=== PATIENT | male | born 1960 | race Caucasian/White ===

== ENCOUNTER → 2018-09-10 08:07 | Outpatient (CLI) | payer OTHER, SELFPAY ==
[2018-09-10 08:55] LABS: Add Manual Diff / Slide Review NO; Basophils Absolute Auto 0 /uL (0-100); Basophils Percent Auto 0.5 % (0-2); Eosinophils Absolute Auto 200 /uL (0-450); Eosinophils Percent Auto 3.3 % (2-4); Hematocrit 44.9 % (41-53); Hemoglobin 15.6 g/dL (13.5-17.5); Lymphocytes Absolute Auto 1700 /uL (1100-4500); Lymphocytes Percent Auto 27.3 % (25-40); Mean Corpuscular HGB Conc 34.8 % (30-36); Mean Corpuscular Hemoglobin 32.4 PG (26-34); Monocytes Absolute Auto 600 /uL (0-900); Monocytes Percent Auto 9.6 % (3-14); Neutrophils Absolute Auto 3600 /uL (1500-7000); Neutrophils Percent Auto 59.3 % (50-75); Platelet Count 261 X10^3/uL (150-400); Red Blood Cell Count 4.83 X10^6/uL (4.5-5.9); Red Cell Distribution Width 13.3 % (11.6-14.8); White Blood Cell Count 6.1 X10^3/uL (4.5-11.0)
[2018-09-10 09:20] LABS: Alanine Aminotransferase 21 IU/L (21-72); Albumin 4.2 g/dL (3.5-5.0); Albumin Globulin Ratio 1.5 (1.0-2.8); Alkaline Phosphatase 72 U/L (38-126); Aspartate Aminotransferase 24 IU/L (17-59); Bilirubin Total 0.9 mg/dL (0.2-1.3); Blood Urea Nitrogen 18 mg/dL (9-20); Calcium 9.4 mg/dL (8.4-10.2); Carbon Dioxide 29 mmol/L (22-32); Chloride 104 mmol/L (98-107); Cholesterol 195 mg/dL (140-199); Estimated Glomerular Filt Rate > 60.0 mL/min (>60); Globulin 2.8 g/dL (1.7-4.1); Glucose 104 mg/dL (70-100); HDL Cholesterol 56 mg/dL (40-60); HEMOLYSIS < 15 (0-50); LDL Cholesterol Calculated 121 mg/dL (<100); Potassium 4.4 mmol/L (3.4-5.1); Sodium 140 mmol/L (137-145); Triglycerides 92 mg/dL (35-150)
[2018-09-10 09:49] LABS: Prostate Specific Antigen Scrn 2.42 ng/mL (0.1-4.0)
[2018-09-10 09:50] LABS: Thyroid Stimulating Hormone 1.58 uIU/mL (0.47-4.68)
== END ==
PROVIDERS: PCP Family Medicine; Visit Provider Family Medicine
DX: Z13.29 Encounter for screening for other suspected endocrine disorder (principal); Z12.5 Encounter for screening for malignant neoplasm of prostate; I10 Essential (primary) hypertension; E78.2 Mixed hyperlipidemia
CPT/HCPCS: 36415; 80053; 80061; 84443; 85025; G0103

== ENCOUNTER 2019-06-15 10:42 | Emergency (ER) | payer OTHER, SELFPAY ==
[2019-06-15 10:45] VITALS: BP 157/91; PULSE 83; RESP 14; TEMP 36.7; O2SAT 100
--- NOTE | 2019-06-15 10:54 | PC.NURSE ---
arrived with bloody bandage right upper thigh, dressing removed, noted 2cm laceration, no active bleeding at this time, +distal cms intact. denies other injuries. site cleansed with water, tolerated well.
[2019-06-15] MEDS: TET,DIPH,PERTUSS(ACELL),VAC/PF 0.5 ML SYRINGE IM (11:00)
--- NOTE | 2019-06-15 11:16 | ED_ITS ---
HPI - Wound/Laceration <CEASAR Luis-BC - Last Filed: 06/15/19 12:19> General Chief Complaint: Wound/Laceration Stated Complaint: Rt leg cut above knee Time Seen by Provider: 06/15/19 11:09 Source: patient Mode of arrival: Ambulatory Limitations: no limitations History of Present Illness HPI narrative: The patient is a 58-year-old male nonsmoker with history of hypertension who presents with a chief complaint of a laceration above his right knee. 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 He does not know when his last tetanus was prior to today. He states that the box sealing machine operator was clean, does not think he has any chip fractures or foreign bodies. It happened just prior to arrival and he states he wanted to suture himself at home, but he did not have any numbing medicine. The patient works as in [employer], so he has sutures at home. Related Data Previous Rx's Medication Instructions Recorded amlodipine 5 mg tablet 5 mg PO QDAY #90 tab 05/10/19 lisinopril 40 mg tablet 40 mg PO QDAY #90 tab 05/10/19 cyclobenzaprine 10 mg tablet 10 mg PO BID #20 tab 05/17/19 naproxen 500 mg tablet 500 mg PO BID #30 tab 05/17/19 Allergies Allergy/AdvReac Type Severity Reaction Status Date / Time No Known Drug Allergies Allergy Verified 06/15/19 10:51 Review of Systems <CEASAR Luis-BC - Last Filed: 06/15/19 12:19> Review of Systems Narrative: GENERAL: Denies chills, fatigue, malaise, fever, sweats. HEENT: Denies sinus pain, ear pain, sore throat, difficulty swallowing, dizziness. RESPIRATORY: Denies dyspnea, cough, wheezing, hemoptysis, sputum. CARDIOVASCULAR: Denies chest pain, palpitations, orthopnea, edema, GASTROINTESTINAL: Denies nausea, vomiting, abdominal pain, diarrhea, constipation, melena. : Denies dysuria, frequency, incontinence, hematuria, urinary retention. MUSCULOSKELETAL: denies weakness, joint pain, or bony pain SKIN: See HPI NEUROLOGIC: Denies weakness, headache, numbness, change in speech, confusion, se izures, incoordination. PSYCHIATRIC: No concerning psychosocial issues. 12 point review of systems is negative except for those stated above Patient History <ANGE Luis - Last Filed: 06/15/19 12:19> Medical History Back pain (Acute) Family History Father Age: 92 Hypertension Sister Age: 55 Melanoma Social History Smoking Status: Never smoker Smoking Status: Never smoker alcohol intake frequency: holidays/special occasions only Substance Use Type: does not use Exam <ANGE Luis - Last Filed: 06/15/19 12:19> Narrative Exam Narrative: GENERAL: This is a well-nourished, well-developed patient, in no acute distress HEAD: Atraumatic. Normocephalic. No temporal or scalp tenderness. EYES: Pupils equal round and reactive. Extraocular motions intact. No scleral icterus. No injection or drainage. ENT: Nose without bleeding, purulent drainage or septal hematoma. Throat without erythema, tonsillar hypertrophy or exudate. Uvula midline. Airway patent. NECK: Trachea midline. No JVD or lymphadenopathy. Supple, nontender, no meningeal signs. CARDIOVASCULAR: Regular rate and rhythm RESPIRATORY: No cough. No increased respiratory effort. No accessory muscle use. EXTREMITIES: No clubbing, cyanosis, or edema. No joint tenderness, effusion, or edema noted. Right pedal pulses intact. Laceration as noted in skin exam. Full range of motion noted bilateral knees. BACK: Nontender without deformity or crepitance. No flank tenderness. NEURO: AOx3. SKIN: 1.5 cm laceration just superior to right knee. Through dermis. Fascia visible. No obvious muscle or tendon involvement. Linear, well-approximated Initial Vital Signs Initial Vital Signs: Vital Signs Temperature 98.0 F 06/15/19 10:45 Pulse Rate 83 06/15/19 10:45 Respiratory Rate 14 06/15/19 10:45 Blood Pressure 157/91 H 06/15/19 10:45 Pulse Oximetry 100 06/15/19 10:45 <Xu Maciel MD - Last Filed: 06/15/19 14:25> Initial Vital Signs Initial Vital Signs: Vital Signs Temperature 98.0 F 06/15/19 10:45 Pulse Rate 83 06/15/19 10:45 Respiratory Rate 14 06/15/19 10:45 Blood Pressure 157/91 H 06/15/19 10:45 Pulse Oximetry 100 06/15/19 10:45 Procedures <ANGE Luis - Last Filed: 06/15/19 12:19> Laceration Repair Laceration 1: Site: lower extremity Side (If applicable): right Size (cm): 1.5 Description: linear Depth: simple, single layer Local Anesthetic: lidocaine 1% and with bicarb Amount of anesthesia used (mL): 3 Pre-repair: wound explored, irrigated extensively (Cleansed with chlorhexidine) and deep structures intact Skin layer closed with: nylon Size (cm): 4-0 Number of sutures: 2 Technique: simple, interrupted Course <ANGE Luis - Last Filed: 06/15/19 12:19> Orders Ordered: Discontinued Medications Diphtheria/Tetanus/Acell Pertussis (Adacel) 0.5 ml IM .ONCE ONE Stop: 06/15/19 10:56 Last Admin: 06/15/19 11:00 Dose: 0.5 ml Documented by: MEISENB Lidocaine/Sodium Bicarbonate (Buffered Lidocaine 10 Ml Syr) 10 ml INJ NOW ONE Stop: 06/15/19 11:17 Last Admin: 06/15/19 11:31 Dose: 10 ml Documented by: ROBBI Vital Signs Vital signs: Vital Signs - 8 hr 06/15/19 10:45 06/15/19 11:46 Temperature 98.0 F Pulse Rate 83 75 Respiratory Rate 14 Blood Pressure 157/91 H 128/74 Pulse Oximetry 100 97 <Xu Maciel MD - Last Filed: 06/15/19 14:25> Orders Ordered: Discontinued Medications Diphtheria/Tetanus/Acell Pertussis (Adacel) 0.5 ml IM .ONCE ONE Stop: 06/15/19 10:56 Last Admin: 06/15/19 11:00 Dose: 0.5 ml Documented by: MEISENB Lidocaine/Sodium Bicarbonate (Buffered Lidocaine 10 Ml Syr) 10 ml INJ NOW ONE Stop: 06/15/19 11:17 Last Admin: 06/15/19 11:31 Dose: 10 ml Documented by: ROBBI Vital Signs Vital signs: Vital Signs - 8 hr 06/15/19 10:45 06/15/19 11:46 Temperature 98.0 F Pulse Rate 83 75 Respiratory Rate 14 Blood Pressure 157/91 H 128/74 Pulse Oximetry 100 97 MDM - Wound/Laceration <MELODY LuisP-BC - Last Filed: 06/15/19 12:19> [facility] Narrative Medical decision making narrative: The patient is a 58-year-old male who presents with a chief complaint of laceration above his right knee. His tetanus was updated. He declined an x-ray. Wound was closed as per procedural note which the patient tolerated very well. He was cleansed with chlorhexidine. I discussed at length monitoring for signs and symptoms of infection, follow up for suture removal, coming back to the emergency department for any acute concerns. Patient has no questions or concerns upon discharge and states understanding return precautions as well as follow-up care. Discharge Plan Departure Patient Disposition: Home Clinical Impression: Laceration Discharge Date/Time: 06/15/19 11:47 Instructions: How to Care for a Laceration After Repair, DI for Laceration Repair, DI for Minor Laceration Activity Restrictions/Additional Instructions: Thank you for trusting us with your care today. 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 I placed 2 sutures in your laceration today. We also updated your tetanus. Please monitor your wound for signs and symptoms of infection such as redness, pus etcetera. Please follow up with these occur. I suggest not swimming or sitting and pulls etcetera as this can increase your chance of infection. Your sutures need to come out in approximately 8-10 days Please come back to emergency department for any acute concerns. We suggest following up with primary care provider in the next few days. Prescriptions: No Action cyclobenzaprine 10 mg tablet 10 mg PO BID Qty: 20 RF: 0 naproxen 500 mg tablet 500 mg PO BID Qty: 30 RF: 0 amlodipine [Norvasc] 5 mg tablet 5 mg PO QDAY Qty: 90 RF: 0 lisinopril 40 mg tablet 40 mg PO QDAY Qty: 90 RF: 0 Referrals: Freddie Knight MD [Primary Care Provider] - <Xu Maciel MD - Last Filed: 06/15/19 14:25> Cosign ED Attending Cosignature Attestation: I was immediately available in the department for consultation. This documentation has been reviewed and I agree with assessment and plan. Supervised by Xu Maciel MD
[2019-06-15] MEDS: LIDO 1%/SOD BICARB 8.4% (10ML) 10 ML SYRINGE INJ (11:31)
[2019-06-15 11:46] VITALS: BP 128/74; PULSE 75; O2SAT 97
== END 2019-06-15 11:47 | disposition home or self-care (01) ==
PROVIDERS: Emergency Provider Nurse Practitioner Family; PCP Family Medicine
DX: S81.011A Laceration without foreign body, right knee, initial encounter (principal); W27.8XXA Contact with other nonpowered hand tool, initial encounter; I10 Essential (primary) hypertension; Z23 Encounter for immunization
CPT/HCPCS: 12001; 90471; 99283; 99284; 90715

== ENCOUNTER 2019-12-29 08:15 | Outpatient (RCR) | payer OTHER, SELFPAY ==
--- NOTE | 2019-09-09 18:00 | PT.OPPOC ---
Physical, Occupational & Speech Therapy At [facility] Current Diagnoses Dorsalgia, unspecified (09/09/19) Other muscle spasm (09/09/19) Abnormal posture (09/09/19) Visit Care Team Role Provider Type Freddie Knight MD Attending Provider Physician Primary Care Provider Referring Provider Specialty: Family Practice Address: [address] [place] [address], [facility] Email: [email or web address] Plan Of Care PT-OP-T Assessment and Plan Start: 09/08/19 17:39 Freq: Status: Active Protocol: Document 09/09/19 08:18 LRN (Rec: 09/09/19 17:24 LRN [id number]) Physical Therapy Assessment Rehab Potential Rehabilitation Potential Good Evaluation Complexity Number of Personal Factors/Comorbidities 1-2 Number of Body Systems Impaired 4 or More Clinical Presentation at Evaluation Evolving Impairments Impairments Activity Tolerance,Functional Activities,Pain,Posture,ROM, Strength Goals Four Impairment Pain with traveling/work activities due to poor body awareness & core stab. Short Term Goal (STG) Pt will be educated in proper sitting posture, proper body mechanics for sitting, lifting , reaching, and throwing activities for painfree mobility. STG Duration 10/17/19 Alf Goal (LTG) Improve core stability with pt able to maintain transverse abdominus contraction during above stated functional activities. LTG Duration 11/11/19 Three Impairment Low back pain with sit to stand transfers after prolonged sitting Short Term Goal (STG) Pt will demonstrate improved sitting posture and postural awareness with ability to sit 30 minutes without onset of pain transferring to standing. STG Duration 10/14/19 Ballet Professor Goal (LTG) Improve posture in standing with lessening of C-curve ( apex on L) and pt able to exercise and perform work duties with awareness of proper body mechanics and posture. LTG Duration 11/11/19 Two Impairment Decreased hip mobility (Ext lacks 10 lokesh, ER 20 L, 35 R, IR 25 L, 45 R) Short Term Goal (STG) Pt will be educated in a self care hip flexibility home program of hip stretches. STG Duration 09/23/19 Ballet Professor Goal (LTG) Improve hip mobility for movement painfree in the anterior hip and low back (hip Ext 8 deg's, ER 40 deg's, IR 45 deg's bilaterally) LTG Duration 11/11/19 One Impairment Pt lacks appropriate self care HEP. Alf Goal (LTG) Pt will be independent and safe with a self care HEP to prevent onset of back pain. 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 The pt will benefit from skilled physical therapy to improve hip and trunk mobility, increase core and hip stability, improve posture and body mechanics and education in self care activities and exercises. Physical Therapy Plan Frequency and Duration Frequency of Treatment 2x/Week Plan of Care Start Date 09/09/19 Plan of Care End Date 11/11/19 Therapeutic Interventions Therapeutic Interventions Home Exercise Program,Joint Mobilizations,Manual Therapy, Neuromuscular Re-education, Patient/Caregiver Education, Self-Care/Home Management,Soft Tissue Mobilization,Taping, Therapeutic Activities, Therapeutic Exercises Modalities Cold Pack/Ice Massage,Electric Stimulation,Hot Packs, Ultrasound Next Visit Focus/Plan Next Note Type Treatment Note Next Visit Plan Review instructed home ex given (Hip flexor stretch) & issue HEP, Improve postural awareness, Educate pt in proper sitting ( chair/plane/sofa), standing posture, Educate proper posture and body mechanics with functional activities, Assess trunk strength and automatic TA activation, JMT to lower thoracic and lumbar spine and ex to correct for C-Curve, Progress onto HEP of hip and low back stretches, & core strengthening, End modalities of E-Stim to the back or ice to anterior hips/LB in prone for hip flexor stretch, or passive stretch to hip flexors on MH. Plan of Care Dates Plan of Care Start Date 09/09/19 Plan of Care End Date 11/11/19 Electronically Signed by: Leny Jensen, PT 09/13/19 2219 Please Sign and Return: I have reviewed this Plan of Care and certify that the skilled therapy services above are required to meet the patient?s needs. Physician Signature Date Printed Name and Credentials Clinical Instructor Signature Printed Name and Credentials
--- NOTE | 2019-09-09 18:12 | PT.OIE ---
Current Diagnoses Dorsalgia, unspecified (09/09/19) Other muscle spasm (09/09/19) Abnormal posture (09/09/19) Past Medical History (Last Reviewed 06/15/19 @ 12:15 by ANGE Luis) Back pain (Acute) Visit Care Team Role Provider Type Freddie Knight MD Attending Provider Physician Primary Care Provider Referring Provider Specialty: Family Practice Address: [address] [place] [address], [facility] Email: [email or web address] Physical Therapy Initial Evaluation PT-OP-A Visit Information Start: 09/08/19 17:39 Freq: Status: Active Protocol: Document 09/09/19 08:18 LRN (Rec: 09/09/19 09:08 LRN [id number]) Out-Patient Physical Therapy Visit Information Visit Information Visit Type Initial Evaluation Visit Start Time 08:18 Visit Stop Time 09:08 Total Visit Minutes 50 Visit Number 1 Evaluation Information Evaluation Date 09/09/19 Precautions Precautions Per history review: Plantar fasciitis, essential HTN, L4- L5 surgery thought to be a fusion. PT-OP-B Current Condition Start: 09/08/19 17:39 Freq: Status: Active Protocol: Document 09/09/19 08:18 LRN (Rec: 09/09/19 09:08 LRN [id number]) Current Condition History of Current Condition Onset Date April 2019 Current Complaints Back pain History of Current Condition Pt states he was picking something up (records indicate it was a full bucket of water ) when he experienced back pain. He reports he has had to go [facility] for pain medications to function; therefore the last visit they gave him a referral for PT, then everything shut down due to COVID 19. Currently he has pain in the anterior hips (indicating area of the ASIS) that radiates up his lateral trunk and back bilaterally and sometimes into the ribs posteriorly. He states he can sit, but when he gets up the pain in the ASIS' s pulls him forward, and that it radiates to the back (along iliac crest) and up the back. Sitting makes it worse. Currently he feels he has an episode of back pain coming on . During an episode, he states, the severity of pain spikes 1-9/10, causing him to walk around bent over holding onto the L LB, and it pulls him to the L side,. He is extremely slow to stand. He reports if he hits his heel walking he gets a jolt of pain in the back. 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 He now sits at a desk more since 2001 after getting and having kids. He states he stopped being physically active. Prior Treatments and Tests X-ray 4 yrs ago showed signs of arthritis in the back. Report is unavailable. 6 months rehabilitation after initial surgery (20 yrs ago) and was able to bike and run again. Developmental History Developmental History 20 yrs ago pt had surgery at L4-L5 in [facility] for a disc injury. Something went wrong and he ended up with a severe foot drop that eventually went away. He initially recovered while positioning in supine with knees flexed. He then noticed anterior hip pain when lying straight. He started to ex and do triathlons to counteract the problem. Since then he has had pain and spasms in his back and it has increased in frequency as he has aged. Treatment Goals Patient/Caregiver Goals Pt goal is to stretch episodes out to not have pain, Build muscles to help prevent onset, and to learn what exercises to do to prevent onset. Prior Functional Status Baseline Function- ADL's Modified Independent Baseline Function- Mobility Modified Independent Baseline Function- Gait Modified gait to be careful not to hit heel Baseline Function- Work/School Has ASIS and LBP, dull in nature, after sitting. Baseline Function- Recreation/Hobbies Careful with movements ( throwing ball) Baseline Function- Other Pain before injury/onset was 1 -04/04. Current Functional Impairments (Reported) Functional Limitations- ADL's Dull pain in ASIS radiating to low back after sitting. Takes awhile to straighten up after sitting. Recent episode caused by bending over to put shoes. Denies peripheral pain. Functional Limitations- Mobility/Gait If hits heel with gait gets a jolt of pain in bilateral lower thoracic and low back. When in an episode if hits foot, will get pain. Functional Limitations- Work/School Sitting limit to 1 hour or less. Functional Limitations- Recreation/ Unable to play football with Hobbies son. 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 9 yr old daughter and 11 yr old son. PT-OP-C Subjective Start: 09/08/19 17:39 Freq: Status: Active Protocol: Document 09/09/19 08:18 LRN (Rec: 09/09/19 15:00 LRN [id number]) Patient Questionnaires Oswestry Low Back Index Oswestry Score 30 Oswestry Impairment 20 to 39% Impaired (Score 20- 39) OP-PT Pain Assessment Pain Assessment Grid Paper Pain Assessment Grid Completed Yes Location Left Lower Thoracic Pain Location Details Left lower thoracic and ribs Intensity 3 Description Aching Frequency Intermittent Low back Pain Location Details Across lumbar region Intensity 3 Scale Used Numeric (0 - 10) Description Aching L Anterior Hip Pain Location Details ASIS Intensity 3 Scale Used Numeric (0 - 10) Description Aching R Anterior hip Pain Location Details ASIS Intensity 3 Scale Used Numeric (0 - 10) Description Aching PT-OP-G Mobility & Gait Start: 09/08/19 17:39 Freq: Status: Active Protocol: Document 09/09/19 08:18 LRN (Rec: 09/09/19 17:24 LRN [id number]) OP Mobility Evaluation Bed Mobility Rolling Independent Supine to and from Sit Independent Transfers Sit to Stand With difficulty leaning to L side and holds his L low back. PT-OP-J Posture/Palpation/Skin Start: 09/08/19 17:39 Freq: Status: Active Protocol: Document 09/09/19 08:18 LRN (Rec: 09/09/19 17:24 LRN [id number]) Posture Evaluation Comments Posture Comments Standing the pt has a C-curve of his back with the apex on the left at ~T6. His R Iliac crest is high. Palpation Assessment Location L lower T/S Palpation Location T6-T8 Palpation Findings Soft Tissue Tightness,Muscle Guarding,Tenderness L Lumbar paraspinals Palpation Location L lumbar paraspinals Palpation Findings Soft Tissue Tightness,Muscle Guarding,Tenderness PT-OP-K Range of Motion Start: 09/08/19 17:39 Freq: Status: Active Protocol: Document 09/09/19 08:18 LRN (Rec: 09/09/19 17:24 LRN [id number]) Lumbar Spine Range of Motion Lumbar Spine Active Degrees Testing Position Standing Flexion 70 Extension 20 Lateral Flexion Left 10 Lateral Flexion Right 15 ROM Limitations Soft Tissue Tightness Comments Active rotation is ~20 deg's bilaterally. Rotation R is normal spinal movement. Rotation L has a pivot at L2. Hip Goniometric Range of Motion Hip Right Passive Testing Position Supine Straight Leg Raise 65 Internal Rotation 45 External Rotation 35 Left Passive Testing Position Supine Straight Leg Raise 60 Internal Rotation 25 External Rotation 20 Hip ROM Limitations Hip ROM Limitations Soft Tissue Tightness,Pain Comments Bilateral Hip ext: lacks ~10 deg's as assessed during James test. PT-OP-L Special Tests Start: 09/08/19 17:39 Freq: Status: Active Protocol: Document 09/09/19 08:18 LRN (Rec: 09/09/19 17:24 LRN [id number]) Special Tests Lumbar Spine Special Tests Straight Leg Raise Test Results Borderline right, negative left Comments 60 degs right with ASIS pain, 65 deg's left with HS tightness Hip Special Tests James Test Results postive bilaterally Comments Tight Iliopsoas bilaterally PT-OP-M Strength Start: 09/08/19 17:39 Freq: Status: Active Protocol: Document 09/09/19 08:18 LRN (Rec: 09/09/19 17:24 LRN [id number]) Trunk Strength Trunk Manual Muscle Testing Testing Position Supine Flexion 5 Normal Hip Strength Hip Manual Muscle Testing Right Flexion (L2) 4+ Good+ Adduction 3+ Fair+ Comments Generally 5/5 except as indicated above. Left Comments Generally 5/5 except as indicated above. PT-OP-Q Treatments Start: 09/08/19 17:39 Freq: Status: Active Protocol: Document 09/09/19 08:18 LRN (Rec: 09/09/19 17:24 LRN [id number]) Therapeutic Exercises Supine Exercises Hip flexor stretch Supine Exercise Name James test position with ext of straight leg, followed by active stretch Side bilateral Reps/Minutes 60 plus active stretch x 10 Self-Care/Home Management Treatment Education Patient Education Home Exercise Program Other Education Discussed results of evaluation and plan of care. Activities Self-Care/Home Management Activities I/S pt in home ex of hip flexor stretch as reviewed ( see supine ex) with instruction on hold time and reps for active stretch and for pt to do 2 times, 2-3 times per day. PT-OP-T Assessment and Plan Start: 09/08/19 17:39 Freq: Status: Active Protocol: Document 09/09/19 08:18 LRN (Rec: 09/09/19 17:24 LRN [id number]) Physical Therapy Assessment Rehab Potential Rehabilitation Potential Good Evaluation Complexity Number of Personal Factors/Comorbidities 1-2 Number of Body Systems Impaired 4 or More Clinical Presentation at Evaluation Evolving Impairments Impairments Activity Tolerance,Functional Activities,Pain,Posture,ROM, Strength Goals Four Impairment Pain with traveling/work activities due to poor body awareness & core stab. Short Term Goal (STG) Pt will be educated in proper sitting posture, proper body mechanics for sitting, lifting , reaching, and throwing activities for painfree mobility. STG Duration 10/17/19 Lighting Designer Goal (LTG) Improve core stability with pt able to maintain transverse abdominus contraction during above stated functional activities. LTG Duration 11/11/19 Three Impairment Low back pain with sit to stand transfers after prolonged sitting Short Term Goal (STG) Pt will demonstrate improved sitting posture and postural awareness with ability to sit 30 minutes without onset of pain transferring to standing. STG Duration 10/14/19 Alf Goal (LTG) Improve posture in standing with lessening of C-curve ( apex on L) and pt able to exercise and perform work duties with awareness of proper body mechanics and posture. LTG Duration 11/11/19 Two Impairment Decreased hip mobility (Ext lacks 10 lokesh, ER 20 L, 35 R, IR 25 L, 45 R) Short Term Goal (STG) Pt will be educated in a self care hip flexibility home program of hip stretches. STG Duration 09/23/19 Alf Goal (LTG) Improve hip mobility for movement painfree in the anterior hip and low back (hip Ext 8 deg's, ER 40 deg's, IR 45 deg's bilaterally) LTG Duration 11/11/19 One Impairment Pt lacks appropriate self care HEP. Lighting Designer Goal (LTG) Pt will be independent and safe with a self care HEP to prevent onset of back pain. 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 The pt will benefit from skilled physical therapy to improve hip and trunk mobility, increase core and hip stability, improve posture and body mechanics and education in self care activities and exercises. Physical Therapy Plan Frequency and Duration Frequency of Treatment 2x/Week Plan of Care Start Date 09/09/19 Plan of Care End Date 11/11/19 Therapeutic Interventions Therapeutic Interventions Home Exercise Program,Joint Mobilizations,Manual Therapy, Neuromuscular Re-education, Patient/Caregiver Education, Self-Care/Home Management,Soft Tissue Mobilization,Taping, Therapeutic Activities, Therapeutic Exercises Modalities Cold Pack/Ice Massage,Electric Stimulation,Hot Packs, Ultrasound Next Visit Focus/Plan Next Note Type Treatment Note Next Visit Plan Review instructed home ex given (Hip flexor stretch) & issue HEP, Improve postural awareness, Educate pt in proper sitting ( chair/plane/sofa), standing posture, Educate proper posture and body mechanics with functional activities, Assess trunk strength and automatic TA activation, JMT to lower thoracic and lumbar spine and ex to correct for C-Curve, Progress onto HEP of hip and low back stretches, & core strengthening, End modalities of E-Stim to the back or ice to anterior hips/LB in prone for hip flexor stretch, or passive stretch to hip flexors on MH.
--- NOTE | 2019-09-23 17:12 | PT.OTN ---
Current Diagnoses Dorsalgia, unspecified (09/23/19) Other muscle spasm (09/23/19) Abnormal posture (09/23/19) Physical Therapy Treatment Note PT-OP-A Visit Information Start: 09/08/19 17:39 Freq: Status: Active Protocol: Document 09/23/19 09:51 LRN (Rec: 09/23/19 10:34 LRN [id number]) Out-Patient Physical Therapy Visit Information Visit Information Visit Type Treatment Note Visit Start Time 09:51 Visit Stop Time 10:40 Total Visit Minutes 49 Visit Number 2 Evaluation Information Evaluation Date 09/09/19 Precautions Precautions Per history review: Plantar fasciitis, essential HTN, L4- L5 surgery thought to be a fusion. 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 9 yr old daughter and 11 yr old son. PT-OP-C Subjective Start: 09/08/19 17:39 Freq: Status: Active Protocol: Document 09/23/19 09:51 LRN (Rec: 09/23/19 10:34 LRN [id number]) OP-PT Subjective Patient Comments Patient Comments States 4 days ago had to drop the anchor to his boat, then pulled it up quickly after starting engine, did a few times. States took Advil today so pain is okay, rated 5 /10. PT-OP-G Mobility & Gait Start: 09/08/19 17:39 Freq: Status: Active Protocol: Document 09/09/19 08:18 LRN (Rec: 09/09/19 17:24 LRN [id number]) OP Mobility Evaluation Bed Mobility Rolling Independent Supine to and from Sit Independent Transfers Sit to Stand With difficulty leaning to L side and holds his L low back. PT-OP-J Posture/Palpation/Skin Start: 09/08/19 17:39 Freq: Status: Active Protocol: Document 09/09/19 08:18 LRN (Rec: 09/09/19 17:24 LRN [id number]) Posture Evaluation Comments Posture Comments Standing the pt has a C-curve of his back with the apex on the left at ~T6. His R Iliac crest is high. Palpation Assessment Location L lower T/S Palpation Location T6-T8 Palpation Findings Soft Tissue Tightness,Muscle Guarding,Tenderness L Lumbar paraspinals Palpation Location L lumbar paraspinals Palpation Findings Soft Tissue Tightness,Muscle Guarding,Tenderness PT-OP-K Range of Motion Start: 09/08/19 17:39 Freq: Status: Active Protocol: Document 09/09/19 08:18 LRN (Rec: 09/09/19 17:24 LRN [id number]) Lumbar Spine Range of Motion Lumbar Spine Active Degrees Testing Position Standing Flexion 70 Extension 20 Lateral Flexion Left 10 Lateral Flexion Right 15 ROM Limitations Soft Tissue Tightness Comments Active rotation is ~20 deg's bilaterally. Rotation R is normal spinal movement. Rotation L has a pivot at L2. Hip Goniometric Range of Motion Hip Right Passive Testing Position Supine Straight Leg Raise 65 Internal Rotation 45 External Rotation 35 Left Passive Testing Position Supine Straight Leg Raise 60 Internal Rotation 25 External Rotation 20 Hip ROM Limitations Hip ROM Limitations Soft Tissue Tightness,Pain Comments Bilateral Hip ext: lacks ~10 deg's as assessed during James test. PT-OP-L Special Tests Start: 09/08/19 17:39 Freq: Status: Active Protocol: Document 09/09/19 08:18 LRN (Rec: 09/09/19 17:24 LRN [id number]) Special Tests Lumbar Spine Special Tests Straight Leg Raise Test Results Borderline right, negative left Comments 60 degs right with ASIS pain, 65 deg's left with HS tightness Hip Special Tests James Test Results postive bilaterally Comments Tight Iliopsoas bilaterally PT-OP-M Strength Start: 09/08/19 17:39 Freq: Status: Active Protocol: Document 09/09/19 08:18 LRN (Rec: 09/09/19 17:24 LRN [id number]) Trunk Strength Trunk Manual Muscle Testing Testing Position Supine Flexion 5 Normal Hip Strength Hip Manual Muscle Testing Right Flexion (L2) 4+ Good+ Adduction 3+ Fair+ Comments Generally 5/5 except as indicated above. Left Comments Generally 5/5 except as indicated above. PT-OP-Q Treatments Start: 09/08/19 17:39 Freq: Status: Active Protocol: Document 09/23/19 09:51 LRN (Rec: 09/23/19 10:34 LRN [id number]) Therapeutic Exercises Supine Exercises Hands/knees push Supine Exercise Name Hands/knees push - awareness training for TA Reps/Minutes 2' TA tightening Supine Exercise Name TA tightening Reps/Minutes 20 Comments Awareness training w/breathing , coughing, leg moving Hip flexor stretch Supine Exercise Name James test position with ext of straight leg, followed by active stretch Side bilateral Reps/Minutes 60 plus active stretch x 10 Self-Care/Home Management Treatment Education Patient Education Home Exercise Program Other Education Body mechanics training for lifting from a boat or higher surface using legs to brace and pelvic bracing. Activities Self-Care/Home Management Activities HEP Issued & reviewed: Hip flexor stretch & TA tightening , and Lower abdominal Progression. Handout issued for TA anatomy education, Discussed Pelvic Brace w/ Daily activities, teaching of neutral spine positioning, discussing the different daily activities and how to manage the core with pelvic bracing. PT-OP-R Modalities Start: 09/08/19 17:39 Freq: Status: Active Protocol: Document 09/23/19 09:51 LRN (Rec: 09/23/19 10:34 LRN [id number]) Electric Stimulation Electric Stimulation Interferential Current (IFC) Body Location Pads: midback>Low back paraspinals Duration (Minutes) 15 Intensity 10 Target/Sweep Sweep Patient Position Hooklying Combined With Heat/Cold Hot Pack Comments Hot pack to back with bolster Hot Pack/Cold Pack Treatment Hot Pack Location Back>LB Patient Position Hooklying Treatment Duration (minutes) 15 Comments Bolster under legs PT-OP-T Assessment and Plan Start: 09/08/19 17:39 Freq: Status: Active Protocol: Document 09/23/19 09:51 LRN (Rec: 09/23/19 10:34 LRN [id number]) Physical Therapy Assessment Goals Four Impairment Pain with traveling/work activities due to poor body awareness & core stab. Short Term Goal (STG) Pt will be educated in proper sitting posture, proper body mechanics for sitting, lifting , reaching, and throwing activities for painfree mobility. STG Duration 10/17/19 Detention Goal (LTG) Improve core stability with pt able to maintain transverse abdominus contraction during above stated functional activities. LTG Duration 11/11/19 Three Impairment Low back pain with sit to stand transfers after prolonged sitting Short Term Goal (STG) Pt will demonstrate improved sitting posture and postural awareness with ability to sit 30 minutes without onset of pain transferring to standing. STG Duration 10/14/19 Computer Systems Manager Goal (LTG) Improve posture in standing with lessening of C-curve ( apex on L) and pt able to exercise and perform work duties with awareness of proper body mechanics and posture. LTG Duration 11/11/19 Two Impairment Decreased hip mobility (Ext lacks 10 lokesh, ER 20 L, 35 R, IR 25 L, 45 R) Short Term Goal (STG) Pt will be educated in a self care hip flexibility home program of hip stretches. STG Duration 09/23/19 Detention Goal (LTG) Improve hip mobility for movement painfree in the anterior hip and low back (hip Ext 8 deg's, ER 40 deg's, IR 45 deg's bilaterally) LTG Duration 11/11/19 One Impairment Pt lacks appropriate self care HEP. Detention Goal (LTG) Pt will be independent and safe with a self care HEP to prevent onset of back pain. LTG Duration 11/11/19 (: Progressing) Assessment Summary Assessment Pt able to understand a proper TA contraction. Doing hip flexor stretch properly now after training. Pt does appear to be performing a reflexive TA contraction with cough, acharya and breathing. Physical Therapy Plan Frequency and Duration Frequency of Treatment 2x/Week Plan of Care Start Date 09/09/19 Plan of Care End Date 11/11/19 Next Visit Focus/Plan Next Note Type Treatment Note Next Visit Plan Assess home response to E-Stim . Review home ex given (Hip flexor stretch & TA progression), Improve postural awareness, Educate pt in proper sitting ( chair/plane/sofa), standing posture, Assess trunk strength, JMT to lower thoracic and lumbar spine and ex to correct for C-Curve, Progress onto HEP of hip and low back stretches, & core strengthening, End modalities of E-Stim to the back or ice to anterior hips/LB in prone for hip flexor stretch, or passive stretch to hip flexors on MH.
--- NOTE | 2019-09-26 17:44 | PT.OTN ---
Current Diagnoses Dorsalgia, unspecified (09/26/19) Other muscle spasm (09/26/19) Abnormal posture (09/26/19) Physical Therapy Treatment Note PT-OP-A Visit Information Start: 09/08/19 17:39 Freq: Status: Active Protocol: Document 09/26/19 09:08 LRN (Rec: 09/26/19 09:47 LRN [id number]) Out-Patient Physical Therapy Visit Information Visit Information Visit Type Treatment Note Visit Start Time 09:08 Visit Stop Time 09:56 Total Visit Minutes 48 Visit Number 3 Evaluation Information Evaluation Date 09/09/19 Precautions Precautions Per history review: Plantar fasciitis, essential HTN, L4- L5 surgery thought to be a fusion. 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 9 yr old daughter and 11 yr old son. PT-OP-C Subjective Start: 09/08/19 17:39 Freq: Status: Active Protocol: Document 09/26/19 09:08 LRN (Rec: 09/26/19 09:47 LRN [id number]) OP-PT Subjective Patient Comments Patient Comments States after last session he has felt better than usual. No midback pain and hasn't taken any Tylenol since last treatment. PT-OP-G Mobility & Gait Start: 09/08/19 17:39 Freq: Status: Active Protocol: Document 09/09/19 08:18 LRN (Rec: 09/09/19 17:24 LRN [id number]) OP Mobility Evaluation Bed Mobility Rolling Independent Supine to and from Sit Independent Transfers Sit to Stand With difficulty leaning to L side and holds his L low back. PT-OP-J Posture/Palpation/Skin Start: 09/08/19 17:39 Freq: Status: Active Protocol: Document 09/09/19 08:18 LRN (Rec: 09/09/19 17:24 LRN [id number]) Posture Evaluation Comments Posture Comments Standing the pt has a C-curve of his back with the apex on the left at ~T6. His R Iliac crest is high. Palpation Assessment Location L lower T/S Palpation Location T6-T8 Palpation Findings Soft Tissue Tightness,Muscle Guarding,Tenderness L Lumbar paraspinals Palpation Location L lumbar paraspinals Palpation Findings Soft Tissue Tightness,Muscle Guarding,Tenderness PT-OP-K Range of Motion Start: 09/08/19 17:39 Freq: Status: Active Protocol: Document 09/09/19 08:18 LRN (Rec: 09/09/19 17:24 LRN [id number]) Lumbar Spine Range of Motion Lumbar Spine Active Degrees Testing Position Standing Flexion 70 Extension 20 Lateral Flexion Left 10 Lateral Flexion Right 15 ROM Limitations Soft Tissue Tightness Comments Active rotation is ~20 deg's bilaterally. Rotation R is normal spinal movement. Rotation L has a pivot at L2. Hip Goniometric Range of Motion Hip Right Passive Testing Position Supine Straight Leg Raise 65 Internal Rotation 45 External Rotation 35 Left Passive Testing Position Supine Straight Leg Raise 60 Internal Rotation 25 External Rotation 20 Hip ROM Limitations Hip ROM Limitations Soft Tissue Tightness,Pain Comments Bilateral Hip ext: lacks ~10 deg's as assessed during James test. PT-OP-L Special Tests Start: 09/08/19 17:39 Freq: Status: Active Protocol: Document 09/09/19 08:18 LRN (Rec: 09/09/19 17:24 LRN [id number]) Special Tests Lumbar Spine Special Tests Straight Leg Raise Test Results Borderline right, negative left Comments 60 degs right with ASIS pain, 65 deg's left with HS tightness Hip Special Tests James Test Results postive bilaterally Comments Tight Iliopsoas bilaterally PT-OP-M Strength Start: 09/08/19 17:39 Freq: Status: Active Protocol: Document 09/09/19 08:18 LRN (Rec: 09/09/19 17:24 LRN [id number]) Trunk Strength Trunk Manual Muscle Testing Testing Position Supine Flexion 5 Normal Hip Strength Hip Manual Muscle Testing Right Flexion (L2) 4+ Good+ Adduction 3+ Fair+ Comments Generally 5/5 except as indicated above. Left Comments Generally 5/5 except as indicated above. PT-OP-Q Treatments Start: 09/08/19 17:39 Freq: Status: Active Protocol: Document 09/26/19 09:08 LRN (Rec: 09/26/19 09:47 LRN [id number]) Therapeutic Exercises Supine Exercises Hands/knees push Supine Exercise Name Hands/knees push - awareness training for TA Reps/Minutes 2' Comments V. & phys cuing for proper positioning for ex TA tightening Supine Exercise Name TA tightening Reps/Minutes Holding 10 x 10 Comments Awareness training w/breathing , coughing, leg moving Hip flexor stretch Supine Exercise Name James test position with ext of straight leg, followed by active stretch Side bilateral Reps/Minutes 60 plus active stretch x 10 Comments Extra time to modify stretch position as he would at home on soft bed. Prone Exercises Quad stretch Prone Exercise Name Passive Quad stretch f/b active stretch Side bilateral Equipment Used Gait Belt Reps/Minutes 5' Comments Training needed to get proper stretch position Other Exercises Cat/Camel Other Exercise Name Cat/Camel Reps/Minutes 5 hold x 10 Self-Care/Home Management Treatment Education Patient Education Home Exercise Program Other Education Issued & reviewed HEP: Cat/ Camel (to neutral only) stretch, and prone Quad stretch. PT-OP-R Modalities Start: 09/08/19 17:39 Freq: Status: Active Protocol: Document 09/26/19 09:08 LRN (Rec: 09/26/19 09:47 LRN [id number]) Electric Stimulation Electric Stimulation Interferential Current (IFC) Body Location Pads: midback>Low back paraspinals Duration (Minutes) 15 Intensity 11 Target/Sweep Sweep Patient Position Hooklying Combined With Heat/Cold Hot Pack Comments Hot pack to back with bolster Hot Pack/Cold Pack Treatment Hot Pack Location Back>LB Patient Position Hooklying Treatment Duration (minutes) 15 Comments Bolster under legs PT-OP-T Assessment and Plan Start: 09/08/19 17:39 Freq: Status: Active Protocol: Document 09/26/19 09:08 LRN (Rec: 09/26/19 09:47 LRN [id number]) Physical Therapy Assessment Goals Four Impairment Pain with traveling/work activities due to poor body awareness & core stab. Short Term Goal (STG) Pt will be educated in proper sitting posture, proper body mechanics for sitting, lifting , reaching, and throwing activities for painfree mobility. STG Duration 10/17/19 Correction Goal (LTG) Improve core stability with pt able to maintain transverse abdominus contraction during above stated functional activities. LTG Duration 11/11/19 Three Impairment Low back pain with sit to stand transfers after prolonged sitting Short Term Goal (STG) Pt will demonstrate improved sitting posture and postural awareness with ability to sit 30 minutes without onset of pain transferring to standing. STG Duration 10/14/19 Correction Goal (LTG) Improve posture in standing with lessening of C-curve ( apex on L) and pt able to exercise and perform work duties with awareness of proper body mechanics and posture. LTG Duration 11/11/19 Two Impairment Decreased hip mobility (Ext lacks 10 lokesh, ER 20 L, 35 R, IR 25 L, 45 R) Short Term Goal (STG) Pt will be educated in a self care hip flexibility home program of hip stretches. STG Duration 09/23/19 Field Auditor Goal (LTG) Improve hip mobility for movement painfree in the anterior hip and low back (hip Ext 8 deg's, ER 40 deg's, IR 45 deg's bilaterally) LTG Duration 11/11/19 One Impairment Pt lacks appropriate self care HEP. Correction Goal (LTG) Pt will be independent and safe with a self care HEP to prevent onset of back pain. LTG Duration 11/11/19 (: Progressing) Progress Towards Goals Progress Towards Goals Progressing Toward Goals Progress Comments Back Pain is 0/10 after treatment. Assessment Summary Assessment + response to E-Stim since last visit with a reduction in pain. Pt demonstrates improved awareness of posture by including TA contraction in standing and with exercise. He has been able to control pain onset by incorporating improved body mechanics during activities and abdominal braciing. He has tight hip flexors affecting his back pain. Physical Therapy Plan Frequency and Duration Frequency of Treatment 2x/Week Plan of Care Start Date 09/09/19 Plan of Care End Date 11/11/19 Next Visit Focus/Plan Next Note Type Progress Note Next Visit Plan Improve postural awareness ( educate in wall stand activity ), Educate pt in proper sitting ( chair/plane/sofa), standing posture, Assess trunk strength, Initiate back strengthening and postural training during general conditioning. JMT to lower thoracic and lumbar spine and ex to correct for C-Curve, Progress onto HEP of hip and low back stretches, & core strengthening, End modalities of E-Stim to the back or ice to anterior hips/LB
--- NOTE | 2019-10-04 09:19 | PT.OTN ---
Current Diagnoses Dorsalgia, unspecified (10/04/19) Other muscle spasm (10/04/19) Abnormal posture (10/04/19) Physical Therapy Treatment Note PT-OP-A Visit Information Start: 09/08/19 17:39 Freq: Status: Active Protocol: Document 10/04/19 08:17 LRN (Rec: 10/04/19 09:14 LRN [id number]) Out-Patient Physical Therapy Visit Information Visit Information Visit Type Treatment Note Visit Start Time 08:17 Visit Stop Time 09:06 Total Visit Minutes 49 Visit Number 5 Evaluation Information Evaluation Date 09/09/19 Precautions Precautions Per history review: Plantar fasciitis, essential HTN, L4- L5 surgery thought to be a fusion. 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 9 yr old daughter and 11 yr old son. PT-OP-C Subjective Start: 09/08/19 17:39 Freq: Status: Active Protocol: Document 10/04/19 08:17 LRN (Rec: 10/04/19 09:14 LRN [id number]) OP-PT Subjective Patient Comments Patient Comments This morning turned to feed dog medicine and got pain in the mid back. Today having cramping across the back ~T7- T12 level. Has new shoes and lower legs are sore. No pain in hips or lower back, was able to pull a boat onto the embankment and put it into trunk without any back pain 2 days ago. Pt states he can sit 30 minutes without pain and work and do activities without pain. PT-OP-G Mobility & Gait Start: 09/08/19 17:39 Freq: Status: Active Protocol: Document 09/09/19 08:18 LRN (Rec: 09/09/19 17:24 LRN [id number]) OP Mobility Evaluation Bed Mobility Rolling Independent Supine to and from Sit Independent Transfers Sit to Stand With difficulty leaning to L side and holds his L low back. PT-OP-J Posture/Palpation/Skin Start: 07/16/20 17:39 Freq: Status: Active Protocol: Document 09/09/19 08:18 LRN (Rec: 09/09/19 17:24 LRN [id number]) Posture Evaluation Comments Posture Comments Standing the pt has a C-curve of his back with the apex on the left at ~T6. His R Iliac crest is high. Palpation Assessment Location L lower T/S Palpation Location T6-T8 Palpation Findings Soft Tissue Tightness,Muscle Guarding,Tenderness L Lumbar paraspinals Palpation Location L lumbar paraspinals Palpation Findings Soft Tissue Tightness,Muscle Guarding,Tenderness PT-OP-K Range of Motion Start: 09/08/19 17:39 Freq: Status: Active Protocol: Document 09/09/19 08:18 LRN (Rec: 09/09/19 17:24 LRN [id number]) Lumbar Spine Range of Motion Lumbar Spine Active Degrees Testing Position Standing Flexion 70 Extension 20 Lateral Flexion Left 10 Lateral Flexion Right 15 ROM Limitations Soft Tissue Tightness Comments Active rotation is ~20 deg's bilaterally. Rotation R is normal spinal movement. Rotation L has a pivot at L2. Hip Goniometric Range of Motion Hip Right Passive Testing Position Supine Straight Leg Raise 65 Internal Rotation 45 External Rotation 35 Left Passive Testing Position Supine Straight Leg Raise 60 Internal Rotation 25 External Rotation 20 Hip ROM Limitations Hip ROM Limitations Soft Tissue Tightness,Pain Comments Bilateral Hip ext: lacks ~10 deg's as assessed during James test. PT-OP-L Special Tests Start: 09/08/19 17:39 Freq: Status: Active Protocol: Document 09/09/19 08:18 LRN (Rec: 09/09/19 17:24 LRN [id number]) Special Tests Lumbar Spine Special Tests Straight Leg Raise Test Results Borderline right, negative left Comments 60 degs right with ASIS pain, 65 deg's left with HS tightness Hip Special Tests James Test Results postive bilaterally Comments Tight Iliopsoas bilaterally PT-OP-M Strength Start: 09/08/19 17:39 Freq: Status: Active Protocol: Document 09/09/19 08:18 LRN (Rec: 09/09/19 17:24 LRN [id number]) Trunk Strength Trunk Manual Muscle Testing Testing Position Supine Flexion 5 Normal Hip Strength Hip Manual Muscle Testing Right Flexion (L2) 4+ Good+ Adduction 3+ Fair+ Comments Generally 5/5 except as indicated above. Left Comments Generally 5/5 except as indicated above. PT-OP-Q Treatments Start: 09/08/19 17:39 Freq: Status: Active Protocol: Document 10/04/19 08:17 LRN (Rec: 10/04/19 09:14 LRN [id number]) Cardio Equipment Treadmill Duration (Minutes) 9 Speed 2.5 Incline 0 Other v. cuing for core stab. Pt good at self monitoring anterior hip symmetry Therapeutic Exercises Standing Exercises C-curve ex Standing Exercise Name R arm lifts & row Side right Reps/Minutes 10 hold x 10 Stretch into ankle DF Standing Exercise Name Ankle DF stretch, followed by active stretch on ELÍAS Side bilateral Equipment Used ELÍAS Reps/Minutes 2' Comments Active stretch = active lien ankle DF Other Exercises Trunk rot stretch Other Exercise Name Thread the needle reaching left hand to right Side bilateral Reps/Minutes 10 hold Child pose Other Exercise Name Child pose for R>L paraspinal stretch Side bilateral Reps/Minutes 10 hold, 3' Self-Care/Home Management Treatment Education Patient Education Home Exercise Program Activities Self-Care/Home Management Activities Issue & reviewed HEP: Child's pose w/stretch to L paraspinals; Thread the Needle stretch to upper trunk R rot; standing R arm lifts. PT-OP-R Modalities Start: 09/08/19 17:39 Freq: Status: Active Protocol: Document 10/04/19 08:17 LRN (Rec: 10/04/19 09:14 LRN [id number]) Electric Stimulation Electric Stimulation Interferential Current (IFC) Body Location Pads: midback>Low back paraspinals Duration (Minutes) 16 Intensity 11 Target/Sweep Sweep Patient Position Hooklying Combined With Heat/Cold Hot Pack Comments Hot pack to back with bolster Hot Pack/Cold Pack Treatment Hot Pack Location Back>LB Patient Position Hooklying Treatment Duration (minutes) 15 Comments Bolster under legs PT-OP-T Assessment and Plan Start: 09/08/19 17:39 Freq: Status: Active Protocol: Document 10/04/19 08:17 LRN (Rec: 10/04/19 09:14 LRN [id number]) Physical Therapy Assessment Goals Four Impairment Pain with traveling/work activities due to poor body awareness & core stab. Short Term Goal (STG) Pt will be educated in proper sitting posture, proper body mechanics for sitting, lifting , reaching, and throwing activities for painfree mobility. STG Duration 10/17/19 Regional Director Of Finance Goal (LTG) Improve core stability with pt able to maintain transverse abdominus contraction during above stated functional activities. LTG Duration 11/11/19 Three Impairment Low back pain with sit to stand transfers after prolonged sitting Short Term Goal (STG) Pt will demonstrate improved sitting posture and postural awareness with ability to sit 30 minutes without onset of pain transferring to standing. STG Duration 10/14/19 (10/04/19: MET GOAL) Regional Director Of Finance Goal (LTG) Improve posture in standing with lessening of C-curve ( apex on L) and pt able to exercise and perform work duties with awareness of proper body mechanics and posture. LTG Duration 11/11/19 (10/04/19: progressing , awareness with work duties, not home moves) Two Impairment Decreased hip mobility (Ext lacks 10 lokesh, ER 20 L, 35 R, IR 25 L, 45 R) Short Term Goal (STG) Pt will be educated in a self care hip flexibility home program of hip stretches. (09/30/19: HEP issued for hip flexors) STG Duration 09/23/19 (09/30/19: Progressing) Regional Director Of Finance Goal (LTG) Improve hip mobility for movement painfree in the anterior hip and low back (hip Ext 8 deg's, ER 40 deg's, IR 45 deg's bilaterally) LTG Duration 11/11/19 One Impairment Pt lacks appropriate self care HEP. Regional Director Of Finance Goal (LTG) Pt will be independent and safe with a self care HEP to prevent onset of back pain. LTG Duration 11/11/19 (10/04/19: Progressing) Progress Towards Goals Progress Comments Pt having no pain with sittng. Assessment Summary Assessment Pt low back and anterior hip pain is mostly resolved. Pain has moved to mid back probably due to lack of trunk stabilization. Physical Therapy Plan Frequency and Duration Frequency of Treatment 2x/Week Plan of Care Start Date 09/09/19 Plan of Care End Date 11/11/19 Next Visit Focus/Plan Next Note Type Treatment Note Next Visit Plan Educate in wall stand activity , Educate pt in proper sitting ( chair/plane/sofa), standing posture, Add hip ER/IR stretches to HEP , Assess trunk strength, Initiate back strengthening JMT to lower thoracic and lumbar spine and ex to correct for C-Curve, Progress onto HEP of low back stretches, & core strengthening, Modalities of E-Stim to the back or ice to anterior hips/ LB as needed.
--- NOTE | 2019-10-04 18:27 | PT.OTN ---
Current Diagnoses Dorsalgia, unspecified (10/04/19) Other muscle spasm (10/04/19) Abnormal posture (10/04/19) Physical Therapy Treatment Note PT-OP-A Visit Information Start: 09/08/19 17:39 Freq: Status: Active Protocol: Document 10/04/19 08:17 LRN (Rec: 10/04/19 09:14 LRN [id number]) Out-Patient Physical Therapy Visit Information Visit Information Visit Type Treatment Note Visit Start Time 08:17 Visit Stop Time 09:06 Total Visit Minutes 49 Visit Number 5 Evaluation Information Evaluation Date 09/09/19 Precautions Precautions Per history review: Plantar fasciitis, essential HTN, L4- L5 surgery thought to be a fusion. 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 9 yr old daughter and 11 yr old son. PT-OP-C Subjective Start: 09/08/19 17:39 Freq: Status: Active Protocol: Document 10/04/19 08:17 LRN (Rec: 10/04/19 09:14 LRN [id number]) OP-PT Subjective Patient Comments Patient Comments This morning turned to feed dog medicine and got pain in the mid back. Today having cramping across the back ~T7- T12 level. Has new shoes and lower legs are sore. No pain in hips or lower back, was able to pull a boat onto the embankment and put it into trunk without any back pain 2 days ago. Pt states he can sit 30 minutes without pain and work and do activities without pain. PT-OP-G Mobility & Gait Start: 09/08/19 17:39 Freq: Status: Active Protocol: Document 09/09/19 08:18 LRN (Rec: 09/09/19 17:24 LRN [id number]) OP Mobility Evaluation Bed Mobility Rolling Independent Supine to and from Sit Independent Transfers Sit to Stand With difficulty leaning to L side and holds his L low back. PT-OP-J Posture/Palpation/Skin Start: 07/16/20 17:39 Freq: Status: Active Protocol: Document 09/09/19 08:18 LRN (Rec: 09/09/19 17:24 LRN [id number]) Posture Evaluation Comments Posture Comments Standing the pt has a C-curve of his back with the apex on the left at ~T6. His R Iliac crest is high. Palpation Assessment Location L lower T/S Palpation Location T6-T8 Palpation Findings Soft Tissue Tightness,Muscle Guarding,Tenderness L Lumbar paraspinals Palpation Location L lumbar paraspinals Palpation Findings Soft Tissue Tightness,Muscle Guarding,Tenderness PT-OP-K Range of Motion Start: 09/08/19 17:39 Freq: Status: Active Protocol: Document 09/09/19 08:18 LRN (Rec: 09/09/19 17:24 LRN [id number]) Lumbar Spine Range of Motion Lumbar Spine Active Degrees Testing Position Standing Flexion 70 Extension 20 Lateral Flexion Left 10 Lateral Flexion Right 15 ROM Limitations Soft Tissue Tightness Comments Active rotation is ~20 deg's bilaterally. Rotation R is normal spinal movement. Rotation L has a pivot at L2. Hip Goniometric Range of Motion Hip Right Passive Testing Position Supine Straight Leg Raise 65 Internal Rotation 45 External Rotation 35 Left Passive Testing Position Supine Straight Leg Raise 60 Internal Rotation 25 External Rotation 20 Hip ROM Limitations Hip ROM Limitations Soft Tissue Tightness,Pain Comments Bilateral Hip ext: lacks ~10 deg's as assessed during James test. PT-OP-L Special Tests Start: 09/08/19 17:39 Freq: Status: Active Protocol: Document 09/09/19 08:18 LRN (Rec: 09/09/19 17:24 LRN [id number]) Special Tests Lumbar Spine Special Tests Straight Leg Raise Test Results Borderline right, negative left Comments 60 degs right with ASIS pain, 65 deg's left with HS tightness Hip Special Tests James Test Results postive bilaterally Comments Tight Iliopsoas bilaterally PT-OP-M Strength Start: 09/08/19 17:39 Freq: Status: Active Protocol: Document 09/09/19 08:18 LRN (Rec: 09/09/19 17:24 LRN [id number]) Trunk Strength Trunk Manual Muscle Testing Testing Position Supine Flexion 5 Normal Hip Strength Hip Manual Muscle Testing Right Flexion (L2) 4+ Good+ Adduction 3+ Fair+ Comments Generally 5/5 except as indicated above. Left Comments Generally 5/5 except as indicated above. PT-OP-Q Treatments Start: 09/08/19 17:39 Freq: Status: Active Protocol: Document 10/04/19 08:17 LRN (Rec: 10/04/19 09:14 LRN [id number]) Cardio Equipment Treadmill Duration (Minutes) 9 Speed 2.5 Incline 0 Other v. cuing for core stab. Pt good at self monitoring anterior hip symmetry Therapeutic Exercises Standing Exercises C-curve ex Standing Exercise Name R arm lifts & row Side right Reps/Minutes 10 hold x 10 Stretch into ankle DF Standing Exercise Name Ankle DF stretch, followed by active stretch on ELÍAS Side bilateral Equipment Used ELÍAS Reps/Minutes 2' Comments Active stretch = active lien ankle DF Other Exercises Trunk rot stretch Other Exercise Name Thread the needle reaching left hand to right Side bilateral Reps/Minutes 10 hold Child pose Other Exercise Name Child pose for R>L paraspinal stretch Side bilateral Reps/Minutes 10 hold, 3' Self-Care/Home Management Treatment Education Patient Education Home Exercise Program Activities Self-Care/Home Management Activities Issue & reviewed HEP: Child's pose w/stretch to L paraspinals; Thread the Needle stretch to upper trunk R rot; standing R arm lifts. PT-OP-R Modalities Start: 09/08/19 17:39 Freq: Status: Active Protocol: Document 10/04/19 08:17 LRN (Rec: 10/04/19 09:14 LRN [id number]) Electric Stimulation Electric Stimulation Interferential Current (IFC) Body Location Pads: midback>Low back paraspinals Duration (Minutes) 16 Intensity 11 Target/Sweep Sweep Patient Position Hooklying Combined With Heat/Cold Hot Pack Comments Hot pack to back with bolster Hot Pack/Cold Pack Treatment Hot Pack Location Back>LB Patient Position Hooklying Treatment Duration (minutes) 15 Comments Bolster under legs PT-OP-T Assessment and Plan Start: 09/08/19 17:39 Freq: Status: Active Protocol: Document 10/04/19 08:17 LRN (Rec: 10/04/19 09:14 LRN [id number]) Physical Therapy Assessment Goals Four Impairment Pain with traveling/work activities due to poor body awareness & core stab. Short Term Goal (STG) Pt will be educated in proper sitting posture, proper body mechanics for sitting, lifting , reaching, and throwing activities for painfree mobility. STG Duration 10/17/19 [employer] Attendant Goal (LTG) Improve core stability with pt able to maintain transverse abdominus contraction during above stated functional activities. LTG Duration 11/11/19 Three Impairment Low back pain with sit to stand transfers after prolonged sitting Short Term Goal (STG) Pt will demonstrate improved sitting posture and postural awareness with ability to sit 30 minutes without onset of pain transferring to standing. STG Duration 10/14/19 (10/04/19: MET GOAL) [employer] Att[employer] Goal (LTG) Improve posture in standing with lessening of C-curve ( apex on L) and pt able to exercise and perform work duties with awareness of proper body mechanics and posture. LTG Duration 11/11/19 (10/04/19: progressing , awareness with work duties, not home moves) Two Impairment Decreased hip mobility (Ext lacks 10 lokesh, ER 20 L, 35 R, IR 25 L, 45 R) Short Term Goal (STG) Pt will be educated in a self care hip flexibility home program of hip stretches. (09/30/19: HEP issued for hip flexors) STG Duration 09/23/19 (09/30/19: Progressing) [employer] Attendant Goal (LTG) Improve hip mobility for movement painfree in the anterior hip and low back (hip Ext 8 deg's, ER 40 deg's, IR 45 deg's bilaterally) LTG Duration 11/11/19 One Impairment Pt lacks appropriate self care HEP. [employer] Attendant Goal (LTG) Pt will be independent and safe with a self care HEP to prevent onset of back pain. LTG Duration 11/11/19 (10/04/19: Progressing) Progress Towards Goals Progress Comments Pt having no pain with sittng. Assessment Summary Assessment Pt low back and anterior hip pain is mostly resolved. Pain has moved to mid back probably due to lack of trunk stabilization. Pt notes anterior hip pain without TA contraction and core stabilized; therefore trunk strengthening needed. Physical Therapy Plan Frequency and Duration Frequency of Treatment 2x/Week Plan of Care Start Date 09/09/19 Plan of Care End Date 11/11/19 Next Visit Focus/Plan Next Note Type Treatment Note Next Visit Plan Educate in wall stand activity , Educate pt in proper sitting ( chair/plane/sofa), standing posture, Add hip ER/IR stretches to HEP , Assess trunk strength, Initiate back strengthening JMT to lower thoracic and lumbar spine and ex to correct for C-Curve, Progress onto HEP of low back stretches, & core strengthening, Modalities of E-Stim to the back or ice to anterior hips/ LB as needed.
--- NOTE | 2019-10-07 16:59 | PT.OTN ---
Current Diagnoses Dorsalgia, unspecified (10/07/19) Other muscle spasm (10/07/19) Abnormal posture (10/07/19) Physical Therapy Treatment Note PT-OP-A Visit Information Start: 09/08/19 17:39 Freq: Status: Active Protocol: Document 10/07/19 09:54 LRN (Rec: 10/07/19 10:35 LRN [id number]) Out-Patient Physical Therapy Visit Information Visit Information Visit Type Treatment Note Visit Start Time 09:54 Visit Stop Time 10:35 Total Visit Minutes 41 Visit Number 6 Evaluation Information Evaluation Date 09/09/19 Precautions Precautions Per history review: Plantar fasciitis, essential HTN, L4- L5 surgery thought to be a fusion. 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 9 yr old daughter and 11 yr old son. PT-OP-C Subjective Start: 09/08/19 17:39 Freq: Status: Active Protocol: Document 10/07/19 09:54 LRN (Rec: 10/07/19 10:35 LRN [id number]) OP-PT Subjective Patient Comments Patient Comments Tues did long walk (1.5hrs) without pain. Wed morning caught foot cleaning bird cage and strained the L groin, pain dissaptated 1 hr later. Doing ex's helps the back. No Tylenol PT-OP-G Mobility & Gait Start: 09/08/19 17:39 Freq: Status: Active Protocol: Document 09/09/19 08:18 LRN (Rec: 09/09/19 17:24 LRN [id number]) OP Mobility Evaluation Bed Mobility Rolling Independent Supine to and from Sit Independent Transfers Sit to Stand With difficulty leaning to L side and holds his L low back. PT-OP-J Posture/Palpation/Skin Start: 09/08/19 17:39 Freq: Status: Active Protocol: Document 09/09/19 08:18 LRN (Rec: 09/09/19 17:24 LRN [id number]) Posture Evaluation Comments Posture Comments Standing the pt has a C-curve of his back with the apex on the left at ~T6. His R Iliac crest is high. Palpation Assessment Location L lower T/S Palpation Location T6-T8 Palpation Findings Soft Tissue Tightness,Muscle Guarding,Tenderness L Lumbar paraspinals Palpation Location L lumbar paraspinals Palpation Findings Soft Tissue Tightness,Muscle Guarding,Tenderness PT-OP-K Range of Motion Start: 09/08/19 17:39 Freq: Status: Active Protocol: Document 09/09/19 08:18 LRN (Rec: 09/09/19 17:24 LRN [id number]) Lumbar Spine Range of Motion Lumbar Spine Active Degrees Testing Position Standing Flexion 70 Extension 20 Lateral Flexion Left 10 Lateral Flexion Right 15 ROM Limitations Soft Tissue Tightness Comments Active rotation is ~20 deg's bilaterally. Rotation R is normal spinal movement. Rotation L has a pivot at L2. Hip Goniometric Range of Motion Hip Right Passive Testing Position Supine Straight Leg Raise 65 Internal Rotation 45 External Rotation 35 Left Passive Testing Position Supine Straight Leg Raise 60 Internal Rotation 25 External Rotation 20 Hip ROM Limitations Hip ROM Limitations Soft Tissue Tightness,Pain Comments Bilateral Hip ext: lacks ~10 deg's as assessed during James test. PT-OP-L Special Tests Start: 09/08/19 17:39 Freq: Status: Active Protocol: Document 09/09/19 08:18 LRN (Rec: 09/09/19 17:24 LRN [id number]) Special Tests Lumbar Spine Special Tests Straight Leg Raise Test Results Borderline right, negative left Comments 60 degs right with ASIS pain, 65 deg's left with HS tightness Hip Special Tests James Test Results postive bilaterally Comments Tight Iliopsoas bilaterally PT-OP-M Strength Start: 09/08/19 17:39 Freq: Status: Active Protocol: Document 09/09/19 08:18 LRN (Rec: 09/09/19 17:24 LRN [id number]) Trunk Strength Trunk Manual Muscle Testing Testing Position Supine Flexion 5 Normal Hip Strength Hip Manual Muscle Testing Right Flexion (L2) 4+ Good+ Adduction 3+ Fair+ Comments Generally 5/5 except as indicated above. Left Comments Generally 5/5 except as indicated above. PT-OP-Q Treatments Start: 09/08/19 17:39 Freq: Status: Active Protocol: Document 08/14/20 09:54 LRN (Rec: 08/14/20 10:35 LRN [id number]) Cardio Equipment Treadmill Duration (Minutes) 6 Speed 3 Incline 0 Other Pt required v. cuing for core stab to start. Therapeutic Exercises Supine Exercises Piriformis stretch Supine Exercise Name Knee to opposite shoulder and Cross legged KTC Side bilateral Comments Phys & v cuing needed to get proper stretch Lateral Hip stretch Supine Exercise Name Lateral Hip Stretch, immediately f/b active hip IR Side bilateral Reps/Minutes 5' Comments phys cuing needed to get proper stretch Fig 4 stretch Supine Exercise Name Fig 4 stretch immediately f/b active stretch Side bilateral Reps/Minutes 6' Comments Determined max stretch tolerated, used pillow roll under thigh for support Other Exercises Trunk rot stretch Other Exercise Name Thread the needle reaching left hand to right Side bilateral Reps/Minutes 4' Comments Rotated both directions Child pose Other Exercise Name Child pose for R>L paraspinal stretch Side bilateral Reps/Minutes 3' Cat/Camel Other Exercise Name Cat and Angry Cat stretch Side right Reps/Minutes 3' Self-Care/Home Management Treatment Education Patient Education Home Exercise Program Activities Self-Care/Home Management Activities Issued & reviewed HEP: Hip ER (fig 4) and Piriformis (2 stretches) and lateral hip stretch. PT-OP-R Modalities Start: 09/08/19 17:39 Freq: Status: Active Protocol: Document 10/04/19 08:17 LRN (Rec: 10/04/19 09:14 LRN [id number]) Electric Stimulation Electric Stimulation Interferential Current (IFC) Body Location Pads: midback>Low back paraspinals Duration (Minutes) 16 Intensity 11 Target/Sweep Sweep Patient Position Hooklying Combined With Heat/Cold Hot Pack Comments Hot pack to back with bolster Hot Pack/Cold Pack Treatment Hot Pack Location Back>LB Patient Position Hooklying Treatment Duration (minutes) 15 Comments Bolster under legs PT-OP-T Assessment and Plan Start: 09/08/19 17:39 Freq: Status: Active Protocol: Document 10/07/19 09:54 LRN (Rec: 10/07/19 10:35 LRN [id number]) Physical Therapy Assessment Goals Four Impairment Pain with traveling/work activities due to poor body awareness & core stab. Short Term Goal (STG) Pt will be educated in proper sitting posture, proper body mechanics for sitting, lifting , reaching, and throwing activities for painfree mobility. STG Duration 10/17/19 Intermediate Goal (LTG) Improve core stability with pt able to maintain transverse abdominus contraction during above stated functional activities. LTG Duration 11/11/19 Three Impairment Low back pain with sit to stand transfers after prolonged sitting Short Term Goal (STG) Pt will demonstrate improved sitting posture and postural awareness with ability to sit 30 minutes without onset of pain transferring to standing. STG Duration 10/14/19 (10/04/19: MET GOAL) Intermediate Goal (LTG) Improve posture in standing with lessening of C-curve ( apex on L) and pt able to exercise and perform work duties with awareness of proper body mechanics and posture. LTG Duration 11/11/19 (10/04/19: progressing , awareness with work duties, not home moves) Two Impairment Decreased hip mobility (Ext lacks 10 lokesh, ER 20 L, 35 R, IR 25 L, 45 R) Short Term Goal (STG) Pt will be educated in a self care hip flexibility home program of hip stretches. (09/30/19: HEP issued for hip flexors, 10/07/19: HEP issued for hip rotators) STG Duration 09/23/19 (10/07/19: Progressing ) [employer] Goal (LTG) Improve hip mobility for movement painfree in the anterior hip and low back (hip Ext 8 deg's, ER 40 deg's, IR 45 deg's bilaterally) LTG Duration 11/11/19 One Impairment Pt lacks appropriate self care HEP. Intermediate Goal (LTG) Pt will be independent and safe with a self care HEP to prevent onset of back pain. LTG Duration 11/11/19 (10/04/19: Progressing) Progress Towards Goals Progress Comments Pt appears to have had a L groin strain that has hindered his ability to ex at home the past few days; therefore progress is slow with no significant improvement today. He has been progressed in his home program to improve hip mobility today. Assessment Summary Assessment Pt is very tight with his L hip rotators today, probably due to his recent groin strain report. He appears to have a good understanding of his current back stretches and is consistent with his HEP as demonstrated by his excellent knowledge of his exercises. Physical Therapy Plan Frequency and Duration Frequency of Treatment 2x/Week Plan of Care Start Date 09/09/19 Plan of Care End Date 11/11/19 Next Visit Focus/Plan Next Note Type Treatment Note Next Visit Plan Educate in wall stand activity , Educate pt in proper sitting ( chair/plane/sofa), standing posture, Add hip AD & hamstring/LE neural stretches to HEP, Assess trunk strength, Initiate back strengthening JMT to lower thoracic and lumbar spine and ex to correct for C-Curve, Progress onto HEP of low back stretches, & core strengthening, Modalities of E-Stim to the back or ice to anterior hips/ LB as needed.
--- NOTE | 2019-10-11 10:22 | PT.OTN ---
Current Diagnoses Dorsalgia, unspecified (10/11/19) Other muscle spasm (10/11/19) Abnormal posture (10/11/19) Physical Therapy Treatment Note PT-OP-A Visit Information Start: 09/08/19 17:39 Freq: Status: Active Protocol: Document 10/11/19 09:01 LRN (Rec: 10/11/19 09:54 LRN [id number]) Out-Patient Physical Therapy Visit Information Visit Information Visit Type Treatment Note Visit Start Time 09:01 Visit Stop Time 09:49 Total Visit Minutes 48 Visit Number 7 Evaluation Information Evaluation Date 09/09/19 Precautions Precautions Per history review: Plantar fasciitis, essential HTN, L4- L5 surgery thought to be a fusion. 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 9 yr old daughter and 11 yr old son. 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 New hip stretches he noticed L side ( showing fig 4 stretch) is more uncomfortable than R side. States most of the time he automatically tightens his TA with activities. PT-OP-G Mobility & Gait Start: 09/08/19 17:39 Freq: Status: Active Protocol: Document 09/09/19 08:18 LRN (Rec: 09/09/19 17:24 LRN [id number]) OP Mobility Evaluation Bed Mobility Rolling Independent Supine to and from Sit Independent Transfers Sit to Stand With difficulty leaning to L side and holds his L low back. PT-OP-J Posture/Palpation/Skin Start: 09/08/19 17:39 Freq: Status: Active Protocol: Document 09/09/19 08:18 LRN (Rec: 09/09/19 17:24 LRN [id number]) Posture Evaluation Comments Posture Comments Standing the pt has a C-curve of his back with the apex on the left at ~T6. His R Iliac crest is high. Palpation Assessment Location L lower T/S Palpation Location T6-T8 Palpation Findings Soft Tissue Tightness,Muscle Guarding,Tenderness L Lumbar paraspinals Palpation Location L lumbar paraspinals Palpation Findings Soft Tissue Tightness,Muscle Guarding,Tenderness PT-OP-K Range of Motion Start: 09/08/19 17:39 Freq: Status: Active Protocol: Document 09/09/19 08:18 LRN (Rec: 09/09/19 17:24 LRN [id number]) Lumbar Spine Range of Motion Lumbar Spine Active Degrees Testing Position Standing Flexion 70 Extension 20 Lateral Flexion Left 10 Lateral Flexion Right 15 ROM Limitations Soft Tissue Tightness Comments Active rotation is ~20 deg's bilaterally. Rotation R is normal spinal movement. Rotation L has a pivot at L2. Hip Goniometric Range of Motion Hip Right Passive Testing Position Supine Straight Leg Raise 65 Internal Rotation 45 External Rotation 35 Left Passive Testing Position Supine Straight Leg Raise 60 Internal Rotation 25 External Rotation 20 Hip ROM Limitations Hip ROM Limitations Soft Tissue Tightness,Pain Comments Bilateral Hip ext: lacks ~10 deg's as assessed during James test. PT-OP-L Special Tests Start: 09/08/19 17:39 Freq: Status: Active Protocol: Document 09/09/19 08:18 LRN (Rec: 09/09/19 17:24 LRN [id number]) Special Tests Lumbar Spine Special Tests Straight Leg Raise Test Results Borderline right, negative left Comments 60 degs right with ASIS pain, 65 deg's left with HS tightness Hip Special Tests James Test Results postive bilaterally Comments Tight Iliopsoas bilaterally PT-OP-M Strength Start: 09/08/19 17:39 Freq: Status: Active Protocol: Document 09/09/19 08:18 LRN (Rec: 09/09/19 17:24 LRN [id number]) Trunk Strength Trunk Manual Muscle Testing Testing Position Supine Flexion 5 Normal Hip Strength Hip Manual Muscle Testing Right Flexion (L2) 4+ Good+ Adduction 3+ Fair+ Comments Generally 5/5 except as indicated above. Left Comments Generally 5/5 except as indicated above. PT-OP-Q Treatments Start: 09/08/19 17:39 Freq: Status: Active Protocol: Document 10/11/19 09:01 LRN (Rec: 10/11/19 09:54 LRN [id number]) Cardio Equipment Treadmill Duration (Minutes) 8 Speed 3 Incline 0 Other Pt needed cuing for proper speed to be able to manage posture/TA. Therapeutic Exercises Supine Exercises Hamstring/LE neural stretch Supine Exercise Name Hamstring/LE neural stretch Reps/Minutes 4' Comments Pt needed constant cuing for positioning and to work within painfree limits Piriformis stretch Supine Exercise Name Knee to opposite shoulder and Cross legged KTC Side bilateral Reps/Minutes 4' Comments Phys & v cuing needed to get proper stretch Lateral Hip stretch Supine Exercise Name Lateral Hip Stretch, immediately f/b active hip IR Side bilateral Reps/Minutes 5' Comments phys cuing needed to get proper stretch, R>L Fig 4 stretch Supine Exercise Name Fig 4 stretch immediately f/b active stretch Side bilateral Reps/Minutes 3' Comments Determined max stretch tolerated, used pillow roll under thigh for support Hip flexor stretch Supine Exercise Name James test position with ext of straight leg, followed by active stretch Side bilateral Reps/Minutes 60 plus active stretch x 1, f /b active stretch Comments Extra time to modify stretch position as he would at home on soft bed. Standing Exercises C-curve ex Standing Exercise Name R arm lifts, row Self-Care/Home Management Treatment Education Patient Education Home Exercise Program,Posture Other Education Educated pt in proper standing posture using wall standing as guide. Educated pt in proper sitting posture, proper body mechanics for sitting, lifting, reaching. Extra time was spen ton discussion of sitting modifications (triangle lift) appropriate for use in his truck. Further discussion would be necessary. Activities Self-Care/Home Management Activities Issue & reviewed HEP: Hip AD and hamstring/LE neural stretch. PT-OP-R Modalities Start: 09/08/19 17:39 Freq: Status: Active Protocol: Document 10/04/19 08:17 LRN (Rec: 10/04/19 09:14 LRN [id number]) Electric Stimulation Electric Stimulation Interferential Current (IFC) Body Location Pads: midback>Low back paraspinals Duration (Minutes) 16 Intensity 11 Target/Sweep Sweep Patient Position Hooklying Combined With Heat/Cold Hot Pack Comments Hot pack to back with bolster Hot Pack/Cold Pack Treatment Hot Pack Location Back>LB Patient Position Hooklying Treatment Duration (minutes) 15 Comments Bolster under legs PT-OP-T Assessment and Plan Start: 09/08/19 17:39 Freq: Status: Active Protocol: Document 10/11/19 09:01 LRN (Rec: 10/11/19 09:54 LRN [id number]) Physical Therapy Assessment Goals Four Impairment Pain with traveling/work activities due to poor body awareness & core stab. Short Term Goal (STG) Pt will be educated in proper sitting posture, proper body mechanics for sitting, lifting , reaching, and throwing activities for painfree mobility. STG Duration 10/17/19 (10/11/19: MET GOAL) Fpc Goal (LTG) Improve core stability with pt able to maintain transverse abdominus contraction during above stated functional activities. LTG Duration 11/11/19 (10/11/19: MET GOAL) Three Impairment Low back pain with sit to stand transfers after prolonged sitting Short Term Goal (STG) Pt will demonstrate improved sitting posture and postural awareness with ability to sit 30 minutes without onset of pain transferring to standing. STG Duration 10/14/19 (10/04/19: MET GOAL) Fpc Goal (LTG) Improve posture in standing with lessening of C-curve ( apex on L) and pt able to exercise and perform work duties with awareness of proper body mechanics and posture. LTG Duration 11/11/19 (10/04/19: progressing , awareness with work duties, not home moves) Two Impairment Decreased hip mobility (Ext lacks 10 lokesh, ER 20 L, 35 R, IR 25 L, 45 R) Short Term Goal (STG) Pt will be educated in a self care hip flexibility home program of hip stretches. (09/30/19: HEP issued for hip flexors, 10/07/19: HEP issued for hip rotators) STG Duration 09/23/19 (10/11/19: MET GOAL) Fpc Goal (LTG) Improve hip mobility for movement painfree in the anterior hip and low back (hip Ext 8 deg's, ER 40 deg's, IR 45 deg's bilaterally) LTG Duration 11/11/19 One Impairment Pt lacks appropriate self care HEP. Fpc Goal (LTG) Pt will be independent and safe with a self care HEP to prevent onset of back pain. LTG Duration 11/11/19 (10/11/19: Progressing) Progress Towards Goals Progress Comments Goal #4: STG & LTG MET for pt education in proper posturing with different activities and for improved awareness and activation of core stabalizer - transverse abdominus. Assessment Summary Assessment Pt's new shoes help to stablize ankles for improved gait and posture up his body chain. Review and extra time was needed to prevent groin pain during lateral hip stretch. Pt needs ex program for his back to improve posture. Physical Therapy Plan Frequency and Duration Frequency of Treatment 2x/Week Plan of Care Start Date 09/09/19 Plan of Care End Date 11/11/19 Next Visit Focus/Plan Next Note Type Treatment Note Next Visit Plan Review HEP last issued: hip AD & hamstring/LE neural stretches to HEP, Discuss sitting posture on a plane/sofa/review sitting in his truck, Assess back & trunk strength, Initiate back strengthening JMT to lower thoracic and lumbar spine and ex to correct for C-Curve, Progress onto HEP of low back stretches, & core strengthening, Modalities of E-Stim to the back or ice to anterior hips/ LB as needed.
--- NOTE | 2019-10-13 12:47 | PT.OTN ---
Current Diagnoses Dorsalgia, unspecified (10/13/19) Other muscle spasm (10/13/19) Abnormal posture (10/13/19) Physical Therapy Treatment Note PT-OP-A Visit Information Start: 09/08/19 17:39 Freq: Status: Active Protocol: Document 10/13/19 09:04 LRN (Rec: 10/13/19 09:52 LRN [id number]) Out-Patient Physical Therapy Visit Information Visit Information Visit Start Time 09:04 Visit Stop Time 09:52 Total Visit Minutes 48 Visit Number 8 Evaluation Information Evaluation Date 09/09/19 Precautions Precautions Per history review: Plantar fasciitis, essential HTN, L4- L5 surgery thought to be a fusion. 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 9 yr old daughter and 11 yr old son. PT-OP-C Subjective Start: 09/08/19 17:39 Freq: Status: Active Protocol: Document 10/13/19 09:04 LRN (Rec: 10/13/19 09:52 LRN [id number]) OP-PT Subjective Patient Comments Patient Comments States he had to climb a ladder yesterday and later in the day had the anterior hip pain with lateral hip pain on ther R side. He did the stretches and was able to sleep without Tylenol and has no pain today. States he hung from the last rung before climbing off the ladder. PT-OP-G Mobility & Gait Start: 09/08/19 17:39 Freq: Status: Active Protocol: Document 09/09/19 08:18 LRN (Rec: 09/09/19 17:24 LRN [id number]) OP Mobility Evaluation Bed Mobility Rolling Independent Supine to and from Sit Independent Transfers Sit to Stand With difficulty leaning to L side and holds his L low back. PT-OP-J Posture/Palpation/Skin Start: 09/08/19 17:39 Freq: Status: Active Protocol: Document 09/09/19 08:18 LRN (Rec: 09/09/19 17:24 LRN [id number]) Posture Evaluation Comments Posture Comments Standing the pt has a C-curve of his back with the apex on the left at ~T6. His R Iliac crest is high. Palpation Assessment Location L lower T/S Palpation Location T6-T8 Palpation Findings Soft Tissue Tightness,Muscle Guarding,Tenderness L Lumbar paraspinals Palpation Location L lumbar paraspinals Palpation Findings Soft Tissue Tightness,Muscle Guarding,Tenderness PT-OP-K Range of Motion Start: 09/08/19 17:39 Freq: Status: Active Protocol: Document 09/09/19 08:18 LRN (Rec: 09/09/19 17:24 LRN [id number]) Lumbar Spine Range of Motion Lumbar Spine Active Degrees Testing Position Standing Flexion 70 Extension 20 Lateral Flexion Left 10 Lateral Flexion Right 15 ROM Limitations Soft Tissue Tightness Comments Active rotation is ~20 deg's bilaterally. Rotation R is normal spinal movement. Rotation L has a pivot at L2. Hip Goniometric Range of Motion Hip Right Passive Testing Position Supine Straight Leg Raise 65 Internal Rotation 45 External Rotation 35 Left Passive Testing Position Supine Straight Leg Raise 60 Internal Rotation 25 External Rotation 20 Hip ROM Limitations Hip ROM Limitations Soft Tissue Tightness,Pain Comments Bilateral Hip ext: lacks ~10 deg's as assessed during James test. PT-OP-L Special Tests Start: 09/08/19 17:39 Freq: Status: Active Protocol: Document 09/09/19 08:18 LRN (Rec: 09/09/19 17:24 LRN [id number]) Special Tests Lumbar Spine Special Tests Straight Leg Raise Test Results Borderline right, negative left Comments 60 degs right with ASIS pain, 65 deg's left with HS tightness Hip Special Tests James Test Results postive bilaterally Comments Tight Iliopsoas bilaterally PT-OP-M Strength Start: 09/08/19 17:39 Freq: Status: Active Protocol: Document 09/09/19 08:18 LRN (Rec: 09/09/19 17:24 LRN [id number]) Trunk Strength Trunk Manual Muscle Testing Testing Position Supine Flexion 5 Normal Hip Strength Hip Manual Muscle Testing Right Flexion (L2) 4+ Good+ Adduction 3+ Fair+ Comments Generally 5/5 except as indicated above. Left Comments Generally 5/5 except as indicated above. PT-OP-Q Treatments Start: 09/08/19 17:39 Freq: Status: Active Protocol: Document 10/13/19 09:04 LRN (Rec: 10/13/19 09:52 LRN [id number]) Cardio Equipment Treadmill Duration (Minutes) 8 Speed 3.2 Incline 0 Therapeutic Exercises Supine Exercises Hamstring/LE neural stretch Supine Exercise Name Hamstring/LE neural stretch Reps/Minutes 4' Comments Pt needed constant cuing for positioning and to work within painfree limits Hip flexor stretch Supine Exercise Name James test position with ext of straight leg, followed by active stretch Side bilateral Reps/Minutes 60 plus active stretch x 1, f /b active stretch Comments Phys cuing to modify stretch position to prevent falling off table. Standing Exercises C-curve ex Standing Exercise Name L arm lifts, row & upper trunk L sidebend Side left Reps/Minutes 8' Comments Pt needed much phys and v. cuing to perform ex properly. 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 Activities Self-Care/Home Management Activities I/S and issued written directions/reviewed HEP: pt to do standing L arm flex/leg AB lift - 10 hold x 5 and upper trunk L SB stretch to R paraspinals to decreased C- curve of apex on L. PT-OP-R Modalities Start: 09/08/19 17:39 Freq: Status: Active Protocol: Document 10/04/19 08:17 LRN (Rec: 10/04/19 09:14 LRN [id number]) Electric Stimulation Electric Stimulation Interferential Current (IFC) Body Location Pads: midback>Low back paraspinals Duration (Minutes) 16 Intensity 11 Target/Sweep Sweep Patient Position Hooklying Combined With Heat/Cold Hot Pack Comments Hot pack to back with bolster Hot Pack/Cold Pack Treatment Hot Pack Location Back>LB Patient Position Hooklying Treatment Duration (minutes) 15 Comments Bolster under legs PT-OP-T Assessment and Plan Start: 09/08/19 17:39 Freq: Status: Active Protocol: Document 10/13/19 09:04 LRN (Rec: 10/13/19 09:52 LRN [id number]) Physical Therapy Assessment Goals Four Impairment Pain with traveling/work activities due to poor body awareness & core stab. Short Term Goal (STG) Pt will be educated in proper sitting posture, proper body mechanics for sitting, lifting , reaching, and throwing activities for painfree mobility. STG Duration 10/17/19 (10/11/19: MET GOAL) Bi Tester Goal (LTG) Improve core stability with pt able to maintain transverse abdominus contraction during above stated functional activities. LTG Duration 11/11/19 (10/11/19: MET GOAL) Three Impairment Low back pain with sit to stand transfers after prolonged sitting Short Term Goal (STG) Pt will demonstrate improved sitting posture and postural awareness with ability to sit 30 minutes without onset of pain transferring to standing. STG Duration 10/14/19 (10/04/19: MET GOAL) Bi Tester Goal (LTG) Improve posture in standing with lessening of C-curve ( apex on L) and pt able to exercise and perform work duties with awareness of proper body mechanics and posture. LTG Duration 11/11/19 (10/04/19: progressing , awareness with work duties, not home moves) Two Impairment Decreased hip mobility (Ext lacks 10 lokesh, ER 20 L, 35 R, IR 25 L, 45 R) Short Term Goal (STG) Pt will be educated in a self care hip flexibility home program of hip stretches. (09/30/19: HEP issued for hip flexors, 10/07/19: HEP issued for hip rotators) STG Duration 09/23/19 (10/11/19: MET GOAL) Snf Goal (LTG) Improve hip mobility for movement painfree in the anterior hip and low back (hip Ext 8 deg's, ER 40 deg's, IR 45 deg's bilaterally) LTG Duration 11/11/19 One Impairment Pt lacks appropriate self care HEP. Snf Goal (LTG) Pt will be independent and safe with a self care HEP to prevent onset of back pain. LTG Duration 11/11/19 (10/13/19: Progressing) Progress Towards Goals Progress Towards Goals Progressing Toward Goals Assessment Summary Assessment Pt shows fair understanding of recent HEP. He needed I/S and cuing for hamstring/LE neural stretch. He needed changes to arm positioning to find best positioning to stretch R mid thoracic paraspinals and strengthen L paraspinals. The pt appears to have had a switch in his C- Curve; therefore his scoliosis is flexible. Pt is consistent with home ex's. Physical Therapy Plan Frequency and Duration Frequency of Treatment 2x/Week Plan of Care Start Date 09/09/19 Plan of Care End Date 11/11/19 Next Visit Focus/Plan Next Note Type Treatment Note Next Visit Plan Assess pt response to climbing ladder without hanging off last rung during his planned work today. Assess back & trunk strength, Initiate back strengthening (mid back). JMT to lower thoracic and lumbar spine and ex to correct for C-Curve, Progress onto HEP of low back stretches, & core strengthening, Modalities of E-Stim to the back or ice to anterior hips/ LB as needed.
--- NOTE | 2019-10-18 12:18 | PT.OTN ---
Current Diagnoses Dorsalgia, unspecified (10/18/19) Other muscle spasm (10/18/19) Abnormal posture (10/18/19) Physical Therapy Treatment Note PT-OP-A Visit Information Start: 09/08/19 17:39 Freq: Status: Active Protocol: Document 10/18/19 08:16 LRN (Rec: 10/18/19 09:05 LRN [id number]) Out-Patient Physical Therapy Visit Information Visit Information Visit Type Treatment Note Visit Start Time 08:16 Visit Stop Time 09:04 Total Visit Minutes 48 Visit Number 9 Evaluation Information Evaluation Date 09/09/19 Precautions Precautions Per history review: Plantar fasciitis, essential HTN, L4- L5 surgery thought to be a fusion. 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 9 yr old daughter and 11 yr old son. PT-OP-C Subjective Start: 09/08/19 17:39 Freq: Status: Active Protocol: Document 10/18/19 08:16 LRN (Rec: 10/18/19 09:05 LRN [id number]) OP-PT Subjective Patient Comments Patient Comments States yesterday his L mid back tightened, and he was flossing his teeth he put his L hand down and sneezed. His back pain worsened as his day progressed. Day before he had been fishing. States after last session he worked on a ladder and did not hang from the last rung and his back was fine. PT-OP-G Mobility & Gait Start: 09/08/19 17:39 Freq: Status: Active Protocol: Document 09/09/19 08:18 LRN (Rec: 09/09/19 17:24 LRN [id number]) OP Mobility Evaluation Bed Mobility Rolling Independent Supine to and from Sit Independent Transfers Sit to Stand With difficulty leaning to L side and holds his L low back. PT-OP-J Posture/Palpation/Skin Start: 09/08/19 17:39 Freq: Status: Active Protocol: Document 09/09/19 08:18 LRN (Rec: 09/09/19 17:24 LRN [id number]) Posture Evaluation Comments Posture Comments Standing the pt has a C-curve of his back with the apex on the left at ~T6. His R Iliac crest is high. Palpation Assessment Location L lower T/S Palpation Location T6-T8 Palpation Findings Soft Tissue Tightness,Muscle Guarding,Tenderness L Lumbar paraspinals Palpation Location L lumbar paraspinals Palpation Findings Soft Tissue Tightness,Muscle Guarding,Tenderness PT-OP-K Range of Motion Start: 09/08/19 17:39 Freq: Status: Active Protocol: Document 09/09/19 08:18 LRN (Rec: 09/09/19 17:24 LRN [id number]) Lumbar Spine Range of Motion Lumbar Spine Active Degrees Testing Position Standing Flexion 70 Extension 20 Lateral Flexion Left 10 Lateral Flexion Right 15 ROM Limitations Soft Tissue Tightness Comments Active rotation is ~20 deg's bilaterally. Rotation R is normal spinal movement. Rotation L has a pivot at L2. Hip Goniometric Range of Motion Hip Right Passive Testing Position Supine Straight Leg Raise 65 Internal Rotation 45 External Rotation 35 Left Passive Testing Position Supine Straight Leg Raise 60 Internal Rotation 25 External Rotation 20 Hip ROM Limitations Hip ROM Limitations Soft Tissue Tightness,Pain Comments Bilateral Hip ext: lacks ~10 deg's as assessed during James test. PT-OP-L Special Tests Start: 09/08/19 17:39 Freq: Status: Active Protocol: Document 09/09/19 08:18 LRN (Rec: 09/09/19 17:24 LRN [id number]) Special Tests Lumbar Spine Special Tests Straight Leg Raise Test Results Borderline right, negative left Comments 60 degs right with ASIS pain, 65 deg's left with HS tightness Hip Special Tests James Test Results postive bilaterally Comments Tight Iliopsoas bilaterally PT-OP-M Strength Start: 09/08/19 17:39 Freq: Status: Active Protocol: Document 09/09/19 08:18 LRN (Rec: 09/09/19 17:24 LRN [id number]) Trunk Strength Trunk Manual Muscle Testing Testing Position Supine Flexion 5 Normal Hip Strength Hip Manual Muscle Testing Right Flexion (L2) 4+ Good+ Adduction 3+ Fair+ Comments Generally 5/5 except as indicated above. Left Comments Generally 5/5 except as indicated above. PT-OP-Q Treatments Start: 09/08/19 17:39 Freq: Status: Active Protocol: Document 10/18/19 08:16 LRN (Rec: 10/18/19 09:05 LRN [id number]) Therapeutic Exercises Prone Exercises RIVKA Prone Exercise Name RIVKA Side bilateral Reps/Minutes 10x 2 different times, before & after STM Comments Had to determine mobility range and teach proper movement pattern Standing Exercises Lateral Trunk Shift Standing Exercise Name R shoulder on wall, Pelvis shift to right Side right Equipment Used 5' Comments Extra time to train for correct movement and determine appropriate stretch Manual Therapy Treatment Soft Tissue Mobilization L thoracic/lumbar paraspinals Body Location L lower thoracic/lumbar paraspinals Mobilization Type Myofascial Release,Strumming Intensity/Depth Deep Body Position Prone Joint Mobilizations L3 Joint Correcting a L rotation Grade II Body Position Prone Reps/Duration 5' Self-Care/Home Management Treatment Education Patient Education Body Mechanics Other Education Reviewed core stab and with movements for transfers up/ down from supine and sittng. PT-OP-R Modalities Start: 09/08/19 17:39 Freq: Status: Active Protocol: Document 10/18/19 08:16 LRN (Rec: 10/18/19 09:05 LRN [id number]) Electric Stimulation Electric Stimulation Interferential Current (IFC) Body Location Back (centered @ L2-L3) Duration (Minutes) 15 Intensity 22 Target/Sweep Sweep Patient Position Prone Combined With Heat/Cold Hot Pack Hot Pack/Cold Pack Treatment Hot Pack Location Back>LB Patient Position Prone Treatment Duration (minutes) 15 PT-OP-T Assessment and Plan Start: 09/08/19 17:39 Freq: Status: Active Protocol: Document 10/18/19 08:16 LRN (Rec: 10/18/19 09:05 LRN [id number]) Physical Therapy Assessment Goals Four Impairment Pain with traveling/work activities due to poor body awareness & core stab. Short Term Goal (STG) Pt will be educated in proper sitting posture, proper body mechanics for sitting, lifting , reaching, and throwing activities for painfree mobility. STG Duration 10/17/19 (10/11/19: MET GOAL) Compliance Investigator Goal (LTG) Improve core stability with pt able to maintain transverse abdominus contraction during above stated functional activities. LTG Duration 11/11/19 (10/11/19: MET GOAL) Three Impairment Low back pain with sit to stand transfers after prolonged sitting Short Term Goal (STG) Pt will demonstrate improved sitting posture and postural awareness with ability to sit 30 minutes without onset of pain transferring to standing. STG Duration 10/14/19 (10/04/19: MET GOAL) Mcc Goal (LTG) Improve posture in standing with lessening of C-curve ( apex on L) and pt able to exercise and perform work duties with awareness of proper body mechanics and posture. LTG Duration 11/11/19 (10/04/19: progressing , awareness with work duties, not home moves) Two Impairment Decreased hip mobility (Ext lacks 10 lokesh, ER 20 L, 35 R, IR 25 L, 45 R) Short Term Goal (STG) Pt will be educated in a self care hip flexibility home program of hip stretches. (09/30/19: HEP issued for hip flexors, 10/07/19: HEP issued for hip rotators) STG Duration 09/23/19 (10/11/19: MET GOAL) Mcc Goal (LTG) Improve hip mobility for movement painfree in the anterior hip and low back (hip Ext 8 deg's, ER 40 deg's, IR 45 deg's bilaterally) LTG Duration 11/11/19 One Impairment Pt lacks appropriate self care HEP. Compliance Investigator Goal (LTG) Pt will be independent and safe with a self care HEP to prevent onset of back pain. LTG Duration 11/11/19 (10/13/19: Progressing) Progress Towards Goals Progress Towards Goals Slow Progress due to Activity Tolerance Progress Comments Pt attends flared up today with difficulty walking and positioning due to mid>low back pain. Pt had some relief of his pain today after treatment and had decreased pain with ridgid posturing of his trunk. Assessment Summary Assessment Pt presents today with a flare up of back pain and anterior hip pain. His trunk is laterally shifted right and his mid>lower trunk is L rotated. He presents with symptoms of possible herniated disc of lower thoracic/upper lumbar region. He had some relief of pain with treatment, but poor positioning will hinder his progress. Physical Therapy Plan Frequency and Duration Frequency of Treatment 2x/Week Plan of Care Start Date 09/09/19 Plan of Care End Date 11/11/19 Next Visit Focus/Plan Next Note Type Progress Note Next Visit Plan Reassess for PN. Check back & trunk strength, Initiate back strengthening (mid back). JMT to lower thoracic and lumbar spine and ex to correct for C-Curve, Progress onto HEP of low back stretches, & core strengthening, Modalities of E-Stim to the back or ice to anterior hips/ LB as needed.
--- NOTE | 2019-10-20 16:40 | PT.OTN ---
Current Diagnoses Dorsalgia, unspecified (10/20/19) Other muscle spasm (10/20/19) Abnormal posture (10/20/19) Physical Therapy Treatment Note PT-OP-A Visit Information Start: 09/08/19 17:39 Freq: Status: Active Protocol: Document 10/20/19 09:05 LRN (Rec: 10/20/19 09:52 LRN [id number]) Out-Patient Physical Therapy Visit Information Visit Information Visit Type Progress Note Visit Start Time 09:05 Visit Stop Time 09:51 Total Visit Minutes 46 Visit Number 10 Evaluation Information Evaluation Date 09/09/19 Precautions Precautions Per history review: Plantar fasciitis, essential HTN, L4- L5 surgery thought to be a fusion. 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 9 yr old daughter and 11 yr old son. PT-OP-C Subjective Start: 09/08/19 17:39 Freq: Status: Active Protocol: Document 10/20/19 09:05 LRN (Rec: 10/20/19 09:52 LRN [id number]) OP-PT Subjective Patient Comments Patient Comments Had to have a shot of Dexamethoasone and given ms relaxor at walk in clinic yesterday that helped a lot. Now no pain if standing upright, a little in the L anterior hip. Pain with sitting and squatting. Patient Questionnaires Oswestry Low Back Index Oswestry Score 36 Oswestry Impairment 20 to 39% Impaired (Score 20- 39) OP-PT Pain Assessment Location Left Lower Thoracic Pain Location Details Left lower thoracic and ribs Intensity 6 Scale Used Numeric (0 - 10) Description Aching Low back Pain Location Details Across lumbar region Intensity 0 Scale Used Numeric (0 - 10) L Anterior Hip Pain Location Details ASIS Intensity 6 Scale Used Numeric (0 - 10) Description Aching R Anterior hip Pain Location Details R anterior hip Intensity 0 Scale Used Numeric (0 - 10) PT-OP-G Mobility & Gait Start: 09/08/19 17:39 Freq: Status: Active Protocol: Document 09/09/19 08:18 LRN (Rec: 09/09/19 17:24 LRN [id number]) OP Mobility Evaluation Bed Mobility Rolling Independent Supine to and from Sit Independent Transfers Sit to Stand With difficulty leaning to L side and holds his L low back. PT-OP-J Posture/Palpation/Skin Start: 09/08/19 17:39 Freq: Status: Active Protocol: Document 09/09/19 08:18 LRN (Rec: 09/09/19 17:24 LRN [id number]) Posture Evaluation Comments Posture Comments Standing the pt has a C-curve of his back with the apex on the left at ~T6. His R Iliac crest is high. Palpation Assessment Location L lower T/S Palpation Location T6-T8 Palpation Findings Soft Tissue Tightness,Muscle Guarding,Tenderness L Lumbar paraspinals Palpation Location L lumbar paraspinals Palpation Findings Soft Tissue Tightness,Muscle Guarding,Tenderness PT-OP-K Range of Motion Start: 09/08/19 17:39 Freq: Status: Active Protocol: Document 09/09/19 08:18 LRN (Rec: 09/09/19 17:24 LRN [id number]) Lumbar Spine Range of Motion Lumbar Spine Active Degrees Testing Position Standing Flexion 70 Extension 20 Lateral Flexion Left 10 Lateral Flexion Right 15 ROM Limitations Soft Tissue Tightness Comments Active rotation is ~20 deg's bilaterally. Rotation R is normal spinal movement. Rotation L has a pivot at L2. Hip Goniometric Range of Motion Hip Right Passive Testing Position Supine Straight Leg Raise 65 Internal Rotation 45 External Rotation 35 Left Passive Testing Position Supine Straight Leg Raise 60 Internal Rotation 25 External Rotation 20 Hip ROM Limitations Hip ROM Limitations Soft Tissue Tightness,Pain Comments Bilateral Hip ext: lacks ~10 deg's as assessed during James test. PT-OP-L Special Tests Start: 09/08/19 17:39 Freq: Status: Active Protocol: Document 09/09/19 08:18 LRN (Rec: 09/09/19 17:24 LRN [id number]) Special Tests Lumbar Spine Special Tests Straight Leg Raise Test Results Borderline right, negative left Comments 60 degs right with ASIS pain, 65 deg's left with HS tightness Hip Special Tests James Test Results postive bilaterally Comments Tight Iliopsoas bilaterally PT-OP-M Strength Start: 09/08/19 17:39 Freq: Status: Active Protocol: Document 07/17/20 08:18 LRN (Rec: 09/09/19 17:24 LRN [id number]) Trunk Strength Trunk Manual Muscle Testing Testing Position Supine Flexion 5 Normal Hip Strength Hip Manual Muscle Testing Right Flexion (L2) 4+ Good+ Adduction 3+ Fair+ Comments Generally 5/5 except as indicated above. Left Comments Generally 5/5 except as indicated above. PT-OP-Q Treatments Start: 09/08/19 17:39 Freq: Status: Active Protocol: Document 10/20/19 09:05 LRN (Rec: 10/20/19 11:10 LRN [id number]) Therapeutic Exercises Prone Exercises TA Prone Exercise Name TA Side bilateral Comments Teaching max TA contraction tolerance for holding posture. 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 Mobilization Type Strumming,Sustained Pressure Intensity/Depth Moderate Body Position Prone Self-Care/Home Management Treatment Education Patient Education Posture Other Education Pt education, at length, for proper posturing: with standing and sitting. Discussed various methods to minimize pain with standing posture (MWM of pressure at L upper lumbar TP region) and discussed positioning in bed with support to low back. Discussed firmness of bed and advised not to make drastic changes at this time. Educated pt in MWM during gait (see above) for relieving pain in the anterior hips during gait. PT-OP-R Modalities Start: 09/08/19 17:39 Freq: Status: Active Protocol: Document 10/18/19 08:16 LRN (Rec: 10/18/19 09:05 LRN [id number]) Electric Stimulation Electric Stimulation Interferential Current (IFC) Body Location Back (centered @ L2-L3) Duration (Minutes) 15 Intensity 22 Target/Sweep Sweep Patient Position Prone Combined With Heat/Cold Hot Pack Hot Pack/Cold Pack Treatment Hot Pack Location Back>LB Patient Position Prone Treatment Duration (minutes) 15 PT-OP-T Assessment and Plan Start: 09/08/19 17:39 Freq: Status: Active Protocol: Document 10/20/19 09:05 LRN (Rec: 10/20/19 11:10 LRN [id number]) Physical Therapy Assessment Rehab Potential Rehabilitation Potential Good Evaluation Complexity Number of Personal Factors/Comorbidities 1-2 Number of Body Systems Impaired 4 or More Clinical Presentation at Evaluation Evolving Impairments Impairments Activity Tolerance,Gait,Pain, ROM,Soft Tissue Mobility, Strength,Transfers Goals Four Impairment Pain with traveling/work activities due to poor body awareness & core stab. Short Term Goal (STG) Pt will be educated in proper sitting posture, proper body mechanics for sitting, lifting , reaching, and throwing activities for painfree mobility. STG Duration 10/17/19 (10/11/19: MET GOAL) Environmental Research Scientist Goal (LTG) Improve core stability with pt able to maintain transverse abdominus contraction during above stated functional activities. LTG Duration 11/11/19 (10/11/19: MET GOAL) Three Impairment Low back pain with sit to stand transfers after prolonged sitting Short Term Goal (STG) Pt will demonstrate improved sitting posture and postural awareness with ability to sit 30 minutes without onset of pain transferring to standing. STG Duration 10/14/19 (10/04/19: MET GOAL) Retirement Goal (LTG) Improve posture in standing with lessening of C-curve ( apex on L) and pt able to exercise and perform work duties with awareness of proper body mechanics and posture. LTG Duration 11/11/19 (10/04/19: progressing , awareness with work duties, not home moves) Two Impairment Decreased hip mobility (Ext lacks 10 lokesh, ER 20 L, 35 R, IR 25 L, 45 R) Short Term Goal (STG) Pt will be educated in a self care hip flexibility home program of hip stretches. (09/30/19: HEP issued for hip flexors, 10/07/19: HEP issued for hip rotators) STG Duration 09/23/19 (10/11/19: MET GOAL) Environmental Research Scientist Goal (LTG) Improve hip mobility for movement painfree in the anterior hip and low back (hip Ext 8 deg's, ER 40 deg's, IR 45 deg's bilaterally) LTG Duration 11/11/19 One Impairment Pt lacks appropriate self care HEP. Environmental Research Scientist Goal (LTG) Pt will be independent and safe with a self care HEP to prevent onset of back pain. LTG Duration 11/11/19 (10/13/19: Progressing) Progress Towards Goals Progress Towards Goals Slow Progress due to Activity Tolerance Progress Comments Pt in flare up state with low tolerance to activity and movement due to pain in the L lateral back and L anterior hip. Assessment Summary Assessment Pt presents today in recovery from a flared up state. He has been progressing nicely until 10/12/19, he tractioned his back while hanging from the last step on a ladder, and had anterior hip and lateral hip pain on the right. On he then ended up sneezing, while slightly bent forward, resulting in an increase in back pain. Then, yesterday his pain was so severe he ended up going to the walk in clinic and receiving a shot of Dexamethasone and muscle relaxors for pain relief. His pain is most after sitting . He was able to sit in clinic for brief periods with his pain controlled by trunk bracing and proper posturing. It appears his spine has straightened with only a very small C-curve of the lower thoracic and upper lumbar spine with the apex on the left. His pain also seems to be controlled by MWM of derotating the L rotated lower thoracic/upper lumbar spine during gait, that lasts a short period of time. 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 Disc dysfunction may be possible. Prior to onset the pt was having rare complaints of anterior hip pain, and complained mostly of mid back pain. His primary complaint appears to be mid back pain with L anterior hip pain. He did not complain of R hip pain . Pt will benefit from continued physical therapy with possible extension of his therapy time depending on how quickly he can recover from his flare up. An MRI of his lower thoracic and upper lumbar spine would be helpful to determine possible disc involvement. The pt may benefit from a lumbar support soft brace. I will try to assess this at his next appointment. Physical Therapy Plan Frequency and Duration Frequency of Treatment 2x/Week Plan of Care Start Date 09/09/19 Plan of Care End Date 12/09/19 Therapeutic Interventions Therapeutic Interventions Home Exercise Program,Joint Mobilizations,Manual Therapy, Patient/Caregiver Education, Self-Care/Home Management,Soft Tissue Mobilization, Therapeutic Activities, Therapeutic Exercises Modalities Cold Pack/Ice Massage,Electric Stimulation,Hot Packs, Ultrasound Next Visit Focus/Plan Next Note Type Treatment Note Next Visit Plan Re-check PSLR & hip mobility and response to treatment. Trial trunk support with blue strap or thoracic/lumbar support. When appropriate, check back & trunk strength, Initiate back strengthening ( mid back). JMT to lower thoracic and lumbar spine and ex to correct for C-Curve as needed, Progress onto HEP of low back stretches, & core strengthening, Modalities of E-Stim to the back or ice to anterior hips/ LB as needed.
--- NOTE | 2019-10-25 12:28 | PT.OTN ---
Current Diagnoses Dorsalgia, unspecified (10/25/19) Other muscle spasm (10/25/19) Abnormal posture (10/25/19) Physical Therapy Treatment Note PT-OP-A Visit Information Start: 09/08/19 17:39 Freq: Status: Active Protocol: Document 10/25/19 08:16 LRN (Rec: 10/25/19 09:03 LRN [id number]) Out-Patient Physical Therapy Visit Information Visit Information Visit Type Treatment Note Visit Note 1 after PN Visit Start Time 08:16 Visit Stop Time 09:03 Total Visit Minutes 47 Visit Number 11 Evaluation Information Evaluation Date 09/09/19 Precautions Precautions Per history review: Plantar fasciitis, essential HTN, L4- L5 surgery thought to be a fusion. 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 9 yr old daughter and 11 yr old son. PT-OP-C Subjective Start: 09/08/19 17:39 Freq: Status: Active Protocol: Document 10/25/19 08:16 LRN (Rec: 10/25/19 09:03 LRN [id number]) OP-PT Subjective Patient Comments Patient Comments States he is using his self MWM of thumb to his L LB to decrease the anterior hip pain . Has learned to sleep on R side and avoiding the L, so he is better in the morning. Slept on his back on his boat without pain. Was on his boat this weekend standing and walking was fine without pain. His biggest probem is sitting. PT-OP-G Mobility & Gait Start: 09/08/19 17:39 Freq: Status: Active Protocol: Document 09/09/19 08:18 LRN (Rec: 09/09/19 17:24 LRN [id number]) OP Mobility Evaluation Bed Mobility Rolling Independent Supine to and from Sit Independent Transfers Sit to Stand With difficulty leaning to L side and holds his L low back. PT-OP-J Posture/Palpation/Skin Start: 09/08/19 17:39 Freq: Status: Active Protocol: Document 09/09/19 08:18 LRN (Rec: 09/09/19 17:24 LRN [id number]) Posture Evaluation Comments Posture Comments Standing the pt has a C-curve of his back with the apex on the left at ~T6. His R Iliac crest is high. Palpation Assessment Location L lower T/S Palpation Location T6-T8 Palpation Findings Soft Tissue Tightness,Muscle Guarding,Tenderness L Lumbar paraspinals Palpation Location L lumbar paraspinals Palpation Findings Soft Tissue Tightness,Muscle Guarding,Tenderness PT-OP-K Range of Motion Start: 09/08/19 17:39 Freq: Status: Active Protocol: Document 10/25/19 08:16 LRN (Rec: 10/25/19 12:28 LRN [id number]) Hip Goniometric Range of Motion Hip Right Passive Testing Position Supine Straight Leg Raise 65 Left Passive Testing Position Supine Straight Leg Raise 60 PT-OP-L Special Tests Start: 09/08/19 17:39 Freq: Status: Active Protocol: Document 10/25/19 08:16 LRN (Rec: 10/25/19 09:03 LRN [id number]) Special Tests Lumbar Spine Special Tests Straight Leg Raise Test Results Right 65 degs, left 60 deg's. PT-OP-M Strength Start: 09/08/19 17:39 Freq: Status: Active Protocol: Document 09/09/19 08:18 LRN (Rec: 09/09/19 17:24 LRN [id number]) Trunk Strength Trunk Manual Muscle Testing Testing Position Supine Flexion 5 Normal Hip Strength Hip Manual Muscle Testing Right Flexion (L2) 4+ Good+ Adduction 3+ Fair+ Comments Generally 5/5 except as indicated above. Left Comments Generally 5/5 except as indicated above. PT-OP-Q Treatments Start: 09/08/19 17:39 Freq: Status: Active Protocol: Document 10/25/19 08:16 LRN (Rec: 10/25/19 09:03 LRN [id number]) Therapeutic Exercises Supine Exercises Hamstring/LE neural stretch Supine Exercise Name Hamstring/LE neural stretch Side bilateral Reps/Minutes 6' Comments Extra time for phys & v cuing to perform correctly during stretch Sitting Exercises C-Curve ex Sitting Exercise Name C-curve (apex L) ex: L. SB stretch, R arm ext. R rot. Reps/Minutes 8' Standing Exercises C-curve ex Standing Exercise Name Standing L SB stretch Reps/Minutes 2' Other Exercises Trunk rot stretch Other Exercise Name Trunk R rot f/b training for strengthening Reps/Minutes 4' Comments Training of use of T-Band with brief discussion of various heights of ex Self-Care/Home Management Treatment Education Patient Education Home Exercise Program,Pain Management,Posture Other Education Educated pt in proper sitting posture for his condition ( towel folded to support the L lower thoracic/upper lumbar), with extensive discussion and time for finding maximal posture to relieve anterior hip and back pain with sitting in various different chairs. Practiced sitting 5' , f/b transfer training to standing. Discussion of pt's work setting with education and problem solving of positioning to work at his computer. Self care MWM review of optimal pressure on L lower mid back for pain relief with walking. Discussed Activities Self-Care/Home Management Activities HEP issued and reviewed of written I/S for core stability ex's to concentrate on (trunk R rot, L SB stretch, and R arm lift and HS/LE neural stretch). PT-OP-R Modalities Start: 09/08/19 17:39 Freq: Status: Active Protocol: Document 10/18/19 08:16 LRN (Rec: 10/18/19 09:05 LRN [id number]) Electric Stimulation Electric Stimulation Interferential Current (IFC) Body Location Back (centered @ L2-L3) Duration (Minutes) 15 Intensity 22 Target/Sweep Sweep Patient Position Prone Combined With Heat/Cold Hot Pack Hot Pack/Cold Pack Treatment Hot Pack Location Back>LB Patient Position Prone Treatment Duration (minutes) 15 PT-OP-T Assessment and Plan Start: 09/08/19 17:39 Freq: Status: Active Protocol: Document 10/25/19 08:16 LRN (Rec: 10/25/19 10:31 LRN [id number]) Physical Therapy Assessment Goals Four Impairment Pain with traveling/work activities due to poor body awareness & core stab. Short Term Goal (STG) Pt will be educated in proper sitting posture, proper body mechanics for sitting, lifting , reaching, and throwing activities for painfree mobility. 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 LTG Duration 11/11/19 (10/11/19: MET GOAL) Three Impairment Low back pain with sit to stand transfers after prolonged sitting Short Term Goal (STG) Pt will demonstrate improved sitting posture and postural awareness with ability to sit 30 minutes without onset of pain transferring to standing. STG Duration 10/14/19 (10/04/19: MET GOAL) Metal Pickling Equipment Operator Goal (LTG) Improve posture in standing with lessening of C-curve ( apex on L) and pt able to exercise and perform work duties with awareness of proper body mechanics and posture. (10/25/19: Today for first time pt shows no C-Curve of mid> low back). LTG Duration 11/11/19 (10/25/19: Improving) Two Impairment Decreased hip mobility (Ext lacks 10 lokesh, ER 20 L, 35 R, IR 25 L, 45 R) Short Term Goal (STG) Pt will be educated in a self care hip flexibility home program of hip stretches. (09/30/19: HEP issued for hip flexors, 10/07/19: HEP issued for hip rotators) STG Duration 09/23/19 (10/11/19: MET GOAL) Metal Pickling Equipment Operator Goal (LTG) Improve hip mobility for movement painfree in the anterior hip and low back (hip Ext 8 deg's, ER 40 deg's, IR 45 deg's bilaterally) LTG Duration 11/11/19 One Impairment Pt lacks appropriate self care HEP. Custodial Goal (LTG) Pt will be independent and safe with a self care HEP to prevent onset of back pain. LTG Duration 11/11/19 (10/25/19: Progressing) Progress Towards Goals Progress Comments No noticeable C-Curve of mid> low back but tightness is present in L paraspinal region . Assessment Summary Assessment No notable C-Curve of the spine but tightness remains on the left ~T10-L2 paraspinals due to the apex being on the L previously fin that location. Pt was able to sit for ~5' or more with posture corrected & addition of folded towel in lower thoracic/upper lumbar paraspinals support. PSLR shows L (60 deg's) tighter than R (65 deg's) and lokesh LE hamstring/neural tightness, no significant signs of lumbar neural involvement. Back strength is normal except pain with extension. Physical Therapy Plan Frequency and Duration Frequency of Treatment 2x/Week Plan of Care Start Date 09/09/19 Plan of Care End Date 12/09/19 Next Visit Focus/Plan Next Note Type Treatment Note Next Visit Plan Re-check hip mobility. Trial trunk support with blue strap or thoracic/lumbar support. Cont back strengthening (mid back) rotation R. JMT to lower thoracic and lumbar spine and ex to improve jt mobility as needed, Progress onto HEP of low back stretches (trunk R rot, L SB), & core strengthening (L paraspinals), Modalities of E-Stim to the back or ice to anterior hips/ LB if needed.
--- NOTE | 2019-10-27 16:18 | PT.OTN ---
Current Diagnoses Dorsalgia, unspecified (10/27/19) Other muscle spasm (10/27/19) Abnormal posture (10/27/19) Physical Therapy Treatment Note PT-OP-A Visit Information Start: 09/08/19 17:39 Freq: Status: Active Protocol: Document 10/27/19 08:19 LRN (Rec: 10/27/19 09:05 LRN [id number]) Out-Patient Physical Therapy Visit Information Visit Information Visit Type Treatment Note Visit Start Time 08:19 Visit Stop Time 09:04 Total Visit Minutes 45 Visit Number 12 Evaluation Information Evaluation Date 09/09/19 Precautions Precautions Per history review: Plantar fasciitis, essential HTN, L4- L5 surgery thought to be a fusion. 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 9 yr old daughter and 11 yr old son. PT-OP-C Subjective Start: 09/08/19 17:39 Freq: Status: Active Protocol: Document 10/27/19 08:19 LRN (Rec: 10/27/19 09:05 LRN [id number]) OP-PT Subjective Patient Comments Patient Comments States he has noticed that he is putting his thick wallet in his L pocket all the time for a long time. He is now having intermittent tightness. Not sitting as much. PT-OP-G Mobility & Gait Start: 09/08/19 17:39 Freq: Status: Active Protocol: Document 09/09/19 08:18 LRN (Rec: 09/09/19 17:24 LRN [id number]) OP Mobility Evaluation Bed Mobility Rolling Independent Supine to and from Sit Independent Transfers Sit to Stand With difficulty leaning to L side and holds his L low back. PT-OP-J Posture/Palpation/Skin Start: 09/08/19 17:39 Freq: Status: Active Protocol: Document 09/09/19 08:18 LRN (Rec: 09/09/19 17:24 LRN [id number]) Posture Evaluation Comments Posture Comments Standing the pt has a C-curve of his back with the apex on the left at ~T6. His R Iliac crest is high. Palpation Assessment Location L lower T/S Palpation Location T6-T8 Palpation Findings Soft Tissue Tightness,Muscle Guarding,Tenderness L Lumbar paraspinals Palpation Location L lumbar paraspinals Palpation Findings Soft Tissue Tightness,Muscle Guarding,Tenderness PT-OP-K Range of Motion Start: 09/08/19 17:39 Freq: Status: Active Protocol: Document 10/25/19 08:16 LRN (Rec: 10/25/19 12:28 LRN [id number]) Hip Goniometric Range of Motion Hip Right Passive Testing Position Supine Straight Leg Raise 65 Left Passive Testing Position Supine Straight Leg Raise 60 PT-OP-L Special Tests Start: 09/08/19 17:39 Freq: Status: Active Protocol: Document 10/25/19 08:16 LRN (Rec: 10/25/19 09:03 LRN [id number]) Special Tests Lumbar Spine Special Tests Straight Leg Raise Test Results Right 65 degs, left 60 deg's. PT-OP-M Strength Start: 09/08/19 17:39 Freq: Status: Active Protocol: Document 09/09/19 08:18 LRN (Rec: 09/09/19 17:24 LRN [id number]) Trunk Strength Trunk Manual Muscle Testing Testing Position Supine Flexion 5 Normal Hip Strength Hip Manual Muscle Testing Right Flexion (L2) 4+ Good+ Adduction 3+ Fair+ Comments Generally 5/5 except as indicated above. Left Comments Generally 5/5 except as indicated above. PT-OP-Q Treatments Start: 09/08/19 17:39 Freq: Status: Active Protocol: Document 10/27/19 08:19 LRN (Rec: 10/27/19 09:05 LRN [id number]) Therapeutic Exercises Supine Exercises PROM Hip ER/IR Supine Exercise Name PROM hip ER/IR Side bilateral Reps/Minutes 8' Comments Stretch f/b ROM measurements Hamstring/LE neural stretch Supine Exercise Name Hamstring/LE neural stretch Side bilateral Reps/Minutes 6' Comments Extra time for phys & v cuing to perform correctly during stretch Piriformis stretch Supine Exercise Name Knee to opposite shoulder and Cross legged KTC Side bilateral Reps/Minutes 4' Comments Phys & v cuing needed to get proper stretch Fig 4 stretch Supine Exercise Name Fig 4 stretch immediately f/b active stretch Side bilateral Reps/Minutes 3' Comments Determined max stretch tolerated, used pillow roll under thigh for support Hip flexor stretch Supine Exercise Name Hip Flexor stretch, f/b active stretch Side bilateral Reps/Minutes 8' Comments Initial quick review needed. Standing Exercises C-curve ex Standing Exercise Name Standing L SB stretch, lift L arm and L hip AB Reps/Minutes 7' Other Exercises Trunk rot stretch Other Exercise Name Trunk R rot stretch Reps/Minutes 4' Child pose Other Exercise Name Modified Child pose per pt mobility with extra stretch to L side. Reps/Minutes 3' Comments Extra time for training to do ex properly PT-OP-R Modalities Start: 09/08/19 17:39 Freq: Status: Active Protocol: Document 10/18/19 08:16 LRN (Rec: 10/18/19 09:05 LRN [id number]) Electric Stimulation Electric Stimulation Interferential Current (IFC) Body Location Back (centered @ L2-L3) Duration (Minutes) 15 Intensity 22 Target/Sweep Sweep Patient Position Prone Combined With Heat/Cold Hot Pack Hot Pack/Cold Pack Treatment Hot Pack Location Back>LB Patient Position Prone Treatment Duration (minutes) 15 PT-OP-T Assessment and Plan Start: 09/08/19 17:39 Freq: Status: Active Protocol: Document 10/27/19 08:19 LRN (Rec: 10/27/19 09:05 LRN [id number]) Physical Therapy Assessment Goals Four Impairment Pain with traveling/work activities due to poor body awareness & core stab. Short Term Goal (STG) Pt will be educated in proper sitting posture, proper body mechanics for sitting, lifting , reaching, and throwing activities for painfree mobility. STG Duration 10/17/19 (10/11/19: MET GOAL) Senior Living Goal (LTG) Improve core stability with pt able to maintain transverse abdominus contraction during above stated functional activities. LTG Duration 11/11/19 (10/11/19: MET GOAL) Three Impairment Low back pain with sit to stand transfers after prolonged sitting Short Term Goal (STG) Pt will demonstrate improved sitting posture and postural awareness with ability to sit 30 minutes without onset of pain transferring to standing. STG Duration 10/14/19 (10/04/19: MET GOAL) Division Human Resources Manager Goal (LTG) Improve posture in standing with lessening of C-curve ( apex on L) and pt able to exercise and perform work duties with awareness of proper body mechanics and posture. (10/25/19: Today for first time pt shows no C-Curve of mid> low back). LTG Duration 11/11/19 (10/25/19: Improving) Two Impairment Decreased hip mobility (Ext lacks 10 lokesh, ER 20 L, 35 R, IR 25 L, 45 R) Short Term Goal (STG) Pt will be educated in a self care hip flexibility home program of hip stretches. (09/30/19: HEP issued for hip flexors, 10/07/19: HEP issued for hip rotators) STG Duration 09/23/19 (10/11/19: MET GOAL) Senior Living Goal (LTG) Improve hip mobility for movement painfree in the anterior hip and low back (hip Ext 8 deg's, ER 40 deg's, IR 45 deg's bilaterally) LTG Duration 11/11/19 One Impairment Pt lacks appropriate self care HEP. Senior Living Goal (LTG) Pt will be independent and safe with a self care HEP to prevent onset of back pain. LTG Duration 11/11/19 (10/25/19: Progressing) Progress Towards Goals Progress Comments Pt improved in hip mobility bilaterally: Hip IR improved from 25 to 45 deg's left, decreased 45 to 35 deg's right (but improved symmetry); Hip ER improved from 20 to 55 deg's left, and 35 to 60 deg's right. Improved symmetry of trunk lateral flexion from 10 to 14 deg's left, and 15 to 16 deg's right. Assessment Summary Assessment Pt has been trying not to have his wallet in his L hip pocket due to his noticing a connection to his poor posturing. Pt hip mobility for ER showed big improvement. Hip IR improved on left, but not on right, but symmetry improved. Trunk SB symmetry improved with 14 deg's left, 16 deg's right. Physical Therapy Plan Frequency and Duration Frequency of Treatment 2x/Week Plan of Care Start Date 09/09/19 Plan of Care End Date 12/09/19 Next Visit Focus/Plan Next Note Type Treatment Note Next Visit Plan Assess and make recommendations on pt sitting posture in vehicle. Possible trial trunk support with blue strap or thoracic/lumbar support. Progress scoliosis program. Cont back strengthening (mid back): rotation R, R hip AB & shoulder flex, and trunk L SB. JMT to lower thoracic and lumbar spine, Progress onto HEP of low back stretches (trunk R rot, L SB), & core strengthening (R paraspinals), Modalities of E-Stim to the back or ice to anterior hips/ LB if needed.
--- NOTE | 2019-11-01 17:41 | PT.OTN ---
Current Diagnoses Dorsalgia, unspecified (11/01/19) Other muscle spasm (11/01/19) Abnormal posture (11/01/19) Physical Therapy Treatment Note PT-OP-A Visit Information Start: 09/08/19 17:39 Freq: Status: Active Protocol: Document 11/01/19 08:16 LRN (Rec: 11/01/19 09:02 LRN [id number]) Out-Patient Physical Therapy Visit Information Visit Information Visit Type Treatment Note Visit Start Time 08:16 Visit Stop Time 09:00 Total Visit Minutes 44 Visit Number 13 Evaluation Information Evaluation Date 09/09/19 Precautions Precautions Per history review: Plantar fasciitis, essential HTN, L4- L5 surgery thought to be a fusion. 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 9 yr old daughter and 11 yr old son. PT-OP-C Subjective Start: 09/08/19 17:39 Freq: Status: Active Protocol: Document 11/01/19 08:16 LRN (Rec: 11/01/19 09:02 LRN [id number]) OP-PT Subjective Patient Comments Patient Comments Had one onset of R anterior hip pain over holiday weekend. States in the back he is feeling discomfort under his R shoulder blade. He is able to control it by stretching. No pain meds for past 4 days, today no pain. PT-OP-G Mobility & Gait Start: 09/08/19 17:39 Freq: Status: Active Protocol: Document 09/09/19 08:18 LRN (Rec: 09/09/19 17:24 LRN [id number]) OP Mobility Evaluation Bed Mobility Rolling Independent Supine to and from Sit Independent Transfers Sit to Stand With difficulty leaning to L side and holds his L low back. PT-OP-J Posture/Palpation/Skin Start: 09/08/19 17:39 Freq: Status: Active Protocol: Document 09/09/19 08:18 LRN (Rec: 09/09/19 17:24 LRN [id number]) Posture Evaluation Comments Posture Comments Standing the pt has a C-curve of his back with the apex on the left at ~T6. His R Iliac crest is high. Palpation Assessment Location L lower T/S Palpation Location T6-T8 Palpation Findings Soft Tissue Tightness,Muscle Guarding,Tenderness L Lumbar paraspinals Palpation Location L lumbar paraspinals Palpation Findings Soft Tissue Tightness,Muscle Guarding,Tenderness PT-OP-K Range of Motion Start: 09/08/19 17:39 Freq: Status: Active Protocol: Document 10/25/19 08:16 LRN (Rec: 10/25/19 12:28 LRN [id number]) Hip Goniometric Range of Motion Hip Right Passive Testing Position Supine Straight Leg Raise 65 Left Passive Testing Position Supine Straight Leg Raise 60 PT-OP-L Special Tests Start: 09/08/19 17:39 Freq: Status: Active Protocol: Document 10/25/19 08:16 LRN (Rec: 10/25/19 09:03 LRN [id number]) Special Tests Lumbar Spine Special Tests Straight Leg Raise Test Results Right 65 degs, left 60 deg's. PT-OP-M Strength Start: 09/08/19 17:39 Freq: Status: Active Protocol: Document 09/09/19 08:18 LRN (Rec: 09/09/19 17:24 LRN [id number]) Trunk Strength Trunk Manual Muscle Testing Testing Position Supine Flexion 5 Normal Hip Strength Hip Manual Muscle Testing Right Flexion (L2) 4+ Good+ Adduction 3+ Fair+ Comments Generally 5/5 except as indicated above. Left Comments Generally 5/5 except as indicated above. PT-OP-Q Treatments Start: 09/08/19 17:39 Freq: Status: Active Protocol: Document 11/01/19 08:16 LRN (Rec: 11/01/19 09:02 LRN [id number]) Cardio Equipment Treadmill Duration (Minutes) 8 Speed 2.2 Therapeutic Exercises Supine Exercises PROM Hip ER/IR Supine Exercise Name PROM hip ER/IR Side bilateral Reps/Minutes 8' Comments Stretch f/b ROM measurements Hamstring/LE neural stretch Supine Exercise Name Hamstring/LE neural stretch Side bilateral Reps/Minutes 6' Comments Extra time for phys & v cuing to perform correctly during stretch Piriformis stretch Supine Exercise Name Knee to opposite shoulder and Cross legged KTC Side left Reps/Minutes 4' Comments Phys & v cuing needed to get proper stretch Fig 4 stretch Supine Exercise Name Fig 4 stretch immediately f/b active stretch Side bilateral Reps/Minutes 3' Comments Determined max stretch tolerated, used pillow roll under thigh for support Sidelying Exercises L SB on T-Ball Sidelying Exercise Name L SB on T-Ball (green) Reps/Minutes 8x Comments Extra time to balance and position with ex Standing Exercises C-curve ex Standing Exercise Name Standing L SB stretch, lift R arm lift, R rot, & L hip AB Reps/Minutes 7' Comments Extra time for determining proper movement and positioning Self-Care/Home Management Treatment Education Patient Education Posture Activities Self-Care/Home Management Activities Issued how to set up home work station for pt to review. Discussed HEP and ex's to continue with review. Reviewed standing SB posturing . PT-OP-R Modalities Start: 09/08/19 17:39 Freq: Status: Active Protocol: Document 10/18/19 08:16 LRN (Rec: 10/18/19 09:05 LRN [id number]) Electric Stimulation Electric Stimulation Interferential Current (IFC) Body Location Back (centered @ L2-L3) Duration (Minutes) 15 Intensity 22 Target/Sweep Sweep Patient Position Prone Combined With Heat/Cold Hot Pack Hot Pack/Cold Pack Treatment Hot Pack Location Back>LB Patient Position Prone Treatment Duration (minutes) 15 PT-OP-T Assessment and Plan Start: 09/08/19 17:39 Freq: Status: Active Protocol: Document 11/01/19 08:16 LRN (Rec: 11/01/19 09:02 LRN [id number]) Physical Therapy Assessment Goals Four Impairment Pain with traveling/work activities due to poor body awareness & core stab. Short Term Goal (STG) Pt will be educated in proper sitting posture, proper body mechanics for sitting, lifting , reaching, and throwing activities for painfree mobility. STG Duration 10/17/19 (10/11/19: MET GOAL) Custodial Goal (LTG) Improve core stability with pt able to maintain transverse abdominus contraction during above stated functional activities. LTG Duration 11/11/19 (10/11/19: MET GOAL) Three Impairment Low back pain with sit to stand transfers after prolonged sitting Short Term Goal (STG) Pt will demonstrate improved sitting posture and postural awareness with ability to sit 30 minutes without onset of pain transferring to standing. STG Duration 10/14/19 (10/04/19: MET GOAL) Custodial Goal (LTG) Improve posture in standing with lessening of C-curve ( apex on L) and pt able to exercise and perform work duties with awareness of proper body mechanics and posture. (10/25/19: Today for first time pt shows no C-Curve of mid> low back). LTG Duration 11/11/19 (10/25/19: Improving) Two Impairment Decreased hip mobility (Ext lacks 10 lokesh, ER 20 L, 35 R, IR 25 L, 45 R) Short Term Goal (STG) Pt will be educated in a self care hip flexibility home program of hip stretches. (09/30/19: HEP issued for hip flexors, 10/07/19: HEP issued for hip rotators) STG Duration 09/23/19 (10/11/19: MET GOAL) Custodial Goal (LTG) Improve hip mobility for movement painfree in the anterior hip and low back (hip Ext 8 deg's, ER 40 deg's, IR 45 deg's bilaterally) LTG Duration 11/11/19 One Impairment Pt lacks appropriate self care HEP. Senior Quality Control Technician Goal (LTG) Pt will be independent and safe with a self care HEP to prevent onset of back pain. LTG Duration 11/11/19 (10/25/19: Progressing) Assessment Summary Assessment Pt appears to have very minimal C-curve of the lower thoracic with tightness of paraspinals on the left, and tightness of upper thoracic paraspinals on the right at the level of the scapula. Not able to assess sitting in truck due to pets in car. Lumbar/thoracic support doesn' t appear needed due to good spine alignment and no pain. Physical Therapy Plan Frequency and Duration Frequency of Treatment 2x/Week Plan of Care Start Date 09/09/19 Plan of Care End Date 12/09/19 Next Visit Focus/Plan Next Note Type Treatment Note Next Visit Plan Assess and make recommendations on pt sitting posture in vehicle. Progress scoliosis program. Cont back strengthening (mid back): rotation R, R hip AB & shoulder flex, and trunk L SB. JMT to lower thoracic and lumbar spine, Progress HEP of low back stretches (trunk R rot, L SB), & core strengthening (R paraspinals), Modalities of E-Stim to the back or ice to anterior hips/ LB if needed.
--- NOTE | 2019-11-10 14:10 | PT.OTN ---
Current Diagnoses Dorsalgia, unspecified (11/10/19) Other muscle spasm (11/10/19) Abnormal posture (11/10/19) Physical Therapy Treatment Note PT-OP-A Visit Information Start: 09/08/19 17:39 Freq: Status: Active Protocol: Document 11/10/19 08:14 LRN (Rec: 11/10/19 09:06 LRN [id number]) Out-Patient Physical Therapy Visit Information Visit Information Visit Type Treatment Note Visit Start Time 08:14 Visit Stop Time 09:00 Total Visit Minutes 46 Visit Number 14 Evaluation Information Evaluation Date 09/09/19 Precautions Precautions Per history review: Plantar fasciitis, essential HTN, L4- L5 surgery thought to be a fusion. 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 9 yr old daughter and 11 yr old son. PT-OP-C Subjective Start: 09/08/19 17:39 Freq: Status: Active Protocol: Document 11/10/19 08:14 LRN (Rec: 11/10/19 09:06 LRN [id number]) OP-PT Subjective Patient Comments Patient Comments Over weekend went up/down ladder a lot and felt R front hip, 2 days ago spen a lot of time in the truck and felt more anterior hip pain. States R arm lift has been helpful to control his pain. PT-OP-G Mobility & Gait Start: 09/08/19 17:39 Freq: Status: Active Protocol: Document 09/09/19 08:18 LRN (Rec: 09/09/19 17:24 LRN [id number]) OP Mobility Evaluation Bed Mobility Rolling Independent Supine to and from Sit Independent Transfers Sit to Stand With difficulty leaning to L side and holds his L low back. PT-OP-J Posture/Palpation/Skin Start: 09/08/19 17:39 Freq: Status: Active Protocol: Document 09/09/19 08:18 LRN (Rec: 09/09/19 17:24 LRN [id number]) Posture Evaluation Comments Posture Comments Standing the pt has a C-curve of his back with the apex on the left at ~T6. His R Iliac crest is high. Palpation Assessment Location L lower T/S Palpation Location T6-T8 Palpation Findings Soft Tissue Tightness,Muscle Guarding,Tenderness L Lumbar paraspinals Palpation Location L lumbar paraspinals Palpation Findings Soft Tissue Tightness,Muscle Guarding,Tenderness PT-OP-K Range of Motion Start: 09/08/19 17:39 Freq: Status: Active Protocol: Document 10/25/19 08:16 LRN (Rec: 10/25/19 12:28 LRN [id number]) Hip Goniometric Range of Motion Hip Right Passive Testing Position Supine Straight Leg Raise 65 Left Passive Testing Position Supine Straight Leg Raise 60 PT-OP-L Special Tests Start: 09/08/19 17:39 Freq: Status: Active Protocol: Document 10/25/19 08:16 LRN (Rec: 10/25/19 09:03 LRN [id number]) Special Tests Lumbar Spine Special Tests Straight Leg Raise Test Results Right 65 degs, left 60 deg's. PT-OP-M Strength Start: 09/08/19 17:39 Freq: Status: Active Protocol: Document 09/09/19 08:18 LRN (Rec: 09/09/19 17:24 LRN [id number]) Trunk Strength Trunk Manual Muscle Testing Testing Position Supine Flexion 5 Normal Hip Strength Hip Manual Muscle Testing Right Flexion (L2) 4+ Good+ Adduction 3+ Fair+ Comments Generally 5/5 except as indicated above. Left Comments Generally 5/5 except as indicated above. PT-OP-Q Treatments Start: 09/08/19 17:39 Freq: Status: Active Protocol: Document 11/10/19 08:14 LRN (Rec: 11/10/19 09:06 LRN [id number]) Therapeutic Exercises Supine Exercises Posterior pelvic tilts Supine Exercise Name PPT Reps/Minutes 5' Comments Pt required much phys & v cuing throughout exercise Upper abdominal tightening Supine Exercise Name Upper ab tightening > head lift. Reps/Minutes 20' Comments Pt had difficulty coordinating TA tightening before trunk flex TA tightening Supine Exercise Name TA tightening Reps/Minutes 5' Sitting Exercises C-Curve ex Sitting Exercise Name C-curve (apex L) ex: L. SB stretch, R arm ext. R rot. Reps/Minutes 4' Self-Care/Home Management Treatment Education Other Education 15' With pt's truck: Educated pt in proper sitting posture, requiring a small width of a folded hand towel behind the L low back and educating pt in awareness of neutral positioning of pelvis/ LE's. Educated pt in proper arm placement with driving and with proper trunk posture. Transfer training in/out of trunck. Activities Self-Care/Home Management Activities Issued & reviewed HEP handouts : Upper Abdominal strengthening with Pelvic Muscles & Progressive Stability/Core strengthening Program. PT-OP-R Modalities Start: 09/08/19 17:39 Freq: Status: Active Protocol: Document 10/18/19 08:16 LRN (Rec: 10/18/19 09:05 LRN [id number]) Electric Stimulation Electric Stimulation Interferential Current (IFC) Body Location Back (centered @ L2-L3) Duration (Minutes) 15 Intensity 22 Target/Sweep Sweep Patient Position Prone Combined With Heat/Cold Hot Pack Hot Pack/Cold Pack Treatment Hot Pack Location Back>LB Patient Position Prone Treatment Duration (minutes) 15 PT-OP-T Assessment and Plan Start: 09/08/19 17:39 Freq: Status: Active Protocol: Document 11/10/19 08:14 LRN (Rec: 11/10/19 09:06 LRN [id number]) Physical Therapy Assessment Goals Four Impairment Pain with traveling/work activities due to poor body awareness & core stab. Short Term Goal (STG) Pt will be educated in proper sitting posture, proper body mechanics for sitting, lifting , reaching, and throwing activities for painfree mobility. STG Duration 10/17/19 (10/11/19: MET GOAL) Is Project Manager Goal (LTG) Improve core stability with pt able to maintain transverse abdominus contraction during above stated functional activities. LTG Duration 11/11/19 (10/11/19: MET GOAL) Three Impairment Low back pain with sit to stand transfers after prolonged sitting Short Term Goal (STG) Pt will demonstrate improved sitting posture and postural awareness with ability to sit 30 minutes without onset of pain transferring to standing. STG Duration 10/14/19 (10/04/19: MET GOAL) Skilled Nursing Goal (LTG) Improve posture in standing with lessening of C-curve ( apex on L) and pt able to exercise and perform work duties with awareness of proper body mechanics and posture. (9/1/20: Today for first time pt shows no C-Curve of mid> low back). LTG Duration 11/11/19 (10/25/19: Improving) Two Impairment Decreased hip mobility (Ext lacks 10 lokesh, ER 20 L, 35 R, IR 25 L, 45 R) Short Term Goal (STG) Pt will be educated in a self care hip flexibility home program of hip stretches. (09/30/19: HEP issued for hip flexors, 10/07/19: HEP issued for hip rotators) STG Duration 09/23/19 (10/11/19: MET GOAL) Is Project Manager Goal (LTG) Improve hip mobility for movement painfree in the anterior hip and low back (hip Ext 8 deg's, ER 40 deg's, IR 45 deg's bilaterally) LTG Duration 11/11/19 One Impairment Pt lacks appropriate self care HEP. Skilled Nursing Goal (LTG) Pt will be independent and safe with a self care HEP to prevent onset of back pain. LTG Duration 11/11/19 (10/25/19: Progressing) Progress Towards Goals Progress Towards Goals Progressing Toward Goals Assessment Summary Assessment Pt was very receptive to recommendations for sitting in trunk with improved awareness of proper sitting posture. Pt has very slight C-Curve with apex on the left ~T3-T5, pt may benefit from IFES to improve mobility and normalize posture. Recheck hip ER/IR mobility. Physical Therapy Plan Frequency and Duration Frequency of Treatment 2x/Week Plan of Care Start Date 09/09/19 Plan of Care End Date 12/09/19 Next Visit Focus/Plan Next Note Type Treatment Note Next Visit Plan Progress scoliosis program. Cont back strengthening (mid back): rotation R, R hip AB & shoulder flex, and trunk L SB. JMT to lower thoracic and lumbar spine, Progress HEP of low back stretches (trunk R rot, L SB), & core strengthening (R paraspinals), Modalities of E-Stim to the back or ice to anterior hips/ LB if needed.
--- NOTE | 2019-11-17 13:55 | PT.OTN ---
Current Diagnoses Dorsalgia, unspecified (11/17/19) Other muscle spasm (11/17/19) Abnormal posture (11/17/19) Physical Therapy Treatment Note PT-OP-A Visit Information Start: 09/08/19 17:39 Freq: Status: Active Protocol: Document 11/17/19 12:48 LRN (Rec: 11/17/19 13:39 LRN [id number]) Out-Patient Physical Therapy Visit Information Visit Information Visit Type Treatment Note Visit Start Time 12:48 Visit Stop Time 13:35 Total Visit Minutes 47 Visit Number 15 Evaluation Information Evaluation Date 09/09/19 Precautions Precautions Per history review: Plantar fasciitis, essential HTN, L4- L5 surgery thought to be a fusion. 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 9 yr old daughter and 11 yr old son. PT-OP-C Subjective Start: 09/08/19 17:39 Freq: Status: Active Protocol: Document 11/17/19 12:48 LRN (Rec: 11/17/19 13:39 LRN [id number]) OP-PT Subjective Patient Comments Patient Comments Started a light jog/walk program with son without problems. Past week has had anterior hip pain and back pain that took a few days to alleviate. Today is great. Changed the office chair. Isn't doing all ex's but some. PT-OP-G Mobility & Gait Start: 09/08/19 17:39 Freq: Status: Active Protocol: Document 09/09/19 08:18 LRN (Rec: 09/09/19 17:24 LRN [id number]) OP Mobility Evaluation Bed Mobility Rolling Independent Supine to and from Sit Independent Transfers Sit to Stand With difficulty leaning to L side and holds his L low back. PT-OP-J Posture/Palpation/Skin Start: 09/08/19 17:39 Freq: Status: Active Protocol: Document 09/09/19 08:18 LRN (Rec: 09/09/19 17:24 LRN [id number]) Posture Evaluation Comments Posture Comments Standing the pt has a C-curve of his back with the apex on the left at ~T6. His R Iliac crest is high. Palpation Assessment Location L lower T/S Palpation Location T6-T8 Palpation Findings Soft Tissue Tightness,Muscle Guarding,Tenderness L Lumbar paraspinals Palpation Location L lumbar paraspinals Palpation Findings Soft Tissue Tightness,Muscle Guarding,Tenderness PT-OP-K Range of Motion Start: 09/08/19 17:39 Freq: Status: Active Protocol: Document 11/17/19 12:48 LRN (Rec: 11/17/19 13:39 LRN [id number]) Hip Goniometric Range of Motion Hip Right Passive Straight Leg Raise 90 Internal Rotation 30 External Rotation 60 Left Passive Straight Leg Raise 88 Internal Rotation 30 External Rotation 60 PT-OP-L Special Tests Start: 09/08/19 17:39 Freq: Status: Active Protocol: Document 11/17/19 12:48 LRN (Rec: 11/17/19 13:39 LRN [id number]) Special Tests Lumbar Spine Special Tests Straight Leg Raise Test Results Right 90 degs, left 88 deg's. PT-OP-M Strength Start: 09/08/19 17:39 Freq: Status: Active Protocol: Document 09/09/19 08:18 LRN (Rec: 09/09/19 17:24 LRN [id number]) Trunk Strength Trunk Manual Muscle Testing Testing Position Supine Flexion 5 Normal Hip Strength Hip Manual Muscle Testing Right Flexion (L2) 4+ Good+ Adduction 3+ Fair+ Comments Generally 5/5 except as indicated above. Left Comments Generally 5/5 except as indicated above. PT-OP-Q Treatments Start: 09/08/19 17:39 Freq: Status: Active Protocol: Document 11/17/19 12:48 LRN (Rec: 11/17/19 13:39 LRN [id number]) Therapeutic Exercises Supine Exercises PROM Hip ER/IR Supine Exercise Name PROM hip ER/IR Side bilateral Reps/Minutes 8' Comments Stretch f/b ROM measurements Hamstring/LE neural stretch Supine Exercise Name Hamstring/LE neural stretch Side bilateral Reps/Minutes 6' Comments Extra time for phys & v cuing to perform correctly during stretch Fig 4 stretch Supine Exercise Name Fig 4 stretch immediately f/b active stretch Side bilateral Reps/Minutes 3' Comments Determined max stretch tolerated, used pillow roll under thigh for support Hip flexor stretch Supine Exercise Name Hip Flexor stretch, f/b active stretch Side bilateral Reps/Minutes 3' Comments Initial quick review needed. Sidelying Exercises Positional stretch Sidelying Exercise Name L sidelie with folded pillow from underarm to upper T/S Reps/Minutes 3' Other Exercises Trunk rot stretch Other Exercise Name Trunk R rot stretch (L arm reaching R) Reps/Minutes 4' Child pose Other Exercise Name Modified Child pose. Reps/Minutes 3' Comments Extra time for training to do ex properly Manual Therapy Treatment Soft Tissue Mobilization L thoracic/lumbar paraspinals Body Location L lower thoracic and upper lumbar paraspinals. Mobilization Type Strumming,Sustained Pressure Intensity/Depth Moderate Body Position Prone PT-OP-R Modalities Start: 09/08/19 17:39 Freq: Status: Active Protocol: Document 10/18/19 08:16 LRN (Rec: 10/18/19 09:05 LRN [id number]) Electric Stimulation Electric Stimulation Interferential Current (IFC) Body Location Back (centered @ L2-L3) Duration (Minutes) 15 Intensity 22 Target/Sweep Sweep Patient Position Prone Combined With Heat/Cold Hot Pack Hot Pack/Cold Pack Treatment Hot Pack Location Back>LB Patient Position Prone Treatment Duration (minutes) 15 PT-OP-T Assessment and Plan Start: 09/08/19 17:39 Freq: Status: Active Protocol: Document 11/17/19 12:48 LRN (Rec: 11/17/19 13:39 LRN [id number]) Physical Therapy Assessment Goals Four Impairment Pain with traveling/work activities due to poor body awareness & core stab. Short Term Goal (STG) Pt will be educated in proper sitting posture, proper body mechanics for sitting, lifting , reaching, and throwing activities for painfree mobility. STG Duration 10/17/19 (10/11/19: MET GOAL) Usp Goal (LTG) Improve core stability with pt able to maintain transverse abdominus contraction during above stated functional activities. LTG Duration 11/11/19 (10/11/19: MET GOAL) Three Impairment Low back pain with sit to stand transfers after prolonged sitting Short Term Goal (STG) Pt will demonstrate improved sitting posture and postural awareness with ability to sit 30 minutes without onset of pain transferring to standing. STG Duration 10/14/19 (10/04/19: MET GOAL) Usp Goal (LTG) Improve posture in standing with lessening of C-curve ( apex on L) and pt able to exercise and perform work duties with awareness of proper body mechanics and posture. (10/25/19: Today for first time pt shows no C-Curve of mid> low back). LTG Duration 11/11/19 (10/25/19: Improving) Two Impairment Decreased hip mobility (Ext lacks 10 lokesh, ER 20 L, 35 R, IR 25 L, 45 R) Short Term Goal (STG) Pt will be educated in a self care hip flexibility home program of hip stretches. (09/30/19: HEP issued for hip flexors, 10/07/19: HEP issued for hip rotators) STG Duration 09/23/19 (10/11/19: MET GOAL) Usp Goal (LTG) Improve hip mobility for movement painfree in the anterior hip and low back (hip Ext 8 deg's, ER 40 deg's, IR 45 deg's bilaterally) LTG Duration 11/11/19 (11/17/19: Hip mobility ER 60 deg's, IR 30 deg's bilaterally) One Impairment Pt lacks appropriate self care HEP. Household Assistant Goal (LTG) Pt will be independent and safe with a self care HEP to prevent onset of back pain. LTG Duration 11/11/19 (10/25/19: Progressing) Progress Towards Goals Progress Comments Improved PSLR bilaterally (90 deg's right, 88 deg's left). and pt now symmetrical in hip ER/IR mobility. Hip ER is 60 deg's, IR is 30 deg's. Assessment Summary Assessment Symmetrical SLR and hip rotation mobility. Spine appears straight, but tightness on L T/S paraspinals and R paraspinals are tight. Pt need flex/ext mobility of T/S. Physical Therapy Plan Frequency and Duration Frequency of Treatment 2x/Week Plan of Care Start Date 09/09/19 Plan of Care End Date 12/09/19 Next Visit Focus/Plan Next Note Type Treatment Note Next Visit Plan Add equipement strengthening if pt symmetrical. ?Progress scoliosis program. Cont back strengthening (mid back): rotation R, R hip AB & shoulder flex, and trunk L SB. If needed, JMT to lower thoracic and lumbar spine, Progress HEP of low back stretches (trunk R rot, L SB), & core strengthening (R paraspinals), Modalities of E-Stim to the back or ice to anterior hips/ LB if needed.
--- NOTE | 2019-11-24 17:28 | PT.OTN ---
Current Diagnoses Dorsalgia, unspecified (11/24/19) Other muscle spasm (11/24/19) Abnormal posture (11/24/19) Physical Therapy Treatment Note PT-OP-A Visit Information Start: 09/08/19 17:39 Freq: Status: Active Protocol: Document 11/24/19 08:15 LRN (Rec: 11/24/19 09:08 LRN [id number]) Out-Patient Physical Therapy Visit Information Visit Information Visit Type Treatment Note Visit Note 5 after last PN Visit Start Time 08:14 Visit Stop Time 09:06 Total Visit Minutes 52 Visit Number 16 Evaluation Information Evaluation Date 09/09/19 Precautions Precautions Per history review: Plantar fasciitis, essential HTN, L4- L5 surgery thought to be a fusion. 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 9 yr old daughter and 11 yr old son. PT-OP-C Subjective Start: 09/08/19 17:39 Freq: Status: Active Protocol: Document 11/24/19 08:15 LRN (Rec: 11/24/19 09:08 LRN [id number]) OP-PT Subjective Patient Comments Patient Comments States he has managed his pain . He id a bit confused with the ex he is supposed to focus on and found 2x/week helpful. He has started doing walk/ runs with his son. Changed chairs at work and getting up every 1/2 hour, but can sit longer without pain. He does stretches when he feels the pinch in the hips. PT-OP-G Mobility & Gait Start: 09/08/19 17:39 Freq: Status: Active Protocol: Document 09/09/19 08:18 LRN (Rec: 09/09/19 17:24 LRN [id number]) OP Mobility Evaluation Bed Mobility Rolling Independent Supine to and from Sit Independent Transfers Sit to Stand With difficulty leaning to L side and holds his L low back. PT-OP-J Posture/Palpation/Skin Start: 09/08/19 17:39 Freq: Status: Active Protocol: Document 09/09/19 08:18 LRN (Rec: 09/09/19 17:24 LRN [id number]) Posture Evaluation Comments Posture Comments Standing the pt has a C-curve of his back with the apex on the left at ~T6. His R Iliac crest is high. Palpation Assessment Location L lower T/S Palpation Location T6-T8 Palpation Findings Soft Tissue Tightness,Muscle Guarding,Tenderness L Lumbar paraspinals Palpation Location L lumbar paraspinals Palpation Findings Soft Tissue Tightness,Muscle Guarding,Tenderness PT-OP-K Range of Motion Start: 09/08/19 17:39 Freq: Status: Active Protocol: Document 11/17/19 12:48 LRN (Rec: 11/17/19 13:39 LRN [id number]) Hip Goniometric Range of Motion Hip Right Passive Straight Leg Raise 90 Internal Rotation 30 External Rotation 60 Left Passive Straight Leg Raise 88 Internal Rotation 30 External Rotation 60 PT-OP-L Special Tests Start: 09/08/19 17:39 Freq: Status: Active Protocol: Document 11/17/19 12:48 LRN (Rec: 11/17/19 13:39 LRN [id number]) Special Tests Lumbar Spine Special Tests Straight Leg Raise Test Results Right 90 degs, left 88 deg's. PT-OP-M Strength Start: 09/08/19 17:39 Freq: Status: Active Protocol: Document 09/09/19 08:18 LRN (Rec: 09/09/19 17:24 LRN [id number]) Trunk Strength Trunk Manual Muscle Testing Testing Position Supine Flexion 5 Normal Hip Strength Hip Manual Muscle Testing Right Flexion (L2) 4+ Good+ Adduction 3+ Fair+ Comments Generally 5/5 except as indicated above. Left Comments Generally 5/5 except as indicated above. PT-OP-Q Treatments Start: 09/08/19 17:39 Freq: Status: Active Protocol: Document 11/24/19 08:15 LRN (Rec: 11/24/19 09:08 LRN [id number]) Cardio Equipment Treadmill Duration (Minutes) 8 Speed 2.6 Incline 0 Therapeutic Exercises Supine Exercises Hamstring/LE neural stretch Supine Exercise Name Hamstring/LE neural stretch Side bilateral Reps/Minutes 6' Comments Extra time for phys & v cuing to perform correctly during stretch Piriformis stretch Supine Exercise Name Knee to opposite shoulder and Cross legged KTC Side left Reps/Minutes 4' Comments Phys & v cuing needed to get proper stretch Fig 4 stretch Supine Exercise Name Fig 4 stretch immediately f/b active stretch Side bilateral Reps/Minutes 3' Comments Determined max stretch tolerated, used pillow roll under thigh for support Hip flexor stretch Supine Exercise Name Hip Flexor stretch, f/b active stretch Side bilateral Reps/Minutes 3' Comments Initial quick review needed. Standing Exercises C-curve ex Standing Exercise Name Standing L SB stretch, lift R arm lift, R rot, & L hip AB Resistance lev 1 TBand Reps/Minutes 8' Other Exercises Trunk rot stretch Other Exercise Name Trunk R rot stretch (L arm reaching R) Reps/Minutes 4' Child pose Other Exercise Name Modified Child pose. Reps/Minutes 3' Comments Extra time for training to do ex properly Self-Care/Home Management Treatment Education Other Education Discussed & reviewed at length : Proper sitting posture Changes in positioning while at work Exercise routine with progressive running Sitting in trunk Awareness of standing posture for specific strengthening of scoliosis correction. Activities Self-Care/Home Management Activities Developed ex routine for pt and issued/reviewed. PT-OP-R Modalities Start: 09/08/19 17:39 Freq: Status: Active Protocol: Document 10/18/19 08:16 LRN (Rec: 10/18/19 09:05 LRN [id number]) Electric Stimulation Electric Stimulation Interferential Current (IFC) Body Location Back (centered @ L2-L3) Duration (Minutes) 15 Intensity 22 Target/Sweep Sweep Patient Position Prone Combined With Heat/Cold Hot Pack Hot Pack/Cold Pack Treatment Hot Pack Location Back>LB Patient Position Prone Treatment Duration (minutes) 15 PT-OP-T Assessment and Plan Start: 09/08/19 17:39 Freq: Status: Active Protocol: Document 11/24/19 08:15 LRN (Rec: 11/24/19 09:08 LRN [id number]) Physical Therapy Assessment Goals Four Impairment Pain with traveling/work activities due to poor body awareness & core stab. Short Term Goal (STG) Pt will be educated in proper sitting posture, proper body mechanics for sitting, lifting , reaching, and throwing activities for painfree mobility. STG Duration 10/17/19 (10/11/19: MET GOAL) Senior Care Goal (LTG) Improve core stability with pt able to maintain transverse abdominus contraction during above stated functional activities. LTG Duration 11/11/19 (10/11/19: MET GOAL) Three Impairment Low back pain with sit to stand transfers after prolonged sitting Short Term Goal (STG) Pt will demonstrate improved sitting posture and postural awareness with ability to sit 30 minutes without onset of pain transferring to standing. STG Duration 10/14/19 (10/04/19: MET GOAL) Senior Care Goal (LTG) Improve posture in standing with lessening of C-curve ( apex on L) and pt able to exercise and perform work duties with awareness of proper body mechanics and posture. (10/25/19: Today for first time pt shows no C-Curve of mid> low back). LTG Duration 11/11/19 (11/24/19: Improving, small curvature T3-T5) Two Impairment Decreased hip mobility (Ext lacks 10 lokesh, ER 20 L, 35 R, IR 25 L, 45 R) Short Term Goal (STG) Pt will be educated in a self care hip flexibility home program of hip stretches. 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 Senior Care Goal (LTG) Pt will be independent and safe with a self care HEP to prevent onset of back pain. LTG Duration 11/11/19 (10/25/19: Progressing) Assessment Summary Assessment Recheck hip mobility (Goal 2). Pt has mild decreased ms tone of R mid paraspinals and L lumbar paraspinals. He has a slight curvature at ~T3-T5. Pt has onset of anterior hip pain with prolonged sitting, but has been able to manage his pain with stretches. The pt is needs to feel independent with his HEP and progression of his trunk rot/ SB and core strengthening prior to DC. Physical Therapy Plan Frequency and Duration Frequency of Treatment 2x/Week Plan of Care Start Date 09/09/19 Plan of Care End Date 12/09/19 Next Visit Focus/Plan Next Note Type Treatment Note Next Visit Plan Add equipment strengthening if pt symmetrical. Progress scoliosis program as needed. Cont back strengthening (mid back): rotation R, L hip AB & R shoulder flex; and trunk L SB. If needed, JMT to lower thoracic and lumbar spine, Progress HEP trunk R rot (PNF) , L SB, & core strengthening ( R upper paraspinals and L lumbar paraspinals), Modalities of E-Stim to the back or ice to anterior hips/ LB if needed.
--- NOTE | 2019-12-01 18:09 | PT.OTN ---
Current Diagnoses Dorsalgia, unspecified (12/01/19) Other muscle spasm (12/01/19) Abnormal posture (12/01/19) Physical Therapy Treatment Note PT-OP-A Visit Information Start: 09/08/19 17:39 Freq: Status: Active Protocol: Document 12/01/19 08:16 LRN (Rec: 12/01/19 09:03 LRN [id number]) Out-Patient Physical Therapy Visit Information Visit Information Visit Type Treatment Note Visit Start Time 08:16 Visit Stop Time 09:02 Total Visit Minutes 46 Visit Number 17 Evaluation Information Evaluation Date 09/09/19 Precautions Precautions Per history review: Plantar fasciitis, essential HTN, L4- L5 surgery thought to be a fusion. 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 9 yr old daughter and 11 yr old son. PT-OP-C Subjective Start: 09/08/19 17:39 Freq: Status: Active Protocol: Document 12/01/19 08:16 LRN (Rec: 12/01/19 09:03 LRN [id number]) OP-PT Subjective Patient Comments Patient Comments Slight pain in the front of the hips waking this morning. States on 11/25/19 he was lifting a heavy chair ( twisting lift) and felt a pop in his mid-back f/b pain for a few days. He use over the counter anti-inflam meds and ice to the back. PT-OP-G Mobility & Gait Start: 09/08/19 17:39 Freq: Status: Active Protocol: Document 09/09/19 08:18 LRN (Rec: 09/09/19 17:24 LRN [id number]) OP Mobility Evaluation Bed Mobility Rolling Independent Supine to and from Sit Independent Transfers Sit to Stand With difficulty leaning to L side and holds his L low back. PT-OP-J Posture/Palpation/Skin Start: 09/08/19 17:39 Freq: Status: Active Protocol: Document 09/09/19 08:18 LRN (Rec: 09/09/19 17:24 LRN [id number]) Posture Evaluation Comments Posture Comments Standing the pt has a C-curve of his back with the apex on the left at ~T6. His R Iliac crest is high. Palpation Assessment Location L lower T/S Palpation Location T6-T8 Palpation Findings Soft Tissue Tightness,Muscle Guarding,Tenderness L Lumbar paraspinals Palpation Location L lumbar paraspinals Palpation Findings Soft Tissue Tightness,Muscle Guarding,Tenderness PT-OP-K Range of Motion Start: 09/08/19 17:39 Freq: Status: Active Protocol: Document 11/17/19 12:48 LRN (Rec: 11/17/19 13:39 LRN [id number]) Hip Goniometric Range of Motion Hip Right Passive Straight Leg Raise 90 Internal Rotation 30 External Rotation 60 Left Passive Straight Leg Raise 88 Internal Rotation 30 External Rotation 60 PT-OP-L Special Tests Start: 09/08/19 17:39 Freq: Status: Active Protocol: Document 11/17/19 12:48 LRN (Rec: 11/17/19 13:39 LRN [id number]) Special Tests Lumbar Spine Special Tests Straight Leg Raise Test Results Right 90 degs, left 88 deg's. PT-OP-M Strength Start: 09/08/19 17:39 Freq: Status: Active Protocol: Document 09/09/19 08:18 LRN (Rec: 09/09/19 17:24 LRN [id number]) Trunk Strength Trunk Manual Muscle Testing Testing Position Supine Flexion 5 Normal Hip Strength Hip Manual Muscle Testing Right Flexion (L2) 4+ Good+ Adduction 3+ Fair+ Comments Generally 5/5 except as indicated above. Left Comments Generally 5/5 except as indicated above. PT-OP-Q Treatments Start: 09/08/19 17:39 Freq: Status: Active Protocol: Document 12/01/19 08:16 LRN (Rec: 12/01/19 09:03 LRN [id number]) Cardio Equipment Treadmill Duration (Minutes) 6 Speed 2.6 Incline 0 Therapeutic Exercises Supine Exercises Low back stretch Supine Exercise Name Marcella Pose Reps/Minutes 4' Hip flexor stretch Supine Exercise Name Hip Flexor stretch, f/b active stretch Side bilateral Reps/Minutes 8' Comments Extra time for positioning properly in trunk and pelvis. Standing Exercises Shoulder flex Standing Exercise Name End-range lokesh shoulder flex [place] hold Side bilateral Reps/Minutes 10x Hip AB Standing Exercise Name Hip AB Side bilateral Reps/Minutes 3' Trunk rotation Standing Exercise Name Trunk R rot Side right Resistance Lev 2 TB Anterior Hip Stretch Standing Exercise Name Demonstrated anterior hip stretch with lower leg on support Reps/Minutes 2' Other Exercises Kneeling Hip flexor stretch Other Exercise Name Hip Flexor stretch Reps/Minutes 8' Comments Extra time for positioning properly in trunk and pelvis. Self-Care/Home Management Treatment Education Other Education Reviewed at length proper lifting and moving techniques. Discussed and educated pt in ongoing HEP with focus of R rot strengthening. I/S pt in strengthening with both sides, changing home program. PT-OP-R Modalities Start: 09/08/19 17:39 Freq: Status: Active Protocol: Document 10/18/19 08:16 LRN (Rec: 10/18/19 09:05 LRN [id number]) Electric Stimulation Electric Stimulation Interferential Current (IFC) Body Location Back (centered @ L2-L3) Duration (Minutes) 15 Intensity 22 Target/Sweep Sweep Patient Position Prone Combined With Heat/Cold Hot Pack Hot Pack/Cold Pack Treatment Hot Pack Location Back>LB Patient Position Prone Treatment Duration (minutes) 15 PT-OP-T Assessment and Plan Start: 09/08/19 17:39 Freq: Status: Active Protocol: Document 12/01/19 08:16 LRN (Rec: 12/01/19 09:03 LRN [id number]) Physical Therapy Assessment Goals Four Impairment Pain with traveling/work activities due to poor body awareness & core stab. Short Term Goal (STG) Pt will be educated in proper sitting posture, proper body mechanics for sitting, lifting , reaching, and throwing activities for painfree mobility. STG Duration 10/17/19 (10/11/19: MET GOAL) Work Adjustment Instructor Goal (LTG) Improve core stability with pt able to maintain transverse abdominus contraction during above stated functional activities. LTG Duration 11/11/19 (10/11/19: MET GOAL) Three Impairment Low back pain with sit to stand transfers after prolonged sitting Short Term Goal (STG) Pt will demonstrate improved sitting posture and postural awareness with ability to sit 30 minutes without onset of pain transferring to standing. STG Duration 10/14/19 (10/04/19: MET GOAL) Work Adjustment Instructor Goal (LTG) Improve posture in standing with lessening of C-curve ( apex on L) and pt able to exercise and perform work duties with awareness of proper body mechanics and posture. (10/25/19: Today for first time pt shows no C-Curve of mid> low back). LTG Duration 11/11/19 (11/24/19: Improving, small curvature T3-T5) Two Impairment Decreased hip mobility (Ext lacks 10 lokesh, ER 20 L, 35 R, IR 25 L, 45 R) Short Term Goal (STG) Pt will be educated in a self care hip flexibility home program of hip stretches. (09/30/19: HEP issued for hip flexors, 10/07/19: HEP issued for hip rotators) STG Duration 09/23/19 (10/11/19: MET GOAL) [employer]fp Goal (LTG) Improve hip mobility for movement painfree in the anterior hip and low back (hip Ext 8 deg's, ER 40 deg's, IR 45 deg's bilaterally) LTG Duration 11/11/19 (11/17/19: Hip mobility ER 60 deg's, IR 30 deg's bilaterally) One Impairment Pt lacks appropriate self care HEP. Work Adjustment Instructor Goal (LTG) Pt will be independent and safe with a self care HEP to prevent onset of back pain. LTG Duration 11/11/19 (10/25/19: Progressing) Assessment Summary Assessment Pt's back appears in neutral although in saggital plane T3- T5 & T9-T12 is anterior, except posterior at T11. His left T4 through T11 paraspinals are guarding and tight. His head slight left tilted and shifted left. Pt is stabilizing in the spine. Physical Therapy Plan Frequency and Duration Frequency of Treatment 2x/Week Plan of Care Start Date 09/09/19 Plan of Care End Date 12/09/19 Next Visit Focus/Plan Next Note Type Progress Note Next Visit Plan Reassess for PN and new POC. Monitor scoliosis. Cont back strengthening (mid back): rotation R, L hip AB & R shoulder flex; and trunk L SB. Add equipment strengthening if pt symmetrical. If needed , JMT to lower thoracic and lumbar spine, Progress HEP trunk R rot (PNF) , L SB, & core strengthening ( R upper paraspinals and L lumbar paraspinals), Modalities of E-Stim to the back or ice to anterior hips/ LB if needed.
--- NOTE | 2019-12-08 13:53 | PT.OTN ---
Current Diagnoses Dorsalgia, unspecified (12/08/19) Other muscle spasm (12/08/19) Abnormal posture (12/08/19) Physical Therapy Treatment Note PT-OP-A Visit Information Start: 09/08/19 17:39 Freq: Status: Active Protocol: Document 12/08/19 08:17 LRN (Rec: 12/08/19 09:02 LRN [id number]) Out-Patient Physical Therapy Visit Information Visit Information Visit Type Progress Note Visit Note 8 visits after PN Visit Start Time 08:17 Visit Stop Time 09:01 Total Visit Minutes 46 Visit Number 18 Evaluation Information Evaluation Date 09/09/19 Precautions Precautions Per history review: Plantar fasciitis, essential HTN, L4- L5 surgery thought to be a fusion. 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 9 yr old daughter and 11 yr old son. PT-OP-C Subjective Start: 09/08/19 17:39 Freq: Status: Active Protocol: Document 12/08/19 08:17 LRN (Rec: 12/08/19 09:02 LRN [id number]) OP-PT Subjective Patient Comments Patient Comments Since last incident of twisting, has soreness across the back. Doing Hamstring stretching and thinks he pulled his muscle. Running yesterday, both lower legs were sore. Worried about stretching the hamstrings. PT-OP-G Mobility & Gait Start: 09/08/19 17:39 Freq: Status: Active Protocol: Document 09/09/19 08:18 LRN (Rec: 09/09/19 17:24 LRN [id number]) OP Mobility Evaluation Bed Mobility Rolling Independent Supine to and from Sit Independent Transfers Sit to Stand With difficulty leaning to L side and holds his L low back. PT-OP-J Posture/Palpation/Skin Start: 09/08/19 17:39 Freq: Status: Active Protocol: Document 09/09/19 08:18 LRN (Rec: 09/09/19 17:24 LRN [id number]) Posture Evaluation Comments Posture Comments Standing the pt has a C-curve of his back with the apex on the left at ~T6. His R Iliac crest is high. Palpation Assessment Location L lower T/S Palpation Location T6-T8 Palpation Findings Soft Tissue Tightness,Muscle Guarding,Tenderness L Lumbar paraspinals Palpation Location L lumbar paraspinals Palpation Findings Soft Tissue Tightness,Muscle Guarding,Tenderness PT-OP-K Range of Motion Start: 09/08/19 17:39 Freq: Status: Active Protocol: Document 12/08/19 08:17 LRN (Rec: 12/08/19 09:02 LRN [id number]) Lumbar Spine Range of Motion Lumbar Spine Active Degrees Flexion 65 Extension 15 Rotation Left 30 Rotation Right 30 Lateral Flexion Left 20 Lateral Flexion Right 15 Hip Goniometric Range of Motion Hip Right Passive Straight Leg Raise 90 Internal Rotation 40 External Rotation 60 Left Passive Straight Leg Raise 90 Internal Rotation 40 External Rotation 60 PT-OP-L Special Tests Start: 09/08/19 17:39 Freq: Status: Active Protocol: Document 11/17/19 12:48 LRN (Rec: 11/17/19 13:39 LRN [id number]) Special Tests Lumbar Spine Special Tests Straight Leg Raise Test Results Right 90 degs, left 88 deg's. PT-OP-M Strength Start: 09/08/19 17:39 Freq: Status: Active Protocol: Document 09/09/19 08:18 LRN (Rec: 09/09/19 17:24 LRN [id number]) Trunk Strength Trunk Manual Muscle Testing Testing Position Supine Flexion 5 Normal Hip Strength Hip Manual Muscle Testing Right Flexion (L2) 4+ Good+ Adduction 3+ Fair+ Comments Generally 5/5 except as indicated above. Left Comments Generally 5/5 except as indicated above. PT-OP-Q Treatments Start: 09/08/19 17:39 Freq: Status: Active Protocol: Document 12/08/19 08:17 LRN (Rec: 12/08/19 09:02 LRN [id number]) Cardio Equipment Treadmill Duration (Minutes) 8 Speed 2.6 Incline 0 Therapeutic Exercises Supine Exercises PROM Hip ER/IR Supine Exercise Name PROM hip ER/IR/SLR Hamstring/LE neural stretch Supine Exercise Name Hamstring/LE neural stretch Side bilateral Reps/Minutes 6' Comments Extra time for phys & v cuing to perform correctly during stretch Piriformis stretch Supine Exercise Name Knee to opposite shoulder and Cross legged KTC Side left Reps/Minutes 4' Comments Phys & v cuing needed to get proper stretch Hip flexor stretch Supine Exercise Name Hip Flexor stretch, f/b active stretch Side bilateral Comments Some extra time for positioning properly in trunk and pelvis. Self-Care/Home Management Treatment Education Other Education Brief anatomy review and discussed proper exercise with caution of LB injury possiblity with history of back surgery. PT-OP-R Modalities Start: 09/08/19 17:39 Freq: Status: Active Protocol: Document 10/18/19 08:16 LRN (Rec: 10/18/19 09:05 LRN [id number]) Electric Stimulation Electric Stimulation Interferential Current (IFC) Body Location Back (centered @ L2-L3) Duration (Minutes) 15 Intensity 22 Target/Sweep Sweep Patient Position Prone Combined With Heat/Cold Hot Pack Hot Pack/Cold Pack Treatment Hot Pack Location Back>LB Patient Position Prone Treatment Duration (minutes) 15 PT-OP-T Assessment and Plan Start: 09/08/19 17:39 Freq: Status: Active Protocol: Document 12/08/19 08:17 LRN (Rec: 12/08/19 09:02 LRN [id number]) Physical Therapy Assessment Goals Four Impairment Pain with traveling/work activities due to poor body awareness & core stab. Short Term Goal (STG) Pt will be educated in proper sitting posture, proper body mechanics for sitting, lifting , reaching, and throwing activities for painfree mobility. STG Duration 10/17/19 (10/11/19: MET GOAL) Penitentiary Goal (LTG) Improve core stability with pt able to maintain transverse abdominus contraction during above stated functional activities. LTG Duration 11/11/19 (10/11/19: MET GOAL) Three Impairment Low back pain with sit to stand transfers after prolonged sitting Short Term Goal (STG) Pt will demonstrate improved sitting posture and postural awareness with ability to sit 30 minutes without onset of pain transferring to standing. STG Duration 10/14/19 (10/04/19: MET GOAL) Beach Expert Goal (LTG) Improve posture in standing with lessening of C-curve ( apex on L) and pt able to exercise and perform work duties with awareness of proper body mechanics and posture. (No C-Curve of mid>low back on 10/25/19; Very mild C-Curve @ L3 w/apex on L). LTG Duration 11/11/19 (12/08/19: Improving , small curvature L2-4, head tilt L) Two Impairment Decreased hip mobility (Ext lacks 10 lokesh, ER 20 L, 35 R, IR 25 L, 45 R) Short Term Goal (STG) Pt will be educated in a self care hip flexibility home program of hip stretches. (09/30/19: HEP issued for hip flexors, 10/07/19: HEP issued for hip rotators) STG Duration 09/23/19 (10/11/19: MET GOAL) Penitentiary Goal (LTG) Improve hip mobility for movement painfree in the anterior hip and low back (hip Ext 8 deg's, ER 40 deg's, IR 45 deg's bilaterally). LTG Duration 11/11/19 (12/08/19: Hip mobility ER 60 deg's lokesh, IR 40 deg's bilaterally) One Impairment Pt lacks appropriate self care HEP. [employer] Expert Goal (LTG) Pt will be independent and safe with a self care HEP to prevent onset of back pain. LTG Duration 11/11/19 (10/25/19: Progressing) Assessment Summary Assessment Pt has episodes of mild flare ups but appears to be managing thus far with stretches. He is advancing his running program, and is experiencing onset of bilateral hamstring muscle pull and lower calf pain that may be low back related. Pt cautioned to monitor symptoms carefully and to discontinue running if symptoms worsen. Pt has improved with hip mobility but is mildly tight with hip IR mobility, and to a lesser extent ER. His hamstring mobility is normal at 90 deg's and pt cautioned not to overstretch. Hi back appears to be almost neutral with mild curvature at his location of discomfort today (~L3). His back discomfort location continues to be variable in nature. Pt needing education on self care 1x/month for 1-2 months. Physical Therapy Plan Frequency and Duration Frequency of Treatment 1/month Plan of Care Start Date 12/08/19 Plan of Care End Date 02/23/20 Next Visit Focus/Plan Next Note Type Treatment Note Next Visit Plan Progress pt towards independent care in 2 months. Recheck posture, Scoliosis, back involvement, hip mobility and pain complaints. Progress pt towards independent care in 2 months.
--- NOTE | 2019-12-08 14:03 | PT.OTN ---
Current Diagnoses Dorsalgia, unspecified (12/08/19) Other muscle spasm (12/08/19) Abnormal posture (12/08/19) Physical Therapy Treatment Note PT-OP-A Visit Information Start: 09/08/19 17:39 Freq: Status: Active Protocol: Document 12/08/19 08:17 LRN (Rec: 12/08/19 09:02 LRN [id number]) Out-Patient Physical Therapy Visit Information Visit Information Visit Type Progress Note Visit Note 8 visits after PN Visit Start Time 08:17 Visit Stop Time 09:01 Total Visit Minutes 46 Visit Number 18 Evaluation Information Evaluation Date 09/09/19 Precautions Precautions Per history review: Plantar fasciitis, essential HTN, L4- L5 surgery thought to be a fusion. 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 9 yr old daughter and 11 yr old son. PT-OP-C Subjective Start: 09/08/19 17:39 Freq: Status: Active Protocol: Document 12/08/19 08:17 LRN (Rec: 12/08/19 09:02 LRN [id number]) OP-PT Subjective Patient Comments Patient Comments Since last incident of twisting, has soreness across the back. Doing Hamstring stretching and thinks he pulled his muscle. Running yesterday, both lower legs were sore. Worried about stretching the hamstrings. Patient Questionnaires Lower Extremity Functional Scale LEFS Score 73 LEFS Impairment 1 to 19% Impaired (Score 63-79 ) OP-PT Pain Assessment Location Low back Pain Location Details Low back Intensity 2 Scale Used Numeric (0 - 10) PT-OP-G Mobility & Gait Start: 09/08/19 17:39 Freq: Status: Active Protocol: Document 09/09/19 08:18 LRN (Rec: 09/09/19 17:24 LRN [id number]) OP Mobility Evaluation Bed Mobility Rolling Independent Supine to and from Sit Independent Transfers Sit to Stand With difficulty leaning to L side and holds his L low back. PT-OP-J Posture/Palpation/Skin Start: 09/08/19 17:39 Freq: Status: Active Protocol: Document 09/09/19 08:18 LRN (Rec: 09/09/19 17:24 LRN [id number]) Posture Evaluation Comments Posture Comments Standing the pt has a C-curve of his back with the apex on the left at ~T6. His R Iliac crest is high. Palpation Assessment Location L lower T/S Palpation Location T6-T8 Palpation Findings Soft Tissue Tightness,Muscle Guarding,Tenderness L Lumbar paraspinals Palpation Location L lumbar paraspinals Palpation Findings Soft Tissue Tightness,Muscle Guarding,Tenderness PT-OP-K Range of Motion Start: 09/08/19 17:39 Freq: Status: Active Protocol: Document 12/08/19 08:17 LRN (Rec: 12/08/19 09:02 LRN [id number]) Lumbar Spine Range of Motion Lumbar Spine Active Degrees Flexion 65 Extension 15 Rotation Left 30 Rotation Right 30 Lateral Flexion Left 20 Lateral Flexion Right 15 Hip Goniometric Range of Motion Hip Right Passive Straight Leg Raise 90 Internal Rotation 40 External Rotation 60 Left Passive Straight Leg Raise 90 Internal Rotation 40 External Rotation 60 PT-OP-L Special Tests Start: 09/08/19 17:39 Freq: Status: Active Protocol: Document 11/17/19 12:48 LRN (Rec: 11/17/19 13:39 LRN [id number]) Special Tests Lumbar Spine Special Tests Straight Leg Raise Test Results Right 90 degs, left 88 deg's. PT-OP-M Strength Start: 09/08/19 17:39 Freq: Status: Active Protocol: Document 09/09/19 08:18 LRN (Rec: 09/09/19 17:24 LRN [id number]) Trunk Strength Trunk Manual Muscle Testing Testing Position Supine Flexion 5 Normal Hip Strength Hip Manual Muscle Testing Right Flexion (L2) 4+ Good+ Adduction 3+ Fair+ Comments Generally 5/5 except as indicated above. Left Comments Generally 5/5 except as indicated above. PT-OP-Q Treatments Start: 09/08/19 17:39 Freq: Status: Active Protocol: Document 12/08/19 08:17 LRN (Rec: 12/08/19 09:02 LRN [id number]) Cardio Equipment Treadmill Duration (Minutes) 8 Speed 2.6 Incline 0 Therapeutic Exercises Supine Exercises PROM Hip ER/IR Supine Exercise Name PROM hip ER/IR/SLR Hamstring/LE neural stretch Supine Exercise Name Hamstring/LE neural stretch Side bilateral Reps/Minutes 6' Comments Extra time for phys & v cuing to perform correctly during stretch Piriformis stretch Supine Exercise Name Knee to opposite shoulder and Cross legged KTC Side left Reps/Minutes 4' Comments Phys & v cuing needed to get proper stretch Hip flexor stretch Supine Exercise Name Hip Flexor stretch, f/b active stretch Side bilateral Comments Some extra time for positioning properly in trunk and pelvis. Self-Care/Home Management Treatment Education Other Education Brief anatomy review and discussed proper exercise with caution of LB injury possiblity with history of back surgery. PT-OP-R Modalities Start: 09/08/19 17:39 Freq: Status: Active Protocol: Document 10/18/19 08:16 LRN (Rec: 10/18/19 09:05 LRN [id number]) Electric Stimulation Electric Stimulation Interferential Current (IFC) Body Location Back (centered @ L2-L3) Duration (Minutes) 15 Intensity 22 Target/Sweep Sweep Patient Position Prone Combined With Heat/Cold Hot Pack Hot Pack/Cold Pack Treatment Hot Pack Location Back>LB Patient Position Prone Treatment Duration (minutes) 15 PT-OP-T Assessment and Plan Start: 09/08/19 17:39 Freq: Status: Active Protocol: Document 12/08/19 08:17 LRN (Rec: 12/08/19 09:02 LRN [id number]) Physical Therapy Assessment Goals Four Impairment Pain with traveling/work activities due to poor body awareness & core stab. Short Term Goal (STG) Pt will be educated in proper sitting posture, proper body mechanics for sitting, lifting , reaching, and throwing activities for painfree mobility. STG Duration 10/17/19 (10/11/19: MET GOAL) Alf Goal (LTG) Improve core stability with pt able to maintain transverse abdominus contraction during above stated functional activities. LTG Duration 11/11/19 (10/11/19: MET GOAL) Three Impairment Low back pain with sit to stand transfers after prolonged sitting Short Term Goal (STG) Pt will demonstrate improved sitting posture and postural awareness with ability to sit 30 minutes without onset of pain transferring to standing. STG Duration 10/14/19 (10/04/19: MET GOAL) Alf Goal (LTG) Improve posture in standing with lessening of C-curve ( apex on L) and pt able to exercise and perform work duties with awareness of proper body mechanics and posture. (No C-Curve of mid>low back on 10/25/19; Very mild C-Curve @ L3 w/apex on L). LTG Duration 11/11/19 (12/08/19: Improving , small curvature L2-4, head tilt L) Two Impairment Decreased hip mobility (Ext lacks 10 lokesh, ER 20 L, 35 R, IR 25 L, 45 R) Short Term Goal (STG) Pt will be educated in a self care hip flexibility home program of hip stretches. (09/30/19: HEP issued for hip flexors, 10/07/19: HEP issued for hip rotators) STG Duration 09/23/19 (10/11/19: MET GOAL) Alf Goal (LTG) Improve hip mobility for movement painfree in the anterior hip and low back (hip Ext 8 deg's, ER 40 deg's, IR 45 deg's bilaterally). LTG Duration 11/11/19 (12/08/19: Hip mobility ER 60 deg's lokesh, IR 40 deg's bilaterally) One Impairment Pt lacks appropriate self care HEP. Asset Protection Officer Goal (LTG) Pt will be independent and safe with a self care HEP to prevent onset of back pain. LTG Duration 11/11/19 (10/25/19: Progressing) Assessment Summary Assessment Pt has episodes of mild flare ups but appears to be managing thus far with stretches. He is advancing his running program, and is experiencing onset of bilateral hamstring muscle pull and lower calf pain that may be low back related. Pt cautioned to monitor symptoms carefully and to discontinue running if symptoms worsen. Pt has improved with hip mobility but is mildly tight with hip IR mobility, and to a lesser extent ER. His hamstring mobility is normal at 90 deg's and pt cautioned not to overstretch. Hi back appears to be almost neutral with mild curvature at his location of discomfort today (~L3). His back discomfort location continues to be variable in nature. Pt needing education on self care 1x/month for 1-2 months. Physical Therapy Plan Frequency and Duration Frequency of Treatment 1/month Plan of Care Start Date 12/08/19 Plan of Care End Date 02/23/20 Next Visit Focus/Plan Next Note Type Treatment Note Next Visit Plan Progress pt towards independent care in 2 months. Recheck posture, Scoliosis, back involvement, hip mobility and pain complaints. Progress pt towards independent care in 2 months.
--- NOTE | 2019-12-29 16:21 | PT.OTN ---
Current Diagnoses Dorsalgia, unspecified (12/29/19) Other muscle spasm (12/29/19) Abnormal posture (12/29/19) Physical Therapy Treatment Note PT-OP-A Visit Information Start: 09/08/19 17:39 Freq: Status: Active Protocol: Document 12/29/19 08:16 LRN (Rec: 12/29/19 09:04 LRN [id number]) Out-Patient Physical Therapy Visit Information Visit Information Visit Start Time 08:16 Visit Stop Time 09:02 Total Visit Minutes 46 Visit Number 20 Evaluation Information Evaluation Date 09/09/19 Precautions Precautions Per history review: Plantar fasciitis, essential HTN, L4- L5 surgery thought to be a fusion. 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 9 yr old daughter and 11 yr old son. PT-OP-C Subjective Start: 09/08/19 17:39 Freq: Status: Active Protocol: Document 12/29/19 08:16 LRN (Rec: 12/29/19 09:04 LRN [id number]) OP-PT Subjective Patient Comments Patient Comments Pt states he is able to manage his discomfort in mid back ( indicating ~T12-L2 level). Frequency onset with lifting. Doing fast walk/run with family 2x/week. Patient Questionnaires Oswestry Low Back Index Oswestry Score 0 Oswestry Impairment 0% Impaired (Score 0) OP-PT Pain Assessment Pain Assessment Grid Paper Pain Assessment Grid Completed Yes Location Upper Thoracic Pain Location Details Level of inferior to scapula inferior angle. Intensity 1 Description- Other Pain is 0-1 Left Lower Thoracic Pain Location Details Lower thoracic Intensity 0 Low back Pain Location Details Low back Intensity 1 Scale Used Numeric (0 - 10) L Anterior Hip Pain Location Details ASIS Intensity 1 Description- Other Pain is 0-1 R Anterior hip Pain Location Details R anterior hip Intensity 1 Description- Other Pain is 0-1 PT-OP-G Mobility & Gait Start: 09/08/19 17:39 Freq: Status: Active Protocol: Document 09/09/19 08:18 LRN (Rec: 09/09/19 17:24 LRN [id number]) OP Mobility Evaluation Bed Mobility Rolling Independent Supine to and from Sit Independent Transfers Sit to Stand With difficulty leaning to L side and holds his L low back. PT-OP-J Posture/Palpation/Skin Start: 09/08/19 17:39 Freq: Status: Active Protocol: Document 09/09/19 08:18 LRN (Rec: 09/09/19 17:24 LRN [id number]) Posture Evaluation Comments Posture Comments Standing the pt has a C-curve of his back with the apex on the left at ~T6. His R Iliac crest is high. Palpation Assessment Location L lower T/S Palpation Location T6-T8 Palpation Findings Soft Tissue Tightness,Muscle Guarding,Tenderness L Lumbar paraspinals Palpation Location L lumbar paraspinals Palpation Findings Soft Tissue Tightness,Muscle Guarding,Tenderness PT-OP-K Range of Motion Start: 09/08/19 17:39 Freq: Status: Active Protocol: Document 12/29/19 08:16 LRN (Rec: 12/29/19 09:04 LRN [id number]) Hip Goniometric Range of Motion Hip Right Passive Testing Position Supine Straight Leg Raise 85 Extension 5 Internal Rotation 50 External Rotation 55 Left Passive Testing Position Supine Straight Leg Raise 85 Extension 0 Internal Rotation 48 External Rotation 50 PT-OP-L Special Tests Start: 09/08/19 17:39 Freq: Status: Active Protocol: Document 11/17/19 12:48 LRN (Rec: 11/17/19 13:39 LRN [id number]) Special Tests Lumbar Spine Special Tests Straight Leg Raise Test Results Right 90 degs, left 88 deg's. PT-OP-M Strength Start: 09/08/19 17:39 Freq: Status: Active Protocol: Document 09/09/19 08:18 LRN (Rec: 09/09/19 17:24 LRN [id number]) Trunk Strength Trunk Manual Muscle Testing Testing Position Supine Flexion 5 Normal Hip Strength Hip Manual Muscle Testing Right Flexion (L2) 4+ Good+ Adduction 3+ Fair+ Comments Generally 5/5 except as indicated above. Left Comments Generally 5/5 except as indicated above. PT-OP-Q Treatments Start: 09/08/19 17:39 Freq: Status: Active Protocol: Document 12/29/19 08:16 LRN (Rec: 12/29/19 09:04 LRN [id number]) Cardio Equipment Treadmill Duration (Minutes) 6 Speed 2.6 Incline 0 Therapeutic Exercises Supine Exercises PROM Hip ER/IR Supine Exercise Name PROM hip ER/IR Hamstring/LE neural stretch Supine Exercise Name Hamstring/LE neural stretch Side bilateral Reps/Minutes 6' Comments Extra time for phys & v cuing to perform correctly during stretch Piriformis stretch Supine Exercise Name Knee to opposite shoulder and Cross legged KTC Side left Reps/Minutes 4' Comments Phys & v cuing needed to get proper stretch Fig 4 stretch Supine Exercise Name Fig 4 stretch immediately f/b active stretch Side bilateral Reps/Minutes 3' Comments Determined max stretch tolerated, used pillow roll under thigh for support Hip flexor stretch Supine Exercise Name Hip Flexor stretch, f/b active stretch Side bilateral Comments Some extra time for positioning properly in trunk and pelvis. Other Exercises Child pose Other Exercise Name Child Pose & Angry Cat (Side stretch) Side bilateral Reps/Minutes 3' PT-OP-R Modalities Start: 09/08/19 17:39 Freq: Status: Active Protocol: Document 10/18/19 08:16 LRN (Rec: 10/18/19 09:05 LRN [id number]) Electric Stimulation Electric Stimulation Interferential Current (IFC) Body Location Back (centered @ L2-L3) Duration (Minutes) 15 Intensity 22 Target/Sweep Sweep Patient Position Prone Combined With Heat/Cold Hot Pack Hot Pack/Cold Pack Treatment Hot Pack Location Back>LB Patient Position Prone Treatment Duration (minutes) 15 PT-OP-T Assessment and Plan Start: 09/08/19 17:39 Freq: Status: Active Protocol: Document 12/29/19 08:16 LRN (Rec: 12/29/19 09:04 LRN [id number]) Physical Therapy Assessment Goals Four Impairment Pain with traveling/work activities due to poor body awareness & core stab. Short Term Goal (STG) Pt will be educated in proper sitting posture, proper body mechanics for sitting, lifting , reaching, and throwing activities for painfree mobility. STG Duration 10/17/19 (10/11/19: MET GOAL) Shelter Goal (LTG) Improve core stability with pt able to maintain transverse abdominus contraction during above stated functional activities. LTG Duration 11/11/19 (10/11/19: MET GOAL) Three Impairment Low back pain with sit to stand transfers after prolonged sitting Short Term Goal (STG) Pt will demonstrate improved sitting posture and postural awareness with ability to sit 30 minutes without onset of pain transferring to standing. STG Duration 10/14/19 (10/04/19: MET GOAL) Ice Cream Machine Operator Goal (LTG) Improve posture in standing with lessening of C-curve ( apex on L) and pt able to exercise and perform work duties with awareness of proper body mechanics and posture. (No C-Curve of mid>low back on 10/25/19; Very mild C-Curve @ L3 w/apex on L). LTG Duration 11/11/19 (12/29/19: MET GOAL) Two Impairment Decreased hip mobility (Ext lacks 10 lokesh, ER 20 L, 35 R, IR 25 L, 45 R) Short Term Goal (STG) Pt will be educated in a self care hip flexibility home program of hip stretches. (09/30/19: HEP issued for hip flexors, 10/07/19: HEP issued for hip rotators) STG Duration 09/23/19 (10/11/19: MET GOAL) Ice Cream Machine Operator Goal (LTG) Improve hip mobility for movement painfree in the anterior hip and low back (hip Ext 8 deg's, ER 40 deg's, IR 45 deg's bilaterally). (12/29/19: Hip Ext 5 degs R, 0 degs L; ER 55 degs R, 50 degs L) and IR 50 degs R, 48 degs L). LTG Duration 11/11/19 (12/29/19: Partially Met Goal: Hip ext is 5 degs R, 0 degs L) One Impairment Pt lacks appropriate self care HEP. Ice Cream Machine Operator Goal (LTG) Pt will be independent and safe with a self care HEP to prevent onset of back pain. LTG Duration 11/11/19 (12/29/19: MET GOAL) Assessment Summary Assessment Pt returns after 4 weeks on a HEP. He is able to manage his back discomfort and has not episodes of back pain. His L hip is mildly tighter than the R with extension (5 degs R , 0 degs L), hip ER (55 degs R , 50 degs L), and IR (50 degs R, 48 degs L). The pt has a home program to work towards normalizing the areas of tightness. The pt is now ready to be discharged to his independent home program. Physical Therapy Plan Discharge Physical Therapy Discharge Reasons Goals Met Discharge Comments Pt is now able to manage and control his back pain independently on his home ex program. Thank you for your referral.
== END 2020-01-02 08:25 ==
LOC: PHYS 08:15
PROVIDERS: PCP Family Medicine; Referring Provider Family Medicine; Visit Provider Family Medicine
DX: M54.9 Dorsalgia, unspecified (principal); M62.838 Other muscle spasm; R29.3 Abnormal posture
CPT/HCPCS: 97014; 97032; 97110; 97140; 97162; 97533; 97535; G0283

== ENCOUNTER → 2020-05-23 08:30 | Outpatient (CLI) | payer OTHER, SELFPAY ==
[2020-05-23] MEDS: COVID-19 VACC #1, MRNA(MOD) 100 MCG/0.5 ML VIAL IM (08:42)
== END ==
PROVIDERS: PCP Internal Medicine; Visit Provider Internal Medicine
DX: Z23 Encounter for immunization (principal)
CPT/HCPCS: 0011A; 91301

== ENCOUNTER → 2020-06-20 08:35 | Outpatient (CLI) | payer OTHER, SELFPAY ==
[2020-06-20] MEDS: COVID-19 VACC #2, MRNA(MOD) 100 MCG/0.5 ML VIAL IM (08:42)
== END ==
PROVIDERS: PCP Internal Medicine; Visit Provider Internal Medicine
DX: Z23 Encounter for immunization (principal)
CPT/HCPCS: 0012A; 91301

== ENCOUNTER → 2020-06-22 09:08 | Outpatient (CLI) | payer OTHER, SELFPAY ==
[2020-06-22 10:43] LABS: Alanine Aminotransferase 49 IU/L (<50); Albumin 3.9 g/dL (3.5-5.0); Albumin Globulin Ratio 1.3 (1.0-2.8); Alkaline Phosphatase 81 U/L (38-126); Aspartate Aminotransferase 54 IU/L (17-59); BUN Creatinine Ratio 24.1 (6-22); Bilirubin Total 0.6 mg/dL (0.2-1.3); Blood Urea Nitrogen 19 mg/dL (9-20); Calcium 8.8 mg/dL (8.4-10.2); Carbon Dioxide 28 mmol/L (22-32); Chloride 104 mmol/L (98-107); Cholesterol 172 mg/dL (140-199); Estimated Glomerular Filt Rate > 60.0 mL/min (>60); Globulin 2.9 g/dL (1.7-4.1); Glucose 111 mg/dL (80-110); HDL Cholesterol 51 mg/dL (40-60); HEMOLYSIS < 15 (0-50); LDL Cholesterol Calculated 106 mg/dL (<100); Sodium 139 mmol/L (137-145); Total Protein 6.8 g/dL (6.3-8.2); Triglycerides 73 mg/dL (35-150)
[2020-06-22 10:44] LABS: Potassium 4.1 mmol/L (3.4-5.1)
== END ==
PROVIDERS: PCP Internal Medicine; Referring Provider Internal Medicine; Visit Provider Internal Medicine
DX: E78.2 Mixed hyperlipidemia (principal); I10 Essential (primary) hypertension; Z12.5 Encounter for screening for malignant neoplasm of prostate
CPT/HCPCS: 36415; 80053; 80061; G0103

== ENCOUNTER → 2022-03-13 15:27 | Outpatient (ROUT) | payer OTHER, SELFPAY ==
[2022-03-14 13:37] LABS: Fecal Immunochemical Test Negative (Negative)
== END ==
PROVIDERS: PCP Internal Medicine; Visit Provider Internal Medicine
DX: Z12.11 Encounter for screening for malignant neoplasm of colon (principal)
CPT/HCPCS: 82274

== ENCOUNTER → 2022-03-21 12:03 | Outpatient (CLI) | payer OTHER, SELFPAY ==
[2022-03-21 14:00] LABS: Alanine Aminotransferase 16 IU/L (<50); Albumin 3.9 g/dL (3.5-5.0); Albumin Globulin Ratio 1.3 (1.0-2.8); Alkaline Phosphatase 69 U/L (38-126); Aspartate Aminotransferase 22 IU/L (17-59); BUN Creatinine Ratio 24.4 (6-22); Bilirubin Total 0.9 mg/dL (0.2-1.3); Blood Urea Nitrogen 20 mg/dL (9-20); Calcium 8.7 mg/dL (8.4-10.2); Carbon Dioxide 27 mmol/L (22-32); Chloride 104 mmol/L (98-107); Estimated Glomerular Filt Rate > 60 mL/min (>60); Glucose 103 mg/dL (80-110); HEMOLYSIS < 15 (0-50); Potassium 4.6 mmol/L (3.4-5.1); Sodium 139 mmol/L (137-145); Total Protein 6.9 g/dL (6.3-8.2)
[2022-03-21 14:27] LABS: Prostate Specific Antigen Scrn 4.18 ng/mL (0.1-4.0)
== END ==
PROVIDERS: PCP Internal Medicine; Referring Provider Internal Medicine; Visit Provider Internal Medicine
DX: I10 Essential (primary) hypertension (principal); Z79.899 Other long term (current) drug therapy; Z12.5 Encounter for screening for malignant neoplasm of prostate
CPT/HCPCS: 36415; 80053; G0103

== ENCOUNTER → 2022-03-25 09:59 | Outpatient (CLI) | payer OTHER, SELFPAY ==
[2022-03-27 07:53] LABS: PSA Free % 20.9 % (.); PSA, Total 4.5 ng/mL (0.0-4.0)
== END ==
PROVIDERS: PCP Internal Medicine; Referring Provider Internal Medicine; Visit Provider Internal Medicine
DX: R97.20 Elevated prostate specific antigen [PSA] (principal)
CPT/HCPCS: 36415; 84153; 84154

== ENCOUNTER → 2022-04-14 08:54 | Outpatient (CLI) | payer OTHER, SELFPAY ==
--- NOTE | 2022-04-14 08:56 | DI.RAD.S_ITS ---
PROCEDURE: XR LUMBAR SPINE 2-3V INDICATIONS: pain, hx of surgery TECHNIQUE: 3 views of the lumbar spine were acquired. COMPARISON: [facility], , L-SPINE 2-3 VIEWS, 04/27/2009, 17:27. FINDINGS: Bones: 5 [id number] vertebrae are present. Grade 1 retrolisthesis of L3 on L4. Mild disc height loss at L5-S1. Moderate facet arthrosis at L5-S1. No vertebral body compression fractures. No suspicious bony lesions. Soft tissues: Overlying bowel gas pattern is normal. No suspicious soft tissue calcifications. IMPRESSION: Mild lumbosacral degenerative disc disease and moderate facet arthrosis. Dictated by: Kevin Mahoney M.D. on 04/14/2022 at 10:34 Approved by: Kevin Mahoney M.D. on 04/14/2022 at 10:35
== END ==
PROVIDERS: PCP Internal Medicine; Referring Provider Nurse Practitioner Family; Visit Provider Nurse Practitioner Family
DX: M51.37 Other intervertebral disc degeneration, lumbosacral region (principal); M47.817 Spondylosis without myelopathy or radiculopathy, lumbosacral region; M54.50 Low back pain, unspecified; G89.29 Other chronic pain
CPT/HCPCS: 72100

== ENCOUNTER → 2023-07-02 11:20 | Outpatient (CLI) | payer OTHER, SELFPAY ==
[2023-07-02 12:44] LABS: Prostate Specific Antigen 4.62 ng/mL (0.10-4.00)
== END ==
PROVIDERS: PCP Internal Medicine; Referring Provider Internal Medicine; Visit Provider Internal Medicine
DX: R97.20 Elevated prostate specific antigen [PSA] (principal)
CPT/HCPCS: 36415; 84153

== ENCOUNTER → 2023-10-05 15:36 | Outpatient (CLI) | payer OTHER, SELFPAY ==
[2023-10-05 16:57] LABS: Alanine Aminotransferase 11 IU/L (<50); Albumin 3.9 g/dL (3.5-5.0); Albumin Globulin Ratio 1.5 (1.0-2.8); Alkaline Phosphatase 75 U/L (38-126); Aspartate Aminotransferase 21 IU/L (17-59); Bilirubin Total 1.2 mg/dL (0.2-1.3); Blood Urea Nitrogen 16 mg/dL (9-20); Calcium 8.5 mg/dL (8.4-10.2); Carbon Dioxide 25 mmol/L (22-32); Chloride 108 mmol/L (98-107); Cholesterol 155 mg/dL (140-199); Estimated Glomerular Filt Rate > 60 mL/min (>60); Globulin 2.6 g/dL (1.7-4.1); Glucose 103 mg/dL (80-110); HDL Cholesterol 51 mg/dL (40-60); HEMOLYSIS < 15 (0-50); LDL Cholesterol Calculated 90 mg/dL (<100); Potassium 3.8 mmol/L (3.4-5.1); Sodium 137 mmol/L (137-145); Total Protein 6.5 g/dL (6.3-8.2); Triglycerides 68 mg/dL (35-150)
[2023-10-05 17:24] LABS: Prostate Specific Antigen 3.19 ng/mL (0.10-4.00)
== END ==
PROVIDERS: PCP Internal Medicine; Referring Provider Internal Medicine; Visit Provider Internal Medicine
DX: I10 Essential (primary) hypertension (principal); R97.20 Elevated prostate specific antigen [PSA]
CPT/HCPCS: 36415; 80053; 80061; 84153

== ENCOUNTER → 2024-08-18 09:44 | Outpatient (CLI) | payer SELFPAY ==
[2024-08-19 14:36] LABS: Fecal Immunochemical Test Negative (Negative)
== END ==
LOC: LAB 09:54
PROVIDERS: PCP Internal Medicine; Referring Provider Internal Medicine; Visit Provider Internal Medicine
DX: Z12.11 Encounter for screening for malignant neoplasm of colon (principal)
CPT/HCPCS: 82274